=== PATIENT | female | born 1945 | race Caucasian/White ===

== ENCOUNTER 2016-12-28 10:58 | Inpatient (IN) ==
--- NOTE | 2016-12-28 11:53 | Emergency Department Note ---
Richard Lemons Brittany, am scribing for, and in the presence of, Messi Barahona MD 11:35. Jun Lemons Robert M, MD, personally performed the services described in this documentation, ascribed by Susanna Ramos in my presence, and it is both accurate and complete . Arrival - Arrival Chief Complaint: Weakness ED Nursing Triage Note: generalized weakness, pt has been sitting in a chair for 2 days unable to get up, pt denies pain or discomfort, just states she was unable to get up,. accu check per ems 170mg/dl Mode of Arrival: Stretcher Limitations: No Limitations Source: Patient, RN Notes Reviewed - History of Present Illness HPI Narrative: Patient is a 71 y/o disheveled, obese white female presenting to the ED by EMS from home for further evaluation of generalized weakness x1 week, worsening in the last two days. Patient reports that she had been seated in a chair x2 days due to inability to get herself up from the chair. Patient denies any associated N/V, pain or discomforts. She reports that while in the chair she did urinate and have a bowel movement due to inability to get up, stating "I had no choice." Patient appears to have urine and fecal matter on her clothing. Patient reports a history of Diabetes Mellitus. She does note having chronically swollen lower extremities and states that she has not been able to get her diuretic. She has no other complaint/pain in the ED at this time. Onset (ago): week(s) (1) Consistency: constant Allergies/Adverse Reactions: Allergies Allergy/AdvReac Type Severity Reaction Status Date / Time No Known Allergies Allergy Verified 12/28/16 11:20 Home Medications: Home Medications Medication Instructions Recorded Confirmed Type Aspirin EC Tab 325 mg PO DAILY 12/28/16 12/28/16 History Atorvastatin [Lipitor] 40 mg PO BEDTIME 12/28/16 12/28/16 History Carvedilol [Carvedilol] 6.25 mg PO BID W/MEALS 12/28/16 12/28/16 History Cyanocobalamin (Vitamin B-12) 1,000 mcg PO DAILY 12/28/16 12/28/16 History [Vitamin B-12] Dabigatran [Pradaxa] 150 mg PO DAILY 12/28/16 12/28/16 History Ferrous Sulfate 325 mg PO DAILY 12/28/16 12/28/16 History Furosemide Tab [Lasix Tab] 80 mg PO BID DIURETIC 12/28/16 12/28/16 History Glimepiride [Glimepiride] 4 mg PO BID 12/28/16 12/28/16 History Magnesium Oxide 400 mg PO DAILY 12/28/16 12/28/16 History Meclizine [Antivert] 25 mg PO TID PRN 12/28/16 12/28/16 History Meloxicam 7.5 mg PO DAILY 12/28/16 12/28/16 History Phenytoin ER Cap [Dilantin Cap] 400 mg PO BEDTIME 12/28/16 12/28/16 History Potassium Chloride [Klor-Con 10] 10 meq PO DAILY 12/28/16 12/28/16 History dilTIAZem HCl [Diltiazem ER] 360 mg PO DAILY 12/28/16 12/28/16 History metFORMIN [Glucophage] 1,000 mg PO BID W/MEALS 12/28/16 12/28/16 History Review of System - Review of System 12 point system: reviewed and no additional remarkable complaints except as stated - Review of System Constitutional: Present: weakness (generalized). Absent: chills, diaphoresis, fever Eyes: Absent: vision change Head/Ears/Nose/Throat: Absent: nasal drainage, sore throat Respiratory: Absent: respiratory distress Cardiovascular: Absent: chest pain Gastrointestinal: Absent: abdominal pain, nausea, vomiting, diarrhea Genitourinary female: Absent: dysuria, frequency, urgency Musculoskeletal: Present: other (lower extremity swelling). Absent: arm pain, back pain, leg pain, neck pain Skin: Absent: rash Neurological: Absent: headache Psychiatric: Absent: anxiety, depression Medical,Surgical,& Family Hx - Medical History Cardio: History of: Cardiac Dysrhythmia (AFIB), CHF, CAD, Hypertension, [place] Neurology: History of: Cerebrovascular Accident, Seizures Endocrine: History of: Diabetes Mellitus (NIDDM) Respiratory: No history of: COPD Renal: History of: Renal Problems (ARF) - Surgical History Cardiac Surgeries: Sugical HX of: Femoral-Popliteal Bypass Graft, Cardiac Catheterization (2002 here at [facility] by Dr. Jiang), Cardiac Surgery (CABG) - Family History Family History: Reports;: Family Hypertension (Mother) - Social History Smoking Status: Never smoker Exam Vital Signs: Vital Signs Temperature 99.3 F 12/28/16 10:58 Pulse Rate 122 H 12/28/16 10:58 Respiratory Rate 20 12/28/16 10:58 O2 Sat by Pulse Oximetry 94 L 12/28/16 10:58 - General General appearance: alert, in no apparent distress, obese, other (disheveled appearing white female, clothing covered in urine and fecal matter) - Head Head exam: Present: atraumatic, normocephalic, normal inspection - Eye Eye exam: Present: normal appearance, PERRL, EOMI - ENT ENT exam: Present: normal exam, normal oropharynx - Neck Neck exam: Present: normal inspection, full ROM, trachea midline - Chest Chest inspection: Present: normal inspection, symmetric chest wall rise - Respiratory Respiratory exam: Present: normal lung sounds bilaterally - Cardiovascular Cardiovascular exam: Present: regular rate, normal rhythm, normal heart sounds - Abdominal Exam Abdominal exam: Present: soft, normal bowel sounds. Absent: tenderness - Extremities Exam Extremities exam: Absent: normal inspection (evidence of chronic venous disease , swollen bilateral lower extremities with thickened skin and there is a bulla noted to the anterior left ankle) - Back Exam Back exam: Present: normal inspection - Neurological Exam Neurological exam: Present: alert, oriented X3, CN II-XII intact. Absent: motor sensory deficit - Psychiatric Psychiatric exam: Present: normal affect, normal mood - Skin Skin exam: Present: warm, dry, other (bulla noted to the anterior left ankle) Course - Consultations Consultation #1: We will admit to the hospitalist service. Time: 14:01 Results - Labs CBC & BMP: 12/28/16 12:57 12/28/16 12:57 Lab Results: I have reviewed the patients labs Labs: Lab Results WBC 9.8 T/CUMM (4-12) 12/28/16 12:57 RBC 5.77 MC/CUMM (3.8-5.5) H 12/28/16 12:57 Hgb 16.6 GM/DL (12.0-16.0) H 12/28/16 12:57 Hct 52.2 VOL% (35.7-47.0) H 12/28/16 12:57 MCV 90.5 FL (87-102) 12/28/16 12:57 MCH 29 PG (27-34) 12/28/16 12:57 MCHC 31.8 GM/DL (32-36) L 12/28/16 12:57 RDW 18.4 % (9.3-17.3) H 12/28/16 12:57 Plt Count 194 T/CUMM (130-400) 12/28/16 12:57 MPV 10.2 FL (9.6-12.0) 12/28/16 12:57 Neut % (Auto) 81.7 % (38.7-73.9) H 12/28/16 12:57 Lymph % (Auto) 8.2 % (21.3-54.2) L 12/28/16 12:57 [place] % (Auto) 8.7 % (1.7-12.7) 12/28/16 12:57 Eos % (Auto) 0.2 % (0.00-10.9) 12/28/16 12:57 Baso % (Auto) 0.7 % (0.0-0.8) 12/28/16 12:57 Neut # (Auto) 8.0 10*3/uL (1.4-7.4) H 12/28/16 12:57 Lymph # (Auto) 0.8 10*3/uL (1.4-4.0) L 12/28/16 12:57 [place] # (Auto) 0.9 10*3/uL (0.11-0.8) H 12/28/16 12:57 Eos # (Auto) 0.0 10*3/uL (0.0-0.87) 12/28/16 12:57 Baso # (Auto) 0.1 10*3/uL (0.0-0.2) 12/28/16 12:57 Immature Gran % 0.5 % 12/28/16 12:57 Nucleated RBC % 0.0 /100WBC 12/28/16 12:57 Immature Gran # 0.05 # 12/28/16 12:57 Nucleated RBCs # 0.00 10*3/uL 12/28/16 12:57 Sodium 140 MMOL/L (136-145) 12/28/16 12:57 Potassium 4.0 MMOL/L (3.5-5.1) 12/28/16 12:57 Chloride 106 MMOL/L (98-107) 12/28/16 12:57 Carbon Dioxide 26 MMOL/L (21-32) 12/28/16 12:57 Anion Gap 12.0 MMOL/L (5.0-15.0) 12/28/16 12:57 BUN 30 MG/DL (7-18) H 12/28/16 12:57 Creatinine 1.30 MG/DL (0.55-1.02) H 12/28/16 12:57 GFR Calculation 48 ML/MIN 12/28/16 12:57 BUN/Creatinine Ratio 23.00 RATIO (6.00-20.00) H 12/28/16 12:57 Glucose 174 MG/DL (74-106) H 12/28/16 12:57 Calculated Osmolality 288.4 MOS/KG (273-304) 12/28/16 12:57 Lactic Acid 2.0 MMOL/L (0.4-2.0) 12/28/16 12:57 Calcium 9.1 MG/DL (8.5-10.1) 12/28/16 12:57 Magnesium 1.8 MG/DL (1.8-2.4) 12/28/16 12:57 Total Creatine Kinase 166 U/L (26-192) 12/28/16 12:57 CK-MB (CK-2) 2.3 NG/ML (0.5-3.6) 12/28/16 12:57 Troponin I 0.059 NG/ML (0.00-0.045) H 12/28/16 12:57 B-Natriuretic Peptide 2595 PG/ML (2-100) H 12/28/16 12:57 Amylase 26 U/L (25-115) 12/28/16 12:57 Lipase 72.0 U/L (73-393) L 12/28/16 12:57 Urine Color Josselyn (Yellow) 12/28/16 11:45 Urine Appearance Cloudy (Clear) 12/28/16 11:45 Urine pH 5.0 (4.5-8.0) 12/28/16 11:45 Ur Specific [place] 1.017 (1.001-1.035) 12/28/16 11:45 Urine Protein >=500 MG/DL 12/28/16 11:45 Urine Glucose (UA) Negative mg/dL (Negative) 12/28/16 11:45 Urine Ketones Negative mg/dL (Negative) 12/28/16 11:45 Urine Blood Small mg/dL (Negative) 12/28/16 11:45 Urine Nitrate Negative (Negative) 12/28/16 11:45 Urine Bilirubin Negative mg/dL (Negative) 12/28/16 11:45 Urine Urobilinogen 2.0 EU/DL (0.2-1.0) H 12/28/16 11:45 Urine Leukocytes Moderate [place]/ul (Negative) H 12/28/16 11:45 Urine RBC 4 /HPF (0-4) 12/28/16 11:45 Urine WBC 50 /HPF (0-6) 12/28/16 11:45 Urine WBC Clumps Many /HPF (<1) 12/28/16 11:45 Ur Squamous Epith Cells Occasional /HPF (0-10) 12/28/16 11:45 Urine Bacteria Many /HPF (Few) 12/28/16 11:45 Urine Mucus Occasional /LPF (Occasional) 12/28/16 11:45 Ur Culture Indicated? Results to follow 12/28/16 11:45 Urine Myoglobin Negative (Negative) 12/28/16 11:45 Lab Results WBC 9.8 T/CUMM (4-12) 12/28/16 12:57 RBC 5.77 MC/CUMM (3.8-5.5) H 12/28/16 12:57 Hgb 16.6 GM/DL (12.0-16.0) H 12/28/16 12:57 Hct 52.2 VOL% (35.7-47.0) H 12/28/16 12:57 MCV 90.5 FL (87-102) 12/28/16 12:57 MCH 29 PG (27-34) 12/28/16 12:57 MCHC 31.8 GM/DL (32-36) L 12/28/16 12:57 RDW 18.4 % (9.3-17.3) H 12/28/16 12:57 Plt Count 194 T/CUMM (130-400) 12/28/16 12:57 MPV 10.2 FL (9.6-12.0) 12/28/16 12:57 Neut % (Auto) 81.7 % (38.7-73.9) H 12/28/16 12:57 Lymph % (Auto) 8.2 % (21.3-54.2) L 12/28/16 12:57 [place] % (Auto) 8.7 % (1.7-12.7) 12/28/16 12:57 Eos % (Auto) 0.2 % (0.00-10.9) 12/28/16 12:57 Baso % (Auto) 0.7 % (0.0-0.8) 12/28/16 12:57 Neut # (Auto) 8.0 10*3/uL (1.4-7.4) H 12/28/16 12:57 Lymph # (Auto) 0.8 10*3/uL (1.4-4.0) L 12/28/16 12:57 [place] # (Auto) 0.9 10*3/uL (0.11-0.8) H 12/28/16 12:57 Eos # (Auto) 0.0 10*3/uL (0.0-0.87) 12/28/16 12:57 Baso # (Auto) 0.1 10*3/uL (0.0-0.2) 12/28/16 12:57 Immature Gran % 0.5 % 12/28/16 12:57 Nucleated RBC % 0.0 /100WBC 12/28/16 12:57 Immature Gran # 0.05 # 12/28/16 12:57 Nucleated RBCs # 0.00 10*3/uL 12/28/16 12:57 Sodium 140 MMOL/L (136-145) 12/28/16 12:57 Potassium 4.4 MMOL/L (3.5-5.1) 12/28/16 12:57 Chloride 105 MMOL/L (98-107) 12/28/16 12:57 Carbon Dioxide 25 MMOL/L (21-32) 12/28/16 12:57 Anion Gap 14.4 MMOL/L (5.0-15.0) 12/28/16 12:57 BUN 31 MG/DL (7-18) H 12/28/16 12:57 Creatinine 1.20 MG/DL (0.55-1.02) H 12/28/16 12:57 GFR Calculation 53 ML/MIN 12/28/16 12:57 BUN/Creatinine Ratio 25.00 RATIO (6.00-20.00) H 12/28/16 12:57 Glucose 173 MG/DL (74-106) H 12/28/16 12:57 Calculated Osmolality 289.4 MOS/KG (273-304) 12/28/16 12:57 Lactic Acid 2.0 MMOL/L (0.4-2.0) 12/28/16 12:57 Calcium 9.1 MG/DL (8.5-10.1) 12/28/16 12:57 Magnesium 1.8 MG/DL (1.8-2.4) 12/28/16 12:57 Total Bilirubin 1.90 MG/DL (0.2-1.0) H 12/28/16 12:57 AST 23 U/L (0-37) 12/28/16 12:57 ALT 22 U/L (13-56) 12/28/16 12:57 Alkaline Phosphatase 98 U/L (45-117) 12/28/16 12:57 Total Creatine Kinase 166 U/L (26-192) 12/28/16 12:57 CK-MB (CK-2) 2.3 NG/ML (0.5-3.6) 12/28/16 12:57 Troponin I 0.059 NG/ML (0.00-0.045) H 12/28/16 12:57 B-Natriuretic Peptide 2595 PG/ML (2-100) H 12/28/16 12:57 Total Protein 7.1 G/DL (6.4-8.3) 12/28/16 12:57 Albumin 3.2 G/DL (3.4-5.0) L 12/28/16 12:57 Globulin 3.9 G/DL (2.3-3.5) H 12/28/16 12:57 Albumin/Globulin Ratio 0.8 RATIO (1.1-2.2) L 12/28/16 12:57 Amylase 26 U/L (25-115) 12/28/16 12:57 Lipase 72.0 U/L (73-393) L 12/28/16 12:57 Urine Color Josselyn (Yellow) 12/28/16 11:45 Urine Appearance Cloudy (Clear) 12/28/16 11:45 Urine pH 5.0 (4.5-8.0) 12/28/16 11:45 Ur Specific [place] 1.017 (1.001-1.035) 12/28/16 11:45 Urine Protein >=500 MG/DL 12/28/16 11:45 Urine Glucose (UA) Negative mg/dL (Negative) 12/28/16 11:45 Urine Ketones Negative mg/dL (Negative) 12/28/16 11:45 Urine Blood Small mg/dL (Negative) 12/28/16 11:45 Urine Nitrate Negative (Negative) 12/28/16 11:45 Urine Bilirubin Negative mg/dL (Negative) 12/28/16 11:45 Urine Urobilinogen 2.0 EU/DL (0.2-1.0) H 12/28/16 11:45 Urine Leukocytes Moderate [place]/ul (Negative) H 12/28/16 11:45 Urine RBC 4 /HPF (0-4) 12/28/16 11:45 Urine WBC 50 /HPF (0-6) 12/28/16 11:45 Urine WBC Clumps Many /HPF (<1) 12/28/16 11:45 Ur Squamous Epith Cells Occasional /HPF (0-10) 12/28/16 11:45 Urine Bacteria Many /HPF (Few) 12/28/16 11:45 Urine Mucus Occasional /LPF (Occasional) 12/28/16 11:45 Ur Culture Indicated? Results to follow 12/28/16 11:45 Urine Myoglobin Negative (Negative) 12/28/16 11:45 - Diagnostic Findings Procedure: Chest x-ray: report reviewed by me Disposition Clinical Impression: CHF (congestive heart failure), Generalized weakness, Anasarca, Bilateral lower leg cellulitis, Type 2 diabetes mellitus, Physical deconditioning, UTI ( urinary tract infection) Case discussed with: patient Disposition: Still a Patient Condition: Stable Time of Disposition: 14:01
[2016-12-28 12:04] LABS: Apearance,Urine CLOUDY (Clear); Bacteria,Urine Many /HPF (Few); Bilirubin,Urine Negative (Negative); Blood, Urine Small mg/dL (Negative); Glucose,Urine (UA) Negative (Negative); Ketones,Urine Negative (Negative); Mucus,Urine Occasional /LPF (Occasional); Nitrite,Urine Negative (Negative); Protein,Urine >=500 MG/DL; RBC,Urine 4 /HPF (0-4); Squamous Epithelial Cell,Urine Occasional /HPF (0-10); Urine Color Amber (Yellow); Urine Specific Gravity 1.017 (1.001-1.035); WBC,Urine 50 /HPF (0-6)
--- NOTE | 2016-12-28 12:27 | XRay Report ---
History: Weakness. History of CHF and hypertension Date: 12/28/2016 Study: Chest x-ray AP portable Comparison exam: July 12, 2015 chest x-ray There is cardiomegaly and pulmonary vascular engorgement. The mediastinal contours are similar to the previous study. There is some hazy bibasilar pulmonary edema and mild bilateral pleural effusion. Osseous structures are unchanged. Impression: Cardiomegaly and evidence of CHF with mild bibasilar pulmonary edema and pleural effusion PROCEDURE INTERPRETED AT [facility] DEPARTMENT OF RADIOLOGY Final Report Signed by: Dr. Edith Vásquez
[2016-12-28 13:12] LABS: Basophils # 0.1 10*3/uL (0.0-0.2); Basophils % 0.7 % (0.0-0.8); Eosinophils % 0.2 % (0.00-10.9); Hematocrit 52.2 VOL% (35.7-47.0); Hemoglobin 16.6 GM/DL (12.0-16.0); Immature Granulocytes % 0.5 %; Immature Granulocytes Absolute 0.05 #; Lymphocytes # 0.8 10*3/uL (1.4-4.0); Lymphocytes % 8.2 % (21.3-54.2); Mean Corpuscular HGB Conc 31.8 GM/DL (32-36); Mean Corpuscular Hemoglobin 29 PG (27-34); Mean Corpuscular Volume 90.5 FL (87-102); Mean Platelet Volume 10.2 FL (9.6-12.0); Monocytes # 0.9 10*3/uL (0.11-0.8); Monocytes % 8.7 % (1.7-12.7); Neutrophils % 81.7 % (38.7-73.9); Platelet Count 194 T/CUMM (130-400); Red Blood Count 5.77 MC/CUMM (3.8-5.5); Red Cell Distribution Width 18.4 % (9.3-17.3); White Blood Count 9.8 T/CUMM (4-12)
[2016-12-28 13:27] LABS: Calcium 9.1 MG/DL (8.5-10.1); Magnesium 1.8 MG/DL (1.8-2.4); Osmolality,Calculated 288.4 MOS/KG (273-304)
[2016-12-28 13:38] LABS: Troponin I Only 0.059 NG/ML (0.00-0.045)
--- NOTE | 2016-12-28 14:33 | Hospitalist History & Physical ---
History of Present Illness History of present illness: Ms. Dawson is a 71 year old female Home Medications Medication Instructions Recorded Confirmed Type Aspirin EC Tab 325 mg PO DAILY 12/28/16 12/28/16 History Atorvastatin [Lipitor] 40 mg PO BEDTIME 12/28/16 12/28/16 History Carvedilol [Carvedilol] 6.25 mg PO BID W/MEALS 12/28/16 12/28/16 History Cyanocobalamin (Vitamin B-12) 1,000 mcg PO DAILY 12/28/16 12/28/16 History [Vitamin B-12] Dabigatran [Pradaxa] 150 mg PO DAILY 12/28/16 12/28/16 History Ferrous Sulfate 325 mg PO DAILY 12/28/16 12/28/16 History Furosemide Tab [Lasix Tab] 80 mg PO BID DIURETIC 12/28/16 12/28/16 History Glimepiride [Glimepiride] 4 mg PO BID 12/28/16 12/28/16 History Magnesium Oxide 400 mg PO DAILY 12/28/16 12/28/16 History Meclizine [Antivert] 25 mg PO TID PRN 12/28/16 12/28/16 History Meloxicam 7.5 mg PO DAILY 12/28/16 12/28/16 History Phenytoin ER Cap [Dilantin Cap] 400 mg PO BEDTIME 12/28/16 12/28/16 History Potassium Chloride [Klor-Con 10] 10 meq PO DAILY 12/28/16 12/28/16 History dilTIAZem HCl [Diltiazem ER] 360 mg PO DAILY 12/28/16 12/28/16 History metFORMIN [Glucophage] 1,000 mg PO BID W/MEALS 12/28/16 12/28/16 History Allergies Allergy/AdvReac Type Severity Reaction Status Date / Time No Known Allergies Allergy Verified 12/28/16 11:20 Medical,Surgical,& Family Hx - Medical History Cardio: History of: Cardiac Dysrhythmia (AFIB), CHF, CAD, Hypertension, [place] Neurology: History of: Cerebrovascular Accident, Seizures Endocrine: History of: Diabetes Mellitus (NIDDM) Respiratory: No history of: COPD Renal: History of: Renal Problems (ARF) - Surgical History Cardiac Surgeries: Sugical HX of: Femoral-Popliteal Bypass Graft, Cardiac Catheterization (2002 here at [facility] by Dr. Jiang), Cardiac Surgery (CABG) - Family History Family History: Reports;: Family Hypertension (Mother) - Social History Smoking Status: Never smoker Exam - Constitutional Vitals: Period Temp Pulse Resp BP Sys/Funk Pulse Ox Last 24 Hr 99.3 F-99.3 F 122-122 18-20 94 Results - Labs CBC & BMP: 12/28/16 12:57 12/28/16 12:57
[2016-12-28] MEDS ORDERED: ACETAMINOPHEN 325 MG TABLET PO PRN (15:06)
[2016-12-28] MEDS ORDERED: ONDANSETRON 4 MG/2 ML VIAL IV PRN (15:06)
[2016-12-28] MEDS ORDERED: DEXTROSE 50% 25 GM/50 ML VIAL IV PRN (15:06)
[2016-12-28] MEDS ORDERED: GLUCAGON 1 MG VIAL IM PRN (15:06)
[2016-12-28] MEDS ORDERED: hydrALAZINE 20 MG/1 ML VIAL IV PRN (15:18)
[2016-12-28 15:25] LABS: Albumin 3.2 G/DL (3.4-5.0); Bilirubin,Total 1.9 MG/DL (0.2-1.0); Calcium 9.1 MG/DL (8.5-10.1); Osmolality,Calculated 289.4 MOS/KG (273-304); Potassium 4.4 MMOL/L (3.5-5.1); Total Protein 7.1 G/DL (6.4-8.3)
--- NOTE | 2016-12-28 15:52 | Hospitalist Progress Note ---
Assessment and Plan - Time spent with patient Time spent with patient: Greater than 30 minutes (1) Bilateral lower leg cellulitis Status: Acute Assessment and plan: Generalized weakness; CHF; Hypertension: Admit Re-check labs (A.M.) including BNP diuretics start on Antibiotics Check A1c Venous Doppler of legs CXR in a.m. Consult OT and PT. Consult Wound Care Consulted Cardiology: (Patient of Dr Ferrer.): Dr Lorenzo for CHF exacerbation. Start Nitro paste and hydralazine and continue home meds to control BP. Monitor BS; add sliding scale protocol. Current Visit: Yes (2) CHF (congestive heart failure) Status: Acute Current Visit: Yes (3) Generalized weakness Status: Acute Current Visit: Yes (4) Type 2 diabetes mellitus Status: Acute Current Visit: Yes (5) Atrial fibrillation Status: Acute Current Visit: No Hospitalist: Subjective Interval history: Ms Dawson is chronically ill 71 y/o white female that presented to [facility] ER this afternoon via EMS for evaluation generalized weakness x1 week, worsening in the last 2 days. Patient has a medical history significant for Afib, CHF, CAD, HTN, [place], CVA, Seizures, DM, ARF. Patient has a surgical history: CABG; Cardiac Catherization; Femoral-Popliteal Bypass graft. The patient reports she had been seated in a chair at home x2 days d/t the inability to get herself up from chair d/t "too weak". Patient denies any nausea, vomiting, or pain. She reports urinating and having a bowel movement on herself due to inability to get up "I could not get up so I just had to let it go". Presented to the ED via EMS(neighbor called) the patient was assessed. The patient had a low Temp 99.3; RR 20; 94% Sat on 2L NC. Labs were obtained: WBC 9.8; Hgb 16.6; Hct 52.2; Plt 194; Sodium 140; Potassoim 4.4; BUN 31; Creatinine 1.20; GFR 53; Lactic Acid 2.0; Total Bilirubin 1.90; AST 23; ALT 22; Troponin 0.059; BNP 2595; Albumin 3.2; Urine: [place], Cloudy; Moderate Leukocytes ; WBC 50; negative nitrate. Chest xray: Cardiomegaly and evidence of CHF with mild bibasilar pulmonary edema and pleural effusion. After brief discussion with Dr Barahona and Dr Gurrola, the patient will be admitted to the hospitalist services for further evaluation and care. Consulted Dr Lorenzo - content management specialist for cardiac services. Medications has been reviewed and reconciliation will follow. Code Status: Full Code. PCP MD: Dr Lew Military Communications Specialist : Dr Ferrer Exam - Constitutional Vitals: Period Temp Pulse Resp BP Sys/Funk Pulse Ox Last 24 Hr 99.3 F-99.3 F 122-122 18-20 94 General appearance: no acute distress - Head Head exam: Present: normal inspection - Eye Eye exam: Present: EOMI Pupils: Present: WILBERT - Neck Neck exam: Present: normal inspection - Respiratory Respiratory exam: Present: clear to auscultation bilaterally - Cardiovascular Cardiovascular exam: Present: irregular rhythm (Afib history) - GI/Abdominal GI/Abdominal exam: Present: normal bowel sounds, soft. Absent: guarding, tenderness, rebound - Expanded Left Lower Lower leg exam: Present: swelling (dry, without weeping noted; large anterior fluid filled Bulla), erythema Ankle exam: Present: swelling Foot/Toe exam: Present: swelling Right Lower Lower leg exam: Present: swelling (entire right and left lower leg red ( cellulitis) without weeping, dry), erythema - Neurological Exam Neurological exam: Present: alert, oriented X3 - Psychiatric Psychiatric exam: Present: normal mood - Skin Skin exam: Present: warm, dry, other (extensive redness and swelling to bilteral lower legs; left anterior ankle large fluid filled bulla) Results - Labs CBC & BMP: 12/28/16 12:57 12/28/16 12:57 Lab Results: I have reviewed the past 24 hour labs - Diagnostic Findings Procedure: X-ray: report reviewed by me (cardiomegaly and evidence of CHF with mild bibasilar pulmonary edema and pleural effusion) Quality Measures - VTE Contraindication to Mechanical VTE Prophylaxis: Local Inflammation
[2016-12-28] MEDS: INSULIN LISPRO 100 UNIT/ML SUBCUT SCH ×2 (16:52→22:13)
[2016-12-28 18:07] LABS: INR 1.3; PT Patient Result 14.4 SECS
[2016-12-28] MEDS: FUROSEMIDE 40 MG/4 ML VIAL IV SCH (18:40)
[2016-12-28] MEDS: CEFTAROLINE 600 MG in SODIUM CHLORIDE 0.9% 100 ML IV SCH (18:44)
[2016-12-28] MEDS: CARVEDILOL 6.25 MG TABLET PO SCH (18:47)
[2016-12-28] MEDS: hydrALAZINE 25 MG TABLET PO SCH ×2 (18:47→22:15)
[2016-12-28] MEDS: NITROGLYCERIN 2% OINT 1 INCH/GM PACK TOP SCH (18:47)
[2016-12-28] MEDS: PHENYTOIN ER 100 MG CAPSULE PO SCH (22:14)
[2016-12-28] MEDS: GLIMEPIRIDE 4 MG TABLET PO SCH (22:14)
[2016-12-28] MEDS: ATORVASTATIN 40 MG TABLET PO SCH (22:15)
[2016-12-29] MEDS: NITROGLYCERIN 2% OINT 1 INCH/GM PACK TOP SCH ×2 (00:21→05:50)
[2016-12-29 04:30] LABS: Basophils # 0.1 10*3/uL (0.0-0.2); Eosinophils # 0.2 10*3/uL (0.0-0.87); Eosinophils % 2.8 % (0.00-10.9); Hemoglobin 13.4 GM/DL (12.0-16.0); Immature Granulocytes % 0.4 %; Immature Granulocytes Absolute 0.03 #; Lymphocytes # 0.9 10*3/uL (1.4-4.0); Lymphocytes % 11.3 % (21.3-54.2); Mean Corpuscular HGB Conc 31.9 GM/DL (32-36); Mean Corpuscular Hemoglobin 29 PG (27-34); Mean Corpuscular Volume 89.2 FL (87-102); Mean Platelet Volume 10.6 FL (9.6-12.0); Monocytes # 0.7 10*3/uL (0.11-0.8); Monocytes % 8.2 % (1.7-12.7); Neutrophils # 6.2 10*3/uL (1.4-7.4); Neutrophils % 76.3 % (38.7-73.9); Platelet Count 154 T/CUMM (130-400); Red Blood Count 4.71 MC/CUMM (3.8-5.5); Red Cell Distribution Width 17.3 % (9.3-17.3); White Blood Count 8.2 T/CUMM (4-12)
[2016-12-29 05:07] LABS: Albumin 2.3 G/DL (3.4-5.0); Bilirubin,Total 2.1 MG/DL (0.2-1.0); Calcium 8.5 MG/DL (8.5-10.1); Magnesium 1.5 MG/DL (1.8-2.4); Osmolality,Calculated 295.6 MOS/KG (273-304); Potassium 3.8 MMOL/L (3.5-5.1)
[2016-12-29] MEDS: FUROSEMIDE 40 MG/4 ML VIAL IV SCH ×2 (05:44→15:47)
[2016-12-29] MEDS: CEFTAROLINE 600 MG in SODIUM CHLORIDE 0.9% 100 ML IV SCH ×2 (05:48→17:47)
[2016-12-29] MEDS: INSULIN LISPRO 100 UNIT/ML SUBCUT SCH ×4 (07:55→22:25)
[2016-12-29] MEDS: CARVEDILOL 6.25 MG TABLET PO SCH ×2 (08:54→16:09)
[2016-12-29] MEDS ORDERED: DILTIAZEM CD 180 MG CAPSULE PO SCH (09:00)
--- NOTE | 2016-12-29 09:08 | Hospitalist Progress Note ---
Assessment and Plan (1) Systolic CHF, acute on chronic Status: Acute Assessment and plan: Impression: 1. Acute on chronic systolic congestive heart failure 2. Probable cellulitis bilateral lower extremities 3. Atrial fibrillation 4. Venous stasis disease 5. Possible urinary tract infection (positive urine culture) Plan: Diuresis for the heart failure. Continue home medications. Antibiotics and elevation for the venous stasis disease and secondary cellulitis. Physical therapy evaluation. This note was completed using [employer] voice recognition software. There may be rn plastics errors as a result. Current Visit: Yes Hospitalist: Subjective Interval history: Follow-up acute on chronic systolic congestive heart failure, atrial fibrillation, and cellulitis. The patient says that she was too weak to get to her medications, and had to spend a couple of days in her chair. She lives alone. She is usually mobile at home with a walker or cane. She was hospitalized here last year in atrial fibrillation. At that time, she had an echocardiogram that showed an ejection fraction of 30%. She ended up going to the rehab unit and to the LTAC, and then eventually made at home. She says that she is not interested in repeating that sequence of events. She had bypass grafting in this facility in 2002. She reports that she takes all of her medications, except for the 2 day episode mentioned above when she was too weak to get to her pills. Exam - Constitutional Vitals: Period Temp Pulse Resp BP Sys/Funk Pulse Ox Last 24 Hr 97.2 F-99.3 F 83-122 18-20 124-147/75-90 94-97 Vital signs are noted above. Heart is irregular with a 2/6 systolic ejection murmur. She has a few rhonchi in the chest. Abdomen is soft with no mass. She has chronic venous stasis changes with generalized edema and erythema of both lower extremities. She is awake and alert Results - Labs CBC & BMP: 12/29/16 04:21 12/29/16 04:20 Lab Results: I have reviewed the past 24 hour labs - Diagnostic Findings Procedure: Chest x-ray: image reviewed by me (She has pulmonary vascular congestion) Quality Measures - VTE Contraindication to Mechanical VTE Prophylaxis: Local Inflammation
--- NOTE | 2016-12-29 09:25 | EKG Report ---
Stationary ECG Study [facility] Test Date: 12/29/2016 8:12:53 AM Pat Name: RD BLANCHARD Department: Room: 222 Gender: F Spectrograph Operator: : [id number] Requested by: Stormy Gurrola Order Number: [id number] Reading MD: NALDO ELLIS Intervals [place] Rate: 91 P: 999 MA: 0 QRS: 126 QRSD: 105 T: 263 QT: 405 QTc: 454 Interpretive Statements ATRIAL FIBRILLATION MARKED RIGHT AXIS DEVIATION Electronically Signed On 12-29-16 13:06:34 CDT by NALDO ELLIS [email or web address]
[2016-12-29] MEDS: CYANOCOBALAMIN 500 MCG TABLET PO SCH (09:47)
[2016-12-29] MEDS: FERROUS SULFATE 325 MG TABLET PO SCH (09:48)
[2016-12-29] MEDS: GLIMEPIRIDE 4 MG TABLET PO SCH ×2 (09:48→22:27)
[2016-12-29] MEDS: MECLIZINE 25 MG TABLET PO PRN (09:48)
[2016-12-29] MEDS: ASPIRIN EC 325 MG TABLET PO SCH (09:48)
[2016-12-29] MEDS: DABIGATRAN 150 MG CAPSULE PO SCH (09:48)
[2016-12-29] MEDS: hydrALAZINE 25 MG TABLET PO SCH (09:49)
[2016-12-29] MEDS: MAGNESIUM OXIDE 400 MG TABLET PO SCH (09:49)
[2016-12-29] MEDS: PANTOPRAZOLE 40 MG TABLET PO SCH (09:51)
--- NOTE | 2016-12-29 11:03 | Cardiology Consult Note ---
Assessment and Plan (1) CHF (congestive heart failure) Status: Acute Current Visit: Yes (2) Generalized weakness Status: Acute Current Visit: Yes (3) Bilateral lower leg cellulitis Status: Acute Current Visit: Yes (4) Coronary artery disease Status: Chronic Current Visit: Yes (5) Hypertension Status: Chronic Current Visit: Yes (6) Hyperlipidemia Status: Chronic Current Visit: Yes (7) Diabetes mellitus Status: Chronic Current Visit: Yes (8) Atrial fibrillation Status: Chronic Current Visit: No Qualifiers: Atrial fibrillation type: chronic Qualified Code(s): I48.2 - Chronic atrial fibrillation (9) Physical deconditioning Status: Acute Current Visit: Yes (10) UTI (urinary tract infection) Status: Acute Current Visit: Yes History of Present Illness - Data of Consult Patient: known to practice within the last 3 years Consult date: 12/29/16 Requesting Physician: Riccardo Nicholas Primary care physician: Wing Lew - Consult Narrative Reason for consult: CHF History of present illness: Wrecking Supervisor: Dr. Ferrer Ms. Dawson is a 71 year old female with a history of coronary artery disease, Ischemic cardiomyopathy with congestive heart failure, chronic persistent atrial fibrillation, hypertension, hyperlipidemia, diabetes mellitus, and CVA 2. Status post CABG February 2003 with CERRATO to LAD, vein graft to intermediate ramus branch, vein graft to RCA. She is admitted to the hospital with generalized weakness, congestive heart failure. It is difficult to get a clear-cut history from her. She tells me she came to the hospital because her blood pressure had been low for 3 days, with a systolic pressure in the 50s. She denies any recent medication changes. She has extreme bilateral lower extremity edema, she tells me this is worse than usual for her. Chronic edema is documented in her last note from Dr. Ferrer. She has painful whelps on these legs. She has had some orthopnea and worsening dyspnea on exertion over the last few days as well. She denies any chest pain or pressure. She has not had any tachypalpitations, fevers, chills. It is difficult to really ascertain her medication compliance, I suspect she is not routinely medically compliant. The last note I see from Dr. Ferrer was 2014. She tells me that when she was prescribed her Lasix, it was "too much" and that she urinated "too much". However when I point out that she has not seen Dr. Ferrer in 2 years and ask about this most recent prescription, she tells me that it is from him. So it seems that she is probably only taking this sporadically and has not discussed any difficulties with Dr. Ferrer. When asked about the Pradaxa, she ultimately acknowledges that she had stopped taking this because "she learned it could cause had bleeding, and she had already had 2 strokes). She tells me that she has not changed any doctors. When I asked her who has been prescribing her medications, she tells me her last visit with Dr. Lew was last year some time, I do not know the date. I am concerned that she may not be taking her medications routinely or as prescribed and that this could be contributing to her symptoms. She denies any melena, bright red blood per rectum, hematuria. She occasionally has some arthralgias. She reports generalized weakness. She has not had any new neurologic deficits. She reports taking her aspirin routinely. Impression and plan: 1. Congestive heart failure-she appears to be [place] Heart Association class III to IV. This is acute on chronic secondary to systolic dysfunction and possibly medication noncompliance. We will reintroduce her afterload reduction and diuretic therapy, observe her progress. Underlying arrhythmia of atrial fibrillation is also contributing to her symptoms. We will order repeat echocardiogram. 2. Chronic atrial fibrillation-this appears to be rate controlled. She has not been taking anticoagulation routinely. I recommend reinitiating therapy if she is agreeable to this. I did discuss that given the fact that she has had 2 strokes and has underlying atrial fibrillation, and does not appear to have a contraindication to anticoagulation, she should consider resuming her therapy. 3. Bilateral lower extremity cellulitis-the hospitalist service will manage this. 4. Bilateral lower extremity edema-multifactorial. We will treat with diuresis. 5. Coronary artery disease-clinically this appears to be stable. 6. Hypertension-chronic, stable. 7. Diabetes mellitus-chronic, stable. 8. Hyperlipidemia-chronic, stable. 9. Urinary tract infection-treated by hospitalist service. CC: Riccardo Nicholas MD - Home Medications and Allergies Home Medications: Home Medications Medication Instructions Recorded Confirmed Type Aspirin EC Tab 325 mg PO DAILY 12/28/16 12/28/16 History Atorvastatin [Lipitor] 40 mg PO BEDTIME 12/28/16 12/28/16 History Carvedilol [Carvedilol] 6.25 mg PO BID W/MEALS 12/28/16 12/28/16 History Cyanocobalamin (Vitamin B-12) 1,000 mcg PO DAILY 12/28/16 12/28/16 History [Vitamin B-12] Dabigatran [Pradaxa] 150 mg PO DAILY 12/28/16 12/28/16 History Ferrous Sulfate 325 mg PO DAILY 12/28/16 12/28/16 History Furosemide Tab [Lasix Tab] 80 mg PO BID DIURETIC 12/28/16 12/28/16 History Glimepiride [Glimepiride] 4 mg PO BID 12/28/16 12/28/16 History Magnesium Oxide 400 mg PO DAILY 12/28/16 12/28/16 History Meclizine [Antivert] 25 mg PO TID PRN 12/28/16 12/28/16 History Meloxicam 7.5 mg PO DAILY 12/28/16 12/28/16 History Phenytoin ER Cap [Dilantin Cap] 400 mg PO BEDTIME 12/28/16 12/28/16 History Potassium Chloride [Klor-Con 10] 10 meq PO DAILY 12/28/16 12/28/16 History dilTIAZem HCl [Diltiazem ER] 360 mg PO DAILY 12/28/16 12/28/16 History metFORMIN [Glucophage] 1,000 mg PO BID W/MEALS 12/28/16 12/28/16 History Allergies/Adverse Reactions: Allergies Allergy/AdvReac Type Severity Reaction Status Date / Time No Known Allergies Allergy Verified 12/28/16 11:20 12 point system: reviewed and no additional remarkable complaints except as stated Medical,Surgical,& Family Hx - Medical History Cardio: History of: Cardiac Dysrhythmia (AFIB), CHF, CAD, Hypertension, [facility] Neurology: History of: Cerebrovascular Accident, Seizures Endocrine: History of: Diabetes Mellitus (NIDDM) Respiratory: No history of: COPD Renal: History of: Renal Problems (ARF) Hematology: History of: Anemia - Surgical History Cardiac Surgeries: Sugical HX of: Femoral-Popliteal Bypass Graft, Cardiac Catheterization (2002 here at [facility] by Dr. Jiang), Cardiac Surgery (CABG) - Family History Family History: Reports;: Family Hypertension (Mother) - Social History Smoking Status: Never smoker Frequency of Alcohol Use: None Type of Drug Use: None Physical Examination Vital Signs Temp Pulse Resp Pulse Ox 99.3 F 122 H 18 94 L 12/28/16 10:58 12/28/16 10:58 12/28/16 10:58 12/28/16 10:58 Exam: General appearance: Obese, no acute distress - Head Head exam: Present: Hirsutism, normocephalic, atraumatic. Absent: hematoma, laceration - Eye Eye exam: Present: EOMI. Absent: conjunctival injection, nystagmus, periorbital swelling, scleral icterus, laceration to eyelids Pupils: Absent: constricted, dilated, fixed, irregular, unequal - ENT ENT exam: Present: normal exam, normal external ear exam - Neck Neck exam: Present: Exam limited by habitus, overall normal inspection. Absent : lymphadenopathy, meningismus, tenderness, thyromegaly - Respiratory Respiratory exam: Present: Exam limited by habitus, overall clear to auscultation bilaterally. Absent: accessory muscle use, chest wall tenderness - Cardiovascular Cardiovascular exam: Present: Exam limited by habitus, tones in general distant but overall irregularly irregular rate and rhythm. Absent: carotid bruit, gallop, JVD, rubs - GI/Abdominal GI/Abdominal exam: Present: Exam limited by habitus, overall normal bowel sounds. Absent: distended, firm, guarding, hernia, mass, tenderness, rebound, soft - Extremities Exam Extremities exam: Present: There is 3+ bilateral lower extremity edema with prominent skin folds consistent with decreasing edema, thickened and tense skin consistent with chronic edema, bilateral erythema and some bullae - Back Exam Back exam: Present: normal inspection. Absent: muscle spasm, vertebral tenderness - Neurological Exam Neurological exam: Present: alert, oriented X3, grossly intact without resting or intention tremor - Psychiatric Psychiatric exam: Present: normal affect, normal mood - Skin Skin exam: Present: Erythema and bulla on the bilateral lower extremities, warm , dry, intact. Absent: cyanosis, diaphoretic, urticaria Result/EKG - Labs CBC & BMP: 12/29/16 04:21 12/29/16 04:20 Lab Results: I have reviewed the past 24 hour labs Labs: Laboratory Results - last 24 hr 12/28/16 12/28/16 12/28/16 11:45 11:45 12:57 WBC 9.8 RBC 5.77 H Hgb 16.6 H Hct 52.2 H MCV 90.5 MCH 29 MCHC 31.8 L RDW 18.4 H Plt Count 194 MPV 10.2 Neut % (Auto) 81.7 H Lymph % (Auto) 8.2 L [place] % (Auto) 8.7 Eos % (Auto) 0.2 Baso % (Auto) 0.7 Neut # (Auto) 8.0 H Lymph # (Auto) 0.8 L [place] # (Auto) 0.9 H Eos # (Auto) 0.0 Baso # (Auto) 0.1 Immature Gran % 0.5 Nucleated RBC % 0.0 Immature Gran # 0.05 Nucleated RBCs # 0.00 INR PT Patient/Control Mix Sodium Potassium Chloride Carbon Dioxide Anion Gap BUN Creatinine GFR Calculation BUN/Creatinine Ratio Glucose POC Glucose Hemoglobin A1c Calculated Osmolality Lactic Acid Calcium Magnesium Total Bilirubin AST ALT Alkaline Phosphatase Total Creatine Kinase CK-MB (CK-2) Troponin I B-Natriuretic Peptide Total Protein Albumin Globulin Albumin/Globulin Ratio Amylase Lipase Urine Color [place] Urine Appearance Cloudy Urine pH 5.0 Ur Specific [place] 1.017 Urine Protein >=500 Urine Glucose (UA) Negative Urine Ketones Negative Urine Blood Small Urine Nitrate Negative Urine Bilirubin Negative Urine Urobilinogen 2.0 H Urine Leukocytes Moderate H Urine RBC 4 Urine WBC 50 Urine WBC Clumps Many Ur Squamous Epith Cells Occasional Urine Bacteria Many Urine Mucus Occasional Ur Culture Indicated? Results to follow Urine Myoglobin Negative 12/28/16 12/28/16 12/28/16 12:57 12:57 12:57 WBC RBC Hgb Hct MCV MCH MCHC RDW Plt Count MPV Neut % (Auto) Lymph % (Auto) [place] % (Auto) Eos % (Auto) Baso % (Auto) Neut # (Auto) Lymph # (Auto) [place] # (Auto) Eos # (Auto) Baso # (Auto) Immature Gran % Nucleated RBC % Immature Gran # Nucleated RBCs # INR PT Patient/Control Mix Sodium 140 Potassium 4.0 Chloride 106 Carbon Dioxide 26 Anion Gap 12.0 BUN 30 H Creatinine 1.30 H GFR Calculation 48 BUN/Creatinine Ratio 23.00 H Glucose 174 H POC Glucose Hemoglobin A1c Calculated Osmolality 288.4 Lactic Acid Calcium 9.1 Magnesium 1.8 Total Bilirubin AST ALT Alkaline Phosphatase Total Creatine Kinase 166 CK-MB (CK-2) 2.3 Troponin I 0.059 H B-Natriuretic Peptide 2595 H Total Protein Albumin Globulin Albumin/Globulin Ratio Amylase 26 Lipase 72.0 L Urine Color Urine Appearance Urine pH Ur Specific [place] Urine Protein Urine Glucose (UA) Urine Ketones Urine Blood Urine Nitrate Urine Bilirubin Urine Urobilinogen Urine Leukocytes Urine RBC Urine WBC Urine WBC Clumps Ur Squamous Epith Cells Urine Bacteria Urine Mucus Ur Culture Indicated? Urine Myoglobin 12/28/16 12/28/16 12/28/16 12:57 12:57 12:57 WBC RBC Hgb Hct MCV MCH MCHC RDW Plt Count MPV Neut % (Auto) Lymph % (Auto) [place] % (Auto) Eos % (Auto) Baso % (Auto) Neut # (Auto) Lymph # (Auto) [place] # (Auto) Eos # (Auto) Baso # (Auto) Immature Gran % Nucleated RBC % Immature Gran # Nucleated RBCs # INR PT Patient/Control Mix Sodium 140 Potassium 4.4 Chloride 105 Carbon Dioxide 25 Anion Gap 14.4 BUN 31 H Creatinine 1.20 H GFR Calculation 53 BUN/Creatinine Ratio 25.00 H Glucose 173 H POC Glucose Hemoglobin A1c 6.5 H Calculated Osmolality 289.4 Lactic Acid 2.0 Calcium 9.1 Magnesium Total Bilirubin 1.90 H AST 23 ALT 22 Alkaline Phosphatase 98 Total Creatine Kinase CK-MB (CK-2) Troponin I B-Natriuretic Peptide Total Protein 7.1 Albumin 3.2 L Globulin 3.9 H Albumin/Globulin Ratio 0.8 L Amylase Lipase Urine Color Urine Appearance Urine pH Ur Specific [place] Urine Protein Urine Glucose (UA) Urine Ketones Urine Blood Urine Nitrate Urine Bilirubin Urine Urobilinogen Urine Leukocytes Urine RBC Urine WBC Urine WBC Clumps Ur Squamous Epith Cells Urine Bacteria Urine Mucus Ur Culture Indicated? Urine Myoglobin 12/28/16 12/28/16 12/28/16 15:31 16:52 17:33 WBC RBC Hgb Hct MCV MCH MCHC RDW Plt Count MPV Neut % (Auto) Lymph % (Auto) [place] % (Auto) Eos % (Auto) Baso % (Auto) Neut # (Auto) Lymph # (Auto) [place] # (Auto) Eos # (Auto) Baso # (Auto) Immature Gran % Nucleated RBC % Immature Gran # Nucleated RBCs # INR PT Patient/Control Mix Sodium Potassium Chloride Carbon Dioxide Anion Gap BUN Creatinine GFR Calculation BUN/Creatinine Ratio Glucose POC Glucose 139 H 137 H Hemoglobin A1c Calculated Osmolality Lactic Acid Calcium Magnesium Total Bilirubin AST ALT Alkaline Phosphatase Total Creatine Kinase CK-MB (CK-2) Troponin I 0.063 H B-Natriuretic Peptide Total Protein Albumin Globulin Albumin/Globulin Ratio Amylase Lipase Urine Color Urine Appearance Urine pH Ur Specific [place] Urine Protein Urine Glucose (UA) Urine Ketones Urine Blood Urine Nitrate Urine Bilirubin Urine Urobilinogen Urine Leukocytes Urine RBC Urine WBC Urine WBC Clumps Ur Squamous Epith Cells Urine Bacteria Urine Mucus Ur Culture Indicated? Urine Myoglobin 12/28/16 12/28/16 12/28/16 17:40 22:04 23:23 WBC RBC Hgb Hct MCV MCH MCHC RDW Plt Count MPV Neut % (Auto) Lymph % (Auto) [place] % (Auto) Eos % (Auto) Baso % (Auto) Neut # (Auto) Lymph # (Auto) [place] # (Auto) Eos # (Auto) Baso # (Auto) Immature Gran % Nucleated RBC % Immature Gran # Nucleated RBCs # INR 1.3 PT Patient/Control Mix 14.4 Sodium Potassium Chloride Carbon Dioxide Anion Gap BUN Creatinine GFR Calculation BUN/Creatinine Ratio Glucose POC Glucose 179 H Hemoglobin A1c Calculated Osmolality Lactic Acid Calcium Magnesium Total Bilirubin AST ALT Alkaline Phosphatase Total Creatine Kinase CK-MB (CK-2) Troponin I 0.062 H B-Natriuretic Peptide Total Protein Albumin Globulin Albumin/Globulin Ratio Amylase Lipase Urine Color Urine Appearance Urine pH Ur Specific [place] Urine Protein Urine Glucose (UA) Urine Ketones Urine Blood Urine Nitrate Urine Bilirubin Urine Urobilinogen Urine Leukocytes Urine RBC Urine WBC Urine WBC Clumps Ur Squamous Epith Cells Urine Bacteria Urine Mucus Ur Culture Indicated? Urine Myoglobin 12/29/16 12/29/16 12/29/16 04:20 04:20 04:21 WBC 8.2 RBC 4.71 Hgb 13.4 D Hct 42.0 MCV 89.2 MCH 29 MCHC 31.9 L RDW 17.3 Plt Count 154 D MPV 10.6 Neut % (Auto) 76.3 H Lymph % (Auto) 11.3 L [place] % (Auto) 8.2 Eos % (Auto) 2.8 Baso % (Auto) 1.0 H Neut # (Auto) 6.2 Lymph # (Auto) 0.9 L [place] # (Auto) 0.7 Eos # (Auto) 0.2 Baso # (Auto) 0.1 Immature Gran % 0.4 Nucleated RBC % 0.0 Immature Gran # 0.03 Nucleated RBCs # 0.00 INR PT Patient/Control Mix Sodium 146 H Potassium 3.8 Chloride 111 H Carbon Dioxide 26 Anion Gap 12.8 BUN 29 H Creatinine 0.90 GFR Calculation 75 BUN/Creatinine Ratio 32.00 H Glucose 104 POC Glucose Hemoglobin A1c Calculated Osmolality 295.6 Lactic Acid Calcium 8.5 Magnesium 1.5 L Total Bilirubin 2.10 H AST 14 ALT 11 L Alkaline Phosphatase 69 Total Creatine Kinase CK-MB (CK-2) Troponin I 0.052 H B-Natriuretic Peptide Total Protein 5.0 L Albumin 2.3 L Globulin 2.7 Albumin/Globulin Ratio 0.8 L Amylase Lipase Urine Color Urine Appearance Urine pH Ur Specific [place] Urine Protein Urine Glucose (UA) Urine Ketones Urine Blood Urine Nitrate Urine Bilirubin Urine Urobilinogen Urine Leukocytes Urine RBC Urine WBC Urine WBC Clumps Ur Squamous Epith Cells Urine Bacteria Urine Mucus Ur Culture Indicated? Urine Myoglobin 12/29/16 12/29/16 04:21 07:39 WBC RBC Hgb Hct MCV MCH MCHC RDW Plt Count MPV Neut % (Auto) Lymph % (Auto) [place] % (Auto) Eos % (Auto) Baso % (Auto) Neut # (Auto) Lymph # (Auto) [place] # (Auto) Eos # (Auto) Baso # (Auto) Immature Gran % Nucleated RBC % Immature Gran # Nucleated RBCs # INR PT Patient/Control Mix Sodium Potassium Chloride Carbon Dioxide Anion Gap BUN Creatinine GFR Calculation BUN/Creatinine Ratio Glucose POC Glucose 97 Hemoglobin A1c Calculated Osmolality Lactic Acid Calcium Magnesium Total Bilirubin AST ALT Alkaline Phosphatase Total Creatine Kinase CK-MB (CK-2) Troponin I B-Natriuretic Peptide 2193 H Total Protein Albumin Globulin Albumin/Globulin Ratio Amylase Lipase Urine Color Urine Appearance Urine pH Ur Specific [place] Urine Protein Urine Glucose (UA) Urine Ketones Urine Blood Urine Nitrate Urine Bilirubin Urine Urobilinogen Urine Leukocytes Urine RBC Urine WBC Urine WBC Clumps Ur Squamous Epith Cells Urine Bacteria Urine Mucus Ur Culture Indicated? Urine Myoglobin - Diagnostic Findings Procedure: Chest x-ray: report reviewed by me - EKG EKG results: interpreted by me EKG shows: atrial fibrillation Quality Measures - VTE Contraindication to Mechanical VTE Prophylaxis: Local Inflammation
--- NOTE | 2016-12-29 11:56 | ECHO Report ---
Jodie Dawson Exam Date: 12/29/2016 09:56 Referring Physician: Technologist: Gaviota Keys RDCS Age: 71 Ht (in): 66 Wt (lb): 200 Gender: F Exam Location: [facility] Echo Indications: Heart failure, unspecified, Weakness, LE edema, Essential (primary) hypertension, NIDDM, Atrial fibrillation, Cellulitis, CAD with previous CABG BP: 124 / 84 HR: 88 Rhythm: Atrial fibrillation Technical Quality: Fair IMPRESSIONS Severely reduced LV systolic function with global hypokinesis and abnormal septal motion, ejection fraction estimated 20%. Diastolic parameters cannot be well assessed due to underlying arrhythmia. Mild concentric left ventricular hypertrophy. Mild right ventricular dilation. Biatrial enlargement. Mild to moderate mitral and pulmonic regurgitation. Moderate to severe tricuspid regurgitation. Pulmonary hypertension with pulmonary pressures estimated at 62 mmHg. MEASUREMENTS (Male / Female) Normal Values 2D ECHO LV Diastolic Diameter PLAX 5.4 cm 4.2 - 5.9 / 3.9 - 5.3 cm LV Systolic Diameter PLAX 4.4 cm LV Fractional Shortening PLAX 18.5 % IVS Diastolic Thickness 1.4 cm 0.6 - 1.0 / 0.6 - 0.9 cm LVPW Diastolic Thickness 1.4 cm 0.6 - 1.0 / 0.6 - 0.9 cm RV Internal Dim ED PLAX 4.1 cm Aortic Root Diameter 3.2 cm LA Systolic Diameter LX 6.2 cm 3.0 - 4.0 / 2.7 - 3.8 cm DOPPLER TR Peak Velocity 360.0 cm/s TR Peak Gradient 51.8 mmHg FINDINGS Left Ventricle Mildly increased left ventricular cavity size. Mild left ventricular hypertrophy. Left ventricular ejection fraction is estimated at 20 %. Right Ventricle The right ventricle is mildly dilated. Right Atrium Moderately increased right atrial size. Left Atrium Severely increased left atrial size. Mitral Valve Mildly thickened mitral valve. Mild mitral annular calcification. Mild- moderate mitral valve regurgitation. Aortic Valve Aortic valve sclerosis without stenosis or regurgitation. Tricuspid Valve Morphologically normal tricuspid valve. [id number] tricuspid valve regurgitation. Pulmonary artery pressures estimated at 62 mmHg. Pulmonic Valve Morphologically normal pulmonic valve. [id number] pulmonary valve regurgitation. Pericardium Normal pericardium without effusion. Aorta Normal ascending aorta dimension. Sari Lorenzo MD (Electronically Signed) Final Date: 29 December 2016 11:55
--- NOTE | 2016-12-29 13:31 | Ultrasound Report ---
History: Lower extremity edema Date: 12/29/2016 Study: Bilateral lower extremity color-flow venous Doppler study Comparison exam: July 09, 2015 study Color Doppler, wave form analysis, and compression analysis of the deep veins of both lower extremities from the common femoral vein level through the popliteal vein level shows that the veins are readily compressible. There is no abnormal intraluminal material to suggest thrombus. Waveform analysis is unremarkable. Ultrasound images were captured and archived Impression: No evidence of acute deep venous thrombosis Incidental note is made of a 41 x 12 x 32 mm Araiza's cyst on the left. There is nonspecific edema of the subcutaneous tissues of the lower extremities PROCEDURE INTERPRETED AT [facility] DEPARTMENT OF RADIOLOGY Final Report Signed by: Dr. Edith Vásquez
[2016-12-29] MEDS ORDERED: MAGNESIUM SULF RIDER 4 GM in PREMIX 1 EACH IV ONE (18:24)
[2016-12-29] MEDS: ATORVASTATIN 40 MG TABLET PO SCH (22:27)
[2016-12-29] MEDS: PHENYTOIN ER 100 MG CAPSULE PO SCH (22:27)
[2016-12-30] MEDS: FUROSEMIDE 40 MG/4 ML VIAL IV SCH ×2 (03:45→16:30)
[2016-12-30] MEDS: CEFTAROLINE 600 MG in SODIUM CHLORIDE 0.9% 100 ML IV SCH ×2 (06:02→20:41)
[2016-12-30 06:31] LABS: Calcium 7.9 MG/DL (8.5-10.1); Osmolality,Calculated 287.4 MOS/KG (273-304); Potassium 3.9 MMOL/L (3.5-5.1)
--- NOTE | 2016-12-30 07:54 | XRay Report ---
Exam: XR chest 1V portable Date: 12/30/2016 4:00 AM Indication: Pulmonary edema Comparison: 12/28/2016 Technical: AP portable Findings: Cardiomegaly is present with previous sternotomy. Low volume effusions and shunt vascularity with suggestion of some consolidation in the right midlung zone present. External cardiac leads are present. No pneumothorax. Bony structures reveal degenerative changes. ASVD is present. Impression: 1. Cardiomegaly with component of the CHF some underlying atelectatic change or infiltrate cannot be totally excluded in the right midlung zone. 2. Previous sternotomy PROCEDURE INTERPRETED AT [facility] DEPARTMENT OF RADIOLOGY Final Report Signed by: Dr. Shawn Cash
[2016-12-30] MEDS: INSULIN LISPRO 100 UNIT/ML SUBCUT SCH ×3 (10:33→20:42)
--- NOTE | 2016-12-30 10:35 | Case Mgmt Physician Query Form ---
TB Signs and Symptoms Screening ([place]) INSTRUCTIONS: To be completed annually on residents/staff with a significant Tuberculin Skin Test (TST) upon admission/hire or a prior significant TST. To be completed on all staff at hire. Please respond to each listed symptom with an (X) in either the "YES" or "NO" box. Do you currently have any of the following symptoms: YES NO ( ) (x ) A cough If yes, is it: ( ) Productive ( ) Non- productive ( ) (x ) Hemoptysis (spitting up blood) ( ) (x ) Chest pains ( ) (x ) Weight Loss ( ) ( x) Fever ( ) ( x) Night Sweats ( x) ( ) Weakness ( ) (x ) Loss of Appetite ( ) (x ) Difficulty Breathing If you answered YES" to any of the above questions, how long have symptoms been present? Patient is weak due to deconditioning for several week. Comments: YONAS
[2016-12-30] MEDS: ASPIRIN EC 325 MG TABLET PO SCH (10:37)
[2016-12-30] MEDS: LISINOPRIL 5 MG TABLET PO SCH (10:38)
[2016-12-30] MEDS: CYANOCOBALAMIN 500 MCG TABLET PO SCH (10:38)
[2016-12-30] MEDS: DABIGATRAN 150 MG CAPSULE PO SCH (10:38)
[2016-12-30] MEDS: MECLIZINE 25 MG TABLET PO PRN (10:38)
[2016-12-30] MEDS: FERROUS SULFATE 325 MG TABLET PO SCH (10:38)
[2016-12-30] MEDS: GLIMEPIRIDE 4 MG TABLET PO SCH ×2 (10:39→20:39)
[2016-12-30] MEDS: MAGNESIUM OXIDE 400 MG TABLET PO SCH (10:39)
[2016-12-30] MEDS: PANTOPRAZOLE 40 MG TABLET PO SCH (10:40)
--- NOTE | 2016-12-30 13:21 | Cardiology Progress Note ---
Dudley Lemons Vanessa RN, am scribing for, and in the presence of, Naseem Robert MD 13:19. Assessment and Plan - Time spent with patient Time spent with patient: Greater than 30 minutes (1) Systolic CHF, acute on chronic Status: Chronic Assessment and plan: 71 year old with PMHx of CAD, ischemic cardiomyopathy, congestive heart failure , persistent atrial fibrillation, hypertension, hyperlipidemia, and diabetes presents with generalized weakness and volume overload. Also being treated for cellulitis of bilateral lower extremities and has UTI. She has been followed by Dr. Ferrer in the past, but she has not seen him since 2015 per review of clinic records. BNP elevated at 2595 on admission, since decreased to 2193. 1. CONGESTIVE HEART FAILURE - This is acute on chronic, secondary to systolic dysfunction with severely reduced ejection fraction of 20%, NYHA class III to IV. Echocardiogram this admission with moderate to severe TR and PA pressure 62 mmHg, mild to moderate mitral and pulmonic regurgitation, she was severely reduced LV systolic function and global hypokinesis. Continue diuresis and afterload reduction. 2. PERSISTENT, CHRONIC ATRIAL FIBRILLATION -appears to have overall well controlled ventricular response. Transient bradycardia She was not anticoagulated for stroke prevention prior to admission, and as she does not have any contraindications, patient has been started on aspirin and Pradaxa. 3. BILATERAL LOWER EXTREMITY CELLULITIS AND EDEMA - bilateral lower extremity edema can be multifactorial, and we will continue diuresis. Treatment of cellulitis has been deferred to hospital medicine. 4. CAD -previous history of CABG. Patient has not had any anginal complaint. 5. HYPERTENSION - chronic, and pressures have been overall well controlled. Continue current regimen, and adjust as needed. 6. DIABETES - Overall stable. Defer plan of care to hospital medicine. 7. HYPERLIPIDEMIA - Statin has been continued. 8. UTI - Urine cultures positive for gram negative rods. Treatment for UTI is being managed by hospital medicine. 9. HYPOMAGNESEMIA - Mg+ level 1.5 yesterday. Agree with MagOx supplement. Recheck magnesium level this morning after repletion with MagSulfate 4 gm IV yesterday evening. 10: Bradycardia. Will decrease the Cardizem to 30 mg 4 times daily and also reduce the carvedilol to 3.125 mg p.o. twice daily. Will also have hold parameters for heart rate less than 75 and less than 60, respectively. 11: Hypoalbuminemia-probably is contributing to her edema and her heart failure 12: Suspected sleep apnea --will discussed with her tomorrow Current Visit: Yes (2) Bilateral lower leg cellulitis Status: Acute Assessment and plan: SEE PLAN OF CARE LISTED ABOVE. Current Visit: Yes (3) Generalized weakness Status: Acute Assessment and plan: SEE PLAN OF CARE LISTED ABOVE. Current Visit: Yes (4) Physical deconditioning Status: Chronic Assessment and plan: SEE PLAN OF CARE LISTED ABOVE. Current Visit: Yes (5) Type 2 diabetes mellitus Status: Chronic Assessment and plan: SEE PLAN OF CARE LISTED ABOVE. Current Visit: Yes (6) UTI (urinary tract infection) Status: Acute Assessment and plan: SEE PLAN OF CARE LISTED ABOVE. Current Visit: Yes (7) Coronary artery disease Status: Chronic Assessment and plan: SEE PLAN OF CARE LISTED ABOVE. Current Visit: Yes (8) Hyperlipidemia Status: Chronic Assessment and plan: SEE PLAN OF CARE LISTED ABOVE. Current Visit: Yes (9) Hypertension Status: Chronic Assessment and plan: SEE PLAN OF CARE LISTED ABOVE. Current Visit: Yes (10) Atrial fibrillation Status: Chronic Assessment and plan: SEE PLAN OF CARE LISTED ABOVE. Current Visit: No Qualifiers: Atrial fibrillation type: chronic Qualified Code(s): I48.2 - Chronic atrial fibrillation (11) Hx of CABG Status: Chronic Assessment and plan: SEE PLAN OF CARE LISTED ABOVE. Current Visit: Yes (12) Hypoalbuminemia Status: Acute Current Visit: Yes (13) Suspected sleep apnea Status: Acute Current Visit: Yes (14) Bradycardia Status: Acute Current Visit: Yes Cardiology - PN: Subj Interval history: PRIMARY STEWARD/STEWARDESS SECOND: DR. FERRER SUMMARY: Ms. Dawson is a 71 year old female with risk factors significant for: Hypertension, hyperlipidemia, diabetes, personal history of CAD past medical history includes chronic persistent atrial fib, CVA 2, ischemic cardiomyopathy with congestive heart failure. Patient has had previous coronary artery bypass grafting in February 2003 with CERRATO to LAD, SVG to ramus intermedius, and SVG to RCA. Patient was admitted to the hospital on December 28 with generalized weakness, bilateral lower extremity edema with cellulitis, and fluid volume overload. Echocardiogram obtained on December 28 with mild LVH, severely reduced systolic function with EF of 20%, moderate to severely increased atria size, mild to moderate MR, moderate to severe TR with a PA pressure of 62 mmHg. Cardiology was consulted by hospital medicine to see patient for further treatment of acute on chronic systolic congestive heart failure, NYHA class III to IV, secondary to severely reduced EF of 20%. December: Ms. Dawson is awake and alert this morning, and she is not in any acute distress. She is not having any chest pain shortness of breath. Reports improvement of bilateral lower extremity edema but continues to feel overall weak. Atrial fib with ventricular response overall well controlled, pulse rate 60s and 70s. Patient noted to have transient bradycardia with pulse rate 40 bpm earlier this morning while at rest, and she was asymptomatic. Also noted NSVT yesterday evening, and patient received mag sulfate 4 g IV for hypomagnesemia 1.5. PO Mag Ox continued. Systolic BP ranging 120-150 mmHg. Potassium 3.9 this morning. Creatinine with some increase, but overall stable at 1.2. Continues to diurese well with IV Lasix. Exam (Progress Note) - Constitutional Vitals: Period Temp Pulse Resp BP Sys/Funk Pulse Ox Last 24 Hr 97.0 F-98.5 F 56-79 18-20 109-151/58-89 92-98 Exam: General appearance: Obese, no acute distress - Head Head exam: Present: Hirsutism, normocephalic, atraumatic. Absent: hematoma, laceration - Eye Eye exam: Present: EOMI. Absent: conjunctival injection, nystagmus, periorbital swelling, scleral icterus, laceration to eyelids Pupils: Absent: constricted, dilated, fixed, irregular, unequal - ENT ENT exam: Present: normal exam, normal external ear exam - Neck Neck exam: Present: overall normal inspection. Absent: lymphadenopathy, meningismus, tenderness, thyromegaly - Respiratory Respiratory exam: Present: Exam limited by habitus, overall clear to auscultation bilaterally. Absent: accessory muscle use, chest wall tenderness - Cardiovascular Cardiovascular exam: Present: tones in general distant but overall irregularly irregular rate and rhythm, systolic murmur. Absent: carotid bruit, gallop, JVD , rubs - GI/Abdominal GI/Abdominal exam: Present: normal bowel sounds, soft, obese. Absent: distended , firm, guarding, hernia, mass, tenderness, rebound, - Extremities Exam Extremities exam: Present: There is 3+ pitting bilateral lower extremity edema with and skin wrinkles consistent with findings of decreasing edema. Skin is thickened and tense consistent with chronic edema. Bilateral erythema and some bullae. - Back Exam Back exam: Present: normal inspection. Absent: muscle spasm, vertebral tenderness - Neurological Exam Neurological exam: Present: alert, oriented X3, grossly intact without resting tremor. - Psychiatric Psychiatric exam: Present: normal affect, normal mood. Patient does not seem anxious or depressed. - Skin Skin exam: Present: Erythema and bulla on the bilateral lower extremities, warm , dry, intact. Absent: cyanosis, diaphoretic, urticaria - Cardiovascular Cardiovascular exam: Present: systolic murmur (2/6 systolic murmur along left lower sternal border.) Result/EKG - Labs CBC & BMP: 12/29/16 04:21 12/30/16 05:21 Lab Results: I have reviewed the past 24 hour labs Labs: Laboratory Results - last 24 hr 12/29/16 12/29/16 12/29/16 11:41 15:45 20:49 Sodium Potassium Chloride Carbon Dioxide Anion Gap BUN Creatinine GFR Calculation BUN/Creatinine Ratio Glucose POC Glucose 108 H 152 H 125 H Calculated Osmolality Calcium 12/30/16 12/30/16 05:21 07:24 Sodium 140 Potassium 3.9 Chloride 103 Carbon Dioxide 28 Anion Gap 12.9 BUN 30 H Creatinine 1.20 H GFR Calculation 53 BUN/Creatinine Ratio 25.00 H Glucose 159 H POC Glucose 166 H Calculated Osmolality 287.4 Calcium 7.9 L - Diagnostic Findings Procedure: Chest x-ray: image reviewed by me, report reviewed by me (12/30/16: Right midlung zone consolidation, cardiomegaly with mild CHF) - EKG EKG results: interpreted by me, no acute changes EKG shows: atrial fibrillation (ventricular response 60s-70s. transient bradycardia with pulse 40 bpm overnight. 22 beat run narrow complex NSVT yesterday evening per cardiac monitor technician strips.) Quality Measures - VTE Contraindication to Mechanical VTE Prophylaxis: Local Inflammation Yesica Lemons Dale, MD, personally performed the services described in this documentation, ascribed by Rama Buckner RN in my presence, and it is both accurate and complete 320 .
--- NOTE | 2016-12-30 15:56 | Hospitalist Progress Note ---
Assessment and Plan (1) Bilateral lower leg cellulitis Status: Acute Assessment and plan: - Continue IV Antibiotics - will monitor Current Visit: Yes (2) Bradycardia Status: Acute Assessment and plan: - on telemetry - Cardiology following - will monitor Current Visit: Yes (3) UTI (urinary tract infection) Status: Acute Assessment and plan: - Urine culture grew E. Coli - IV antibiotics - will monitor Current Visit: Yes (4) Systolic CHF, acute on chronic Status: Chronic Assessment and plan: - telemetry - IV Diuresis - Monitor I's and O's - will monitor Current Visit: Yes Hospitalist: Subjective Interval history: Ms. Dawson was admitted for acute on chronic systolic CHF, bilateral cellulitis, and UTI. Patient reports feeling better but still does not feel well. Exam - Constitutional Vitals: Period Temp Pulse Resp BP Sys/Funk Pulse Ox Last 24 Hr 97.9 F-98.5 F 47-79 18-20 118-151/58-72 92-97 General appearance: morbidly obese - Head Head exam: Present: normal inspection - Eye Eye exam: Present: EOMI - Respiratory Respiratory exam: Present: clear to auscultation bilaterally - Cardiovascular Cardiovascular exam: Present: bradycardia - GI/Abdominal GI/Abdominal exam: Present: normal bowel sounds, soft - Expanded Left Lower Lower leg exam: Present: swelling (pitting edema with blisters), erythema - Neurological Exam Neurological exam: Present: alert, oriented X3 - Psychiatric Psychiatric exam: Present: normal affect, normal mood Results - Labs CBC & BMP: 12/29/16 04:21 12/30/16 05:21 Quality Measures - VTE Contraindication to Mechanical VTE Prophylaxis: Local Inflammation
[2016-12-30] MEDS: COLLAGENASE OINT 30 GM TUBE TOP SCH (18:00)
[2016-12-30] MEDS: DESITIN 4OZ/NYSTATIN 15 GRAM MIXTURE PASTE TOP SCH ×2 (18:00→20:43)
[2016-12-30] MEDS: PHENYTOIN ER 100 MG CAPSULE PO SCH (20:40)
[2016-12-30] MEDS: ATORVASTATIN 40 MG TABLET PO SCH (20:40)
[2016-12-30] MEDS: DILTIAZEM 30 MG TABLET PO SCH ×2 (20:44→22:49)
[2016-12-31] MEDS: DILTIAZEM 30 MG TABLET PO SCH ×4 (03:39→21:32)
[2016-12-31] MEDS: INSULIN LISPRO 100 UNIT/ML SUBCUT SCH ×5 (05:13→21:35)
[2016-12-31] MEDS: CARVEDILOL 3.125 MG TABLET PO SCH ×3 (05:14→18:20)
[2016-12-31] MEDS: FUROSEMIDE 40 MG/4 ML VIAL IV SCH ×2 (05:20→15:07)
[2016-12-31 06:19] LABS: Basophils # 0.1 10*3/uL (0.0-0.2); Basophils % 0.8 % (0.0-0.8); Eosinophils # 0.2 10*3/uL (0.0-0.87); Eosinophils % 2.7 % (0.00-10.9); Immature Granulocytes % 0.5 %; Immature Granulocytes Absolute 0.04 #; Lymphocytes # 0.8 10*3/uL (1.4-4.0); Lymphocytes % 9.3 % (21.3-54.2); Mean Corpuscular HGB Conc 31.8 GM/DL (32-36); Mean Corpuscular Hemoglobin 29 PG (27-34); Mean Corpuscular Volume 91.1 FL (87-102); Monocytes # 0.7 10*3/uL (0.11-0.8); Monocytes % 8.8 % (1.7-12.7); Neutrophils # 6.6 10*3/uL (1.4-7.4); Neutrophils % 77.9 % (38.7-73.9); Platelet Count 157 T/CUMM (130-400); Red Blood Count 4.83 MC/CUMM (3.8-5.5); Red Cell Distribution Width 17.1 % (9.3-17.3); White Blood Count 8.4 T/CUMM (4-12)
[2016-12-31 06:48] LABS: Calcium 8.6 MG/DL (8.5-10.1); Magnesium 1.9 MG/DL (1.8-2.4); Osmolality,Calculated 292.8 MOS/KG (273-304); Potassium 4.3 MMOL/L (3.5-5.1)
--- NOTE | 2016-12-31 09:12 | Hospitalist Progress Note ---
Assessment and Plan (1) Bilateral lower leg cellulitis Status: Acute Assessment and plan: - Continue IV Abx (changed from Teflaro to Rocephin and Doxycycline because Rocephin can cover urine as well) - will monitor Current Visit: Yes (2) Bradycardia Status: Acute Assessment and plan: - on telemetry - Cardiology following - patient also has atrial fibrillation - medication adjustments per cards - patient placed on Aspirin and Pradaxa for atrial fibrillation - will monitor Current Visit: Yes (3) UTI (urinary tract infection) Status: Acute Assessment and plan: - Urine culture grew E. Coli - IV rocephin (changed from Teflaro) - will monitor Current Visit: Yes (4) Systolic CHF, acute on chronic Status: Chronic Assessment and plan: - telemetry - IV Diuresis - Monitor I's and O's - will monitor Current Visit: Yes (5) Generalized weakness Status: Acute Assessment and plan: - PT - Patient would like to go to [facility] Current Visit: Yes Hospitalist: Subjective Interval history: Ms. Dawson was admitted for acute on chronic systolic CHF, bilateral cellulitis, and UTI. Patient reports feeling better. Patient decided that she wanted to go to [facility] because she is very weak. Edema improved. Exam - Constitutional Vitals: Period Temp Pulse Resp BP Sys/Funk Pulse Ox Last 24 Hr 96.9 F-98.3 F 47-77 16-20 110-152/62-93 90-96 General appearance: no acute distress, morbidly obese - Head Head exam: Present: normal inspection - Eye Eye exam: Present: EOMI - Respiratory Respiratory exam: Present: clear to auscultation bilaterally - Cardiovascular Cardiovascular exam: Present: bradycardia - GI/Abdominal GI/Abdominal exam: Present: normal bowel sounds, soft. Absent: distended - Extremities Exam Extremities exam: Present: edema (legs are wrapped with a pressor dressing but some edema noted) - Neurological Exam Neurological exam: Present: alert, oriented X3 - Psychiatric Psychiatric exam: Present: normal affect, normal mood Results - Labs CBC & BMP: 12/31/16 05:03 12/31/16 05:03 Quality Measures - VTE Contraindication to Mechanical VTE Prophylaxis: Local Inflammation
[2016-12-31] MEDS: DABIGATRAN 150 MG CAPSULE PO SCH (10:08)
[2016-12-31] MEDS: cefTRIAXone 1,000 MG in SODIUM CHLORIDE 0.9% 100 ML IV SCH (10:08)
[2016-12-31] MEDS: LISINOPRIL 5 MG TABLET PO SCH (10:08)
[2016-12-31] MEDS: FERROUS SULFATE 325 MG TABLET PO SCH (10:08)
[2016-12-31] MEDS: PANTOPRAZOLE 40 MG TABLET PO SCH (10:08)
[2016-12-31] MEDS: CYANOCOBALAMIN 500 MCG TABLET PO SCH (10:08)
[2016-12-31] MEDS: DOXYCYCLINE HYCLATE 100 MG CAPSULE PO SCH ×2 (10:09→21:34)
[2016-12-31] MEDS: MAGNESIUM OXIDE 400 MG TABLET PO SCH (10:09)
[2016-12-31] MEDS: GLIMEPIRIDE 4 MG TABLET PO SCH ×2 (10:09→21:32)
[2016-12-31] MEDS: ASPIRIN EC 325 MG TABLET PO SCH (10:09)
[2016-12-31] MEDS: COLLAGENASE OINT 30 GM TUBE TOP SCH (10:16)
[2016-12-31] MEDS: DESITIN 4OZ/NYSTATIN 15 GRAM MIXTURE PASTE TOP SCH ×2 (10:16→21:35)
--- NOTE | 2016-12-31 11:04 | Cardiology Progress Note ---
Dudley Lemons Vanessa, RN, am scribing for, and in the presence of, Naseem Robert MD 11:01. Assessment and Plan - Time spent with patient Time spent with patient: Greater than 30 minutes (1) Systolic CHF, acute on chronic Status: Chronic Assessment and plan: 71 year old with PMHx of CAD, ischemic cardiomyopathy, congestive heart failure , persistent atrial fibrillation, hypertension, hyperlipidemia, and diabetes presents with generalized weakness and volume overload. Also being treated for cellulitis of bilateral lower extremities and has UTI. She has been followed by Dr. Ferrer in the past, but she has not seen him since 2015 per review of clinic records. BNP elevated at 2595 on admission, since decreased to 2193. 1. CONGESTIVE HEART FAILURE - This is acute on chronic, secondary to systolic dysfunction with severely reduced ejection fraction of 20%, NYHA class III to IV. Echocardiogram this admission with moderate to severe TR and PA pressure 62 mmHg, mild to moderate mitral and pulmonic regurgitation, she was severely reduced LV systolic function and global hypokinesis. Continue diuresis and afterload reduction. 2. PERSISTENT, CHRONIC ATRIAL FIBRILLATION -appears to have overall well controlled ventricular response. Has had some atrial flutter with slow ventricular response around 40. Patient not anticoagulated for stroke prevention prior to admission, and as she does not have any contraindications, patient has been started on aspirin and Pradaxa. 3. BILATERAL LOWER EXTREMITY CELLULITIS AND EDEMA - Some slight improvement today ofbilateral lower extremity edema which is multifactorial. Continue diuresis. Treatment of cellulitis has been deferred to hospital medicine. 4. CAD -previous history of CABG. Patient has not had any anginal complaint. 5. HYPERTENSION - chronic, and pressures have been overall well controlled. Continue current regimen, and adjust as needed. 6. DIABETES - Overall stable. Defer plan of care to hospital medicine. 7. HYPERLIPIDEMIA - Statin has been continued. 8. UTI - Urine cultures positive for gram negative rods. Treatment for UTI is being managed by hospital medicine. 9. HYPOMAGNESEMIA -resolved. Continue PO supplement. Monitor electrolytes daily and optimize. 10. BRADYCARDIA - Med dosages decreased yesterday to Cardizem 30 mg by mouth 4 times daily and carvedilol to 3.125 mg by mouth twice daily. Hold parameters set for pulse rate less than 75 and 60 respectively at time of dose. She has not received these due to bradycardia. 11. HYPOALBUMINEMIA - Most likely a contributing factor to her edema and heart failure also. 12. SUSPECTED SLEEP APNEA - Less edema, particularly with the wraps her legs Atrial fib ventricular response is controlled with adjustment of medications Continue to monitor heart rate Okay with me for her going to swing bed when the time for that comes about. Creatinine is increased slightly. An order was written to hold furosemide if creatinine is greater than 2.0. Will watch creatinine carefully. Current Visit: Yes (2) Bilateral lower leg cellulitis Status: Acute Assessment and plan: SEE PLAN OF CARE LISTED ABOVE. Current Visit: Yes (3) Generalized weakness Status: Acute Assessment and plan: SEE PLAN OF CARE LISTED ABOVE. Current Visit: Yes (4) Physical deconditioning Status: Chronic Assessment and plan: SEE PLAN OF CARE LISTED ABOVE. Current Visit: Yes (5) Type 2 diabetes mellitus Status: Chronic Assessment and plan: SEE PLAN OF CARE LISTED ABOVE. Current Visit: Yes (6) UTI (urinary tract infection) Status: Acute Assessment and plan: SEE PLAN OF CARE LISTED ABOVE. Current Visit: Yes (7) Coronary artery disease Status: Chronic Assessment and plan: SEE PLAN OF CARE LISTED ABOVE. Current Visit: Yes (8) Hyperlipidemia Status: Chronic Assessment and plan: SEE PLAN OF CARE LISTED ABOVE. Current Visit: Yes (9) Hypertension Status: Chronic Assessment and plan: SEE PLAN OF CARE LISTED ABOVE. Current Visit: Yes (10) Atrial fibrillation Status: Chronic Assessment and plan: SEE PLAN OF CARE LISTED ABOVE. Current Visit: No Qualifiers: Atrial fibrillation type: chronic Qualified Code(s): I48.2 - Chronic atrial fibrillation (11) Hx of CABG Status: Chronic Assessment and plan: SEE PLAN OF CARE LISTED ABOVE. Current Visit: Yes (12) Bradycardia Status: Acute Assessment and plan: SEE PLAN OF CARE LISTED ABOVE. Current Visit: Yes (13) Hypoalbuminemia Status: Acute Assessment and plan: SEE PLAN OF CARE LISTED ABOVE. Current Visit: Yes (14) Suspected sleep apnea Status: Acute Assessment and plan: SEE PLAN OF CARE LISTED ABOVE. Current Visit: Yes Cardiology - PN: Subj Interval history: PRIMARY PEDIATRIC INTENSIVE PHYSICIAN: DR. FERRER SUMMARY: Ms. Dawson is a 71 year old female with risk factors significant for: Hypertension, hyperlipidemia, diabetes, personal history of CAD past medical history includes chronic persistent atrial fib, CVA 2, ischemic cardiomyopathy with congestive heart failure. Patient has had previous coronary artery bypass grafting in February 2003 with CERRATO to LAD, SVG to ramus intermedius, and SVG to RCA. Patient was admitted to the hospital on December 28 with generalized weakness, bilateral lower extremity edema with cellulitis, and fluid volume overload. Echocardiogram obtained on December 28 with mild LVH, severely reduced systolic function with EF of 20%, moderate to severely increased atria size, mild to moderate MR, moderate to severe TR with a PA pressure of 62 mmHg. Cardiology was consulted by hospital medicine to see patient for further treatment of acute on chronic systolic congestive heart failure, NYHA class III to IV, secondary to severely reduced EF of 20%. December: Ms. Dawson is sleeping quietly this morning without acute respiratory distress or other needs noted. Rouses to verbal stimuli, and she is pleasant and appropriate. Denies chest pain, shortness of breath, or other complaint today saying, "No, I am feeling just fine today." Cardiac monitoring reveals atrial fibrillation with pulse rates 60s-70s, and some transient atrial flutter with slow ventricular response in the 40s. Labs reviewed. Potassium is 4.3, and hypomagnesemia resolved with Mg+ 1.9 this morning. Creatinine slightly bumped up today to 1.3 (1.2, 0.9 previously). Cell counts unremarkable. Systolic pressure ranging 115-130 mmHg. Bilateral lower extremities appear to be somewhat less edematous today. Exam (Progress Note) - Constitutional Vitals: Period Temp Pulse Resp BP Sys/Funk Pulse Ox Last 24 Hr 97.0 F-98.3 F 47-77 16-20 110-128/58-70 90-96 Exam: General appearance: Obese, no acute distress - Head Head exam: Present: Hirsutism, normocephalic, atraumatic. Absent: hematoma, laceration - Eye Eye exam: Present: EOMI. Absent: conjunctival injection, nystagmus, periorbital swelling, scleral icterus, laceration to eyelids Pupils: Absent: constricted, dilated, fixed, irregular, unequal - ENT ENT exam: Present: normal exam, normal external ear exam - Neck Neck exam: Present: overall normal inspection. Absent: lymphadenopathy, meningismus, tenderness, thyromegaly - Respiratory Respiratory exam: Present: Exam limited by habitus, overall clear to auscultation bilaterally. Absent: accessory muscle use, chest wall tenderness - Cardiovascular Cardiovascular exam: Present: tones in general distant but overall irregularly irregular rate and rhythm, systolic murmur. Absent: carotid bruit, gallop, JVD , rubs - GI/Abdominal GI/Abdominal exam: Present: normal bowel sounds, soft, obese. Absent: distended , firm, guarding, hernia, mass, tenderness, rebound, - Extremities Exam Extremities exam: Present: There is 3+ pitting bilateral lower extremity edema with and skin wrinkles consistent with findings of decreasing edema. Skin is thickened and tense consistent with chronic edema. Bilateral erythema and some bullae. Bilateral lower extremity with compression dressings intact. - Back Exam Back exam: Present: normal inspection. Absent: muscle spasm, vertebral tenderness - Neurological Exam Neurological exam: Present: alert, oriented X3, grossly intact without resting tremor. - Psychiatric Psychiatric exam: Present: normal affect, normal mood. Patient does not seem anxious or depressed. - Skin Skin exam: Present: Erythema and bulla on the bilateral lower extremities, warm , dry, intact. Absent: cyanosis, diaphoretic, urticaria Result/EKG - Labs CBC & BMP: 12/31/16 05:03 12/31/16 05:03 Lab Results: I have reviewed the past 24 hour labs Labs: Laboratory Results - last 24 hr 12/30/16 12/30/16 12/30/16 05:17 07:24 11:24 WBC RBC Hgb Hct MCV MCH MCHC RDW Plt Count MPV Neut % (Auto) Lymph % (Auto) Reagan % (Auto) Eos % (Auto) Baso % (Auto) Neut # (Auto) Lymph # (Auto) Reagan # (Auto) Eos # (Auto) Baso # (Auto) Immature Gran % Nucleated RBC % Immature Gran # Nucleated RBCs # Sodium Potassium Chloride Carbon Dioxide Anion Gap BUN Creatinine GFR Calculation BUN/Creatinine Ratio Glucose POC Glucose 166 H 194 H Calculated Osmolality Calcium Magnesium 1.9 12/30/16 12/30/16 12/31/16 15:50 20:42 05:03 WBC 8.4 RBC 4.83 Hgb 14.0 Hct 44.0 MCV 91.1 MCH 29 MCHC 31.8 L RDW 17.1 Plt Count 157 MPV 11.0 Neut % (Auto) 77.9 H Lymph % (Auto) 9.3 L Reagan % (Auto) 8.8 Eos % (Auto) 2.7 Baso % (Auto) 0.8 Neut # (Auto) 6.6 Lymph # (Auto) 0.8 L Reagan # (Auto) 0.7 Eos # (Auto) 0.2 Baso # (Auto) 0.1 Immature Gran % 0.5 Nucleated RBC % 0.0 Immature Gran # 0.04 Nucleated RBCs # 0.00 Sodium Potassium Chloride Carbon Dioxide Anion Gap BUN Creatinine GFR Calculation BUN/Creatinine Ratio Glucose POC Glucose 146 H 135 H Calculated Osmolality Calcium Magnesium 12/31/16 05:03 WBC RBC Hgb Hct MCV MCH MCHC RDW Plt Count MPV Neut % (Auto) Lymph % (Auto) Reagan % (Auto) Eos % (Auto) Baso % (Auto) Neut # (Auto) Lymph # (Auto) Reagan # (Auto) Eos # (Auto) Baso # (Auto) Immature Gran % Nucleated RBC % Immature Gran # Nucleated RBCs # Sodium 144 Potassium 4.3 Chloride 103 Carbon Dioxide 33 H Anion Gap 12.3 BUN 34 H Creatinine 1.30 H GFR Calculation 48 BUN/Creatinine Ratio 26.00 H Glucose 82 POC Glucose Calculated Osmolality 292.8 Calcium 8.6 Magnesium 1.9 - EKG EKG results: interpreted by me, no acute changes EKG shows: atrial fibrillation (Pulse rate 60s-70s; transient atrial flutter with pulse rate 40s and 50s) Quality Measures - VTE Contraindication to Mechanical VTE Prophylaxis: Local Inflammation Yesica Lemons Dale, MD, personally performed the services described in this documentation, ascribed by Rama Buckner RN in my presence, and it is both accurate and complete .
[2016-12-31] MEDS: CEFTAROLINE 600 MG in SODIUM CHLORIDE 0.9% 100 ML IV SCH (12:21)
[2016-12-31] MEDS: ATORVASTATIN 40 MG TABLET PO SCH (21:34)
[2016-12-31] MEDS: PHENYTOIN ER 100 MG CAPSULE PO SCH (21:34)
[2017-01-01] MEDS: FUROSEMIDE 40 MG/4 ML VIAL IV SCH ×2 (02:50→15:40)
[2017-01-01] MEDS: DILTIAZEM 30 MG TABLET PO SCH ×5 (02:51→23:30)
[2017-01-01 05:26] LABS: Basophils # 0.1 10*3/uL (0.0-0.2); Basophils % 0.8 % (0.0-0.8); Eosinophils # 0.3 10*3/uL (0.0-0.87); Eosinophils % 3.4 % (0.00-10.9); Hematocrit 41.1 VOL% (35.7-47.0); Hemoglobin 13.2 GM/DL (12.0-16.0); Immature Granulocytes % 0.5 %; Immature Granulocytes Absolute 0.04 #; Lymphocytes # 0.4 10*3/uL (1.4-4.0); Lymphocytes % 5.2 % (21.3-54.2); Mean Corpuscular HGB Conc 32.1 GM/DL (32-36); Mean Corpuscular Hemoglobin 28 PG (27-34); Mean Corpuscular Volume 88.6 FL (87-102); Mean Platelet Volume 10.8 FL (9.6-12.0); Monocytes # 0.6 10*3/uL (0.11-0.8); Monocytes % 8.2 % (1.7-12.7); Neutrophils # 6.3 10*3/uL (1.4-7.4); Neutrophils % 81.9 % (38.7-73.9); Platelet Count 160 T/CUMM (130-400); Red Blood Count 4.64 MC/CUMM (3.8-5.5); Red Cell Distribution Width 16.9 % (9.3-17.3); White Blood Count 7.7 T/CUMM (4-12)
[2017-01-01 05:58] LABS: Albumin 2.4 G/DL (3.4-5.0); Bilirubin,Total 0.6 MG/DL (0.2-1.0); Calcium 7.8 MG/DL (8.5-10.1); Magnesium 1.6 MG/DL (1.8-2.4); Osmolality,Calculated 292.1 MOS/KG (273-304); Potassium 3.4 MMOL/L (3.5-5.1); Total Protein 5.5 G/DL (6.4-8.3)
--- NOTE | 2017-01-01 07:28 | Hospitalist Progress Note ---
Assessment and Plan - Time spent with patient Time spent with patient: Less than 30 minutes (1) Bilateral lower leg cellulitis Status: Acute Assessment and plan: Continues to improve with IV antibiotics. Current Visit: Yes (2) Systolic CHF, acute on chronic Status: Chronic Assessment and plan: Patient has acute on chronic systolic congestive heart failure which is decompensated. EF previously estimated at 20%. She has responded to therapy. Continue with diuresis and afterload reduction. Cardiology is following as well. Current Visit: Yes (3) Atrial fibrillation Status: Chronic Assessment and plan: Patient has chronic atrial fibrillation and is being followed by cardiology. Continue current regimen. Current Visit: No Qualifiers: Atrial fibrillation type: chronic Qualified Code(s): I48.2 - Chronic atrial fibrillation (4) Type 2 diabetes mellitus Status: Chronic Assessment and plan: Blood sugars well controlled. Continue current regimen. Current Visit: Yes (5) Hypertension Status: Chronic Assessment and plan: Blood pressure well controlled. Continue current regimen. Current Visit: Yes Qualifiers: Hypertension type: essential hypertension Qualified Code(s): I10 - Essential (primary) hypertension (6) Bradycardia Status: Acute Current Visit: Yes (7) UTI (urinary tract infection) Status: Acute Assessment and plan: E. coli UTI with currently being treated with IV Rocephin. Current Visit: Yes (8) Hypokalemia Status: Acute Assessment and plan: Replacement therapy with follow-up in the a.m. Current Visit: Yes Hospitalist: Subjective Interval history: Ms. Dawson continues to improve. She denies any chest pain or shortness of breath. Appetite is good. Have discussed placement and she is agreeable to possible swing bed. Exam - Constitutional Vitals: Period Temp Pulse Resp BP Sys/Funk Pulse Ox Last 24 Hr 96.9 F-97.9 F 66-97 18-20 120-152/71-93 91-98 General appearance: no acute distress - Head Head exam: Present: normocephalic, atraumatic - Eye Eye exam: Present: EOMI Pupils: Present: WILBERT - ENT ENT exam: Present: normal exam - Neck Neck exam: Present: normal inspection - Respiratory Respiratory exam: Present: clear to auscultation bilaterally. Absent: rales, rhonchi, wheezes - Cardiovascular Cardiovascular exam: Present: irregular rhythm, systolic murmur - GI/Abdominal GI/Abdominal exam: Present: normal bowel sounds, soft. Absent: tenderness - Extremities Exam Extremities exam: Present: other (Bilateral lower extremities currently with dressings in place). Absent: calf tenderness - Back Exam Back exam: Present: normal inspection - Neurological Exam Neurological exam: Present: alert, oriented X3, CN II-XII intact. Absent: motor sensory deficit - Psychiatric Psychiatric exam: Present: normal affect, normal mood. Absent: agitated - Skin Skin exam: Present: warm, dry Results - Labs CBC & BMP: 01/01/17 04:59 01/01/17 04:59 Lab Results: I have reviewed the past 24 hour labs Quality Measures - VTE Contraindication to Mechanical VTE Prophylaxis: Local Inflammation
[2017-01-01] MEDS: INSULIN LISPRO 100 UNIT/ML SUBCUT SCH ×5 (08:05→23:31)
[2017-01-01] MEDS: DOXYCYCLINE HYCLATE 100 MG CAPSULE PO SCH ×2 (08:57→23:29)
[2017-01-01] MEDS: CYANOCOBALAMIN 500 MCG TABLET PO SCH (08:57)
[2017-01-01] MEDS: ASPIRIN EC 325 MG TABLET PO SCH (08:58)
[2017-01-01] MEDS: MAGNESIUM CHLORIDE 64 MG TABLET PO SCH ×2 (08:58→23:30)
[2017-01-01] MEDS: DABIGATRAN 150 MG CAPSULE PO SCH (08:58)
[2017-01-01] MEDS: FERROUS SULFATE 325 MG TABLET PO SCH (08:58)
[2017-01-01] MEDS: POTASSIUM CHLORIDE 20 MEQ TABLET PO SCH (08:59)
[2017-01-01] MEDS: CARVEDILOL 3.125 MG TABLET PO SCH ×2 (09:00→18:12)
[2017-01-01] MEDS: PANTOPRAZOLE 40 MG TABLET PO SCH (09:00)
[2017-01-01] MEDS: MAGNESIUM OXIDE 400 MG TABLET PO SCH (09:00)
[2017-01-01] MEDS: LISINOPRIL 5 MG TABLET PO SCH (09:01)
[2017-01-01] MEDS: GLIMEPIRIDE 4 MG TABLET PO SCH ×2 (09:01→23:29)
[2017-01-01] MEDS: cefTRIAXone 1,000 MG in SODIUM CHLORIDE 0.9% 100 ML IV SCH (09:02)
[2017-01-01] MEDS: DESITIN 4OZ/NYSTATIN 15 GRAM MIXTURE PASTE TOP SCH ×2 (09:07→23:32)
[2017-01-01] MEDS: COLLAGENASE OINT 30 GM TUBE TOP SCH (09:07)
[2017-01-01] MEDS: LACTULOSE 20 GM/30 ML UDCUP PO PRN (13:04)
[2017-01-01] MEDS ORDERED: MAGNESIUM SULF RIDER 2 GM in PREMIX 1 EACH IV ONE (19:39)
--- NOTE | 2017-01-01 19:42 | Cardiology Progress Note ---
Dudley Lemons Vanessa, RN, am scribing for, and in the presence of, Naseem Robert MD 19:42. Assessment and Plan - Time spent with patient Time spent with patient: Greater than 30 minutes (1) Systolic CHF, acute on chronic Status: Chronic Assessment and plan: 71 year old with PMHx of CAD, ischemic cardiomyopathy, congestive heart failure , persistent atrial fibrillation, hypertension, hyperlipidemia, and diabetes presents with generalized weakness and volume overload. Also being treated for cellulitis of bilateral lower extremities and has UTI. She has been followed by Dr. Ferrer in the past, but she has not seen him since 2014 per review of clinic records. BNP elevated at 2595 on admission, since decreased to 2193. 1. CONGESTIVE HEART FAILURE - This is acute on chronic, secondary to systolic dysfunction with severely reduced ejection fraction of 20%, NYHA class III to IV. Echocardiogram this admission with moderate to severe TR and PA pressure 62 mmHg, mild to moderate mitral and pulmonic regurgitation, she was severely reduced LV systolic function and global hypokinesis. Continue diuresis and afterload reduction. Appears to be improving. Hold parameters set for Lasix administration if creatinine greater than 2.0. Continue to monitor renal function closely. 2. PERSISTENT, CHRONIC ATRIAL FIBRILLATION -ventricular response overall well controlled. Patient not anticoagulated for stroke prevention prior to admission , and as she does not have any contraindications, patient has been started on aspirin and Pradaxa. 3. BILATERAL LOWER EXTREMITY CELLULITIS AND EDEMA - continues to show improvement today. Bilateral lower extremity edema is multifactorial. Continue diuresis. 4. CAD -previous history of CABG. Patient has not had any anginal complaint. 5. HYPERTENSION - chronic, and pressures have been overall well controlled. Continue current regimen, and adjust as needed. 6. DIABETES - Overall stable. Defer plan of care to hospital medicine. 7. HYPERLIPIDEMIA - Statin has been continued. 8. UTI - Urine cultures positive for gram negative rods. Treatment for UTI is being managed by hospital medicine. 9. HYPOMAGNESEMIA -Mg 1.6. Being repleted with IV supplement this morning and PO supplement increased per internal medicine service. Follow electrolytes daily and continue to optimize. Will also and mag sulfate 2 g IV now. Since she has arrhythmias, we would like her magnesium normalized. 10. BRADYCARDIA - Continue Cardizem 30 mg by mouth 4 times daily and carvedilol to 3.125 mg by mouth twice daily. Hold parameters set for pulse rate less than 75 and 60 respectively at time of dose. Bradycardia better today. 11. HYPOALBUMINEMIA - Albumin 2.4 today. Most likely a contributing factor to her edema and heart failure also. 12. SUSPECTED SLEEP APNEA - 13. HYPOKALEMIA - K+ 3.4. Agree with adding PO K-Dur supplement. Current Visit: Yes (2) Bilateral lower leg cellulitis Status: Acute Assessment and plan: SEE PLAN OF CARE LISTED ABOVE. Current Visit: Yes (3) Generalized weakness Status: Acute Assessment and plan: SEE PLAN OF CARE LISTED ABOVE. Current Visit: Yes (4) Physical deconditioning Status: Chronic Assessment and plan: SEE PLAN OF CARE LISTED ABOVE. Current Visit: Yes (5) Type 2 diabetes mellitus Status: Chronic Assessment and plan: SEE PLAN OF CARE LISTED ABOVE. Current Visit: Yes (6) UTI (urinary tract infection) Status: Acute Assessment and plan: SEE PLAN OF CARE LISTED ABOVE. Current Visit: Yes (7) Coronary artery disease Status: Chronic Assessment and plan: SEE PLAN OF CARE LISTED ABOVE. Current Visit: Yes (8) Hyperlipidemia Status: Chronic Assessment and plan: SEE PLAN OF CARE LISTED ABOVE. Current Visit: Yes (9) Hypertension Status: Chronic Assessment and plan: SEE PLAN OF CARE LISTED ABOVE. Current Visit: Yes Qualifiers: Hypertension type: essential hypertension Qualified Code(s): I10 - Essential (primary) hypertension (10) Atrial fibrillation Status: Chronic Assessment and plan: SEE PLAN OF CARE LISTED ABOVE. Current Visit: No Qualifiers: Atrial fibrillation type: chronic Qualified Code(s): I48.2 - Chronic atrial fibrillation (11) Hx of CABG Status: Chronic Assessment and plan: SEE PLAN OF CARE LISTED ABOVE. Current Visit: Yes (12) Bradycardia Status: Acute Assessment and plan: SEE PLAN OF CARE LISTED ABOVE. Current Visit: Yes (13) Hypoalbuminemia Status: Acute Assessment and plan: SEE PLAN OF CARE LISTED ABOVE. Current Visit: Yes (14) Suspected sleep apnea Status: Acute Assessment and plan: SEE PLAN OF CARE LISTED ABOVE. Current Visit: Yes (15) Hypokalemia Status: Acute Assessment and plan: SEE PLAN OF CARE LISTED ABOVE. Current Visit: Yes Cardiology - PN: Subj Interval history: [employer] DIRECTOR: DR. FERRER SUMMARY: Ms. Dawson is a 71 year old female with risk factors significant for: Hypertension, hyperlipidemia, diabetes, personal history of CAD past medical history includes chronic persistent atrial fib, CVA 2, ischemic cardiomyopathy with congestive heart failure. Patient has had previous coronary artery bypass grafting in February 2003 with CERRATO to LAD, SVG to ramus intermedius, and SVG to RCA. Patient was admitted to the hospital on December 28 with generalized weakness, bilateral lower extremity edema with cellulitis, and fluid volume overload. Echocardiogram obtained on December 28 with mild LVH, severely reduced systolic function with EF of 20%, moderate to severely increased atria size, mild to moderate MR, moderate to severe TR with a PA pressure of 62 mmHg. Cardiology was consulted by hospital medicine to see patient for further treatment of acute on chronic systolic congestive heart failure, NYHA class III to IV, secondary to severely reduced EF of 20%. December: Ms. Dawson is awake and alert this morning, and she is eating breakfast. No acute distress or needs noted. Denies discomfort, dyspnea, or other complaint today. No acute changes or findings in hemodynamic status overnight. Atrial fibrillation per cardiac monitoring, ventricular response controlled. No overt ectopy seen overnight. Less atrial flutter. Labs reviewed. Cell counts unremarkable. Hypokalemic with K+ 3.4. Hypomagnesemic with Mg+ 1.6. Magnesium being repleted with IV supplement this morning. Systolic BP 120-135 mmHg. Exam (Progress Note) - Constitutional Vitals: Period Temp Pulse Resp BP Sys/Funk Pulse Ox Last 24 Hr 96.9 F-97.9 F 66-97 18-20 120-152/71-93 91-98 Exam: General appearance: Obese, no acute distress - Head Head exam: Present: Hirsutism, normocephalic, atraumatic. Absent: hematoma, laceration - Eye Eye exam: Present: EOMI. Absent: conjunctival injection, nystagmus, periorbital swelling, scleral icterus, laceration to eyelids Pupils: Absent: constricted, dilated, fixed, irregular, unequal - ENT ENT exam: Present: normal exam, normal external ear exam - Neck Neck exam: Present: overall normal inspection. Absent: lymphadenopathy, meningismus, tenderness, thyromegaly - Respiratory Respiratory exam: Present: overall clear to auscultation bilaterally. Absent: accessory muscle use, chest wall tenderness, wheeze, rhonchi. - Cardiovascular Cardiovascular exam: Present: tones in general distant but overall irregularly irregular rate and rhythm, systolic murmur. Absent: carotid bruit, gallop, JVD , rubs - GI/Abdominal GI/Abdominal exam: Present: normal bowel sounds, soft, obese. Absent: distended , firm, guarding, hernia, mass, tenderness, rebound, - Extremities Exam Extremities exam: Present: There is 2 + pitting bilateral lower extremity edema and continues to improve. Skin is thickened and tense consistent with chronic edema. Bilateral erythema and some bullae. Bilateral lower extremity with compression dressings intact. - Back Exam Back exam: Present: normal inspection. Absent: muscle spasm, vertebral tenderness - Neurological Exam Neurological exam: Present: alert, oriented X3, grossly intact without resting tremor. - Psychiatric Psychiatric exam: Present: normal affect, normal mood. Patient does not seem anxious or depressed. - Skin Skin exam: Present: Erythema and bulla on the bilateral lower extremities, warm , dry, intact. Absent: cyanosis, diaphoretic, urticaria Result/EKG - Labs CBC & BMP: 01/01/17 04:59 01/01/17 04:59 Lab Results: I have reviewed the past 24 hour labs Labs: Laboratory Results - last 24 hr 12/31/16 12/31/16 12/31/16 07:40 11:51 16:31 WBC RBC Hgb Hct MCV MCH MCHC RDW Plt Count MPV Neut % (Auto) Lymph % (Auto) Archer % (Auto) Eos % (Auto) Baso % (Auto) Neut # (Auto) Lymph # (Auto) Archer # (Auto) Eos # (Auto) Baso # (Auto) Immature Gran % Nucleated RBC % Immature Gran # Nucleated RBCs # Sodium Potassium Chloride Carbon Dioxide Anion Gap BUN Creatinine GFR Calculation BUN/Creatinine Ratio Glucose POC Glucose 84 136 H 145 H Calculated Osmolality Calcium Magnesium Total Bilirubin AST ALT Alkaline Phosphatase Total Protein Albumin Globulin Albumin/Globulin Ratio 12/31/16 01/01/17 01/01/17 19:58 04:59 04:59 WBC 7.7 RBC 4.64 Hgb 13.2 Hct 41.1 MCV 88.6 MCH 28 MCHC 32.1 RDW 16.9 Plt Count 160 MPV 10.8 Neut % (Auto) 81.9 H Lymph % (Auto) 5.2 L Archer % (Auto) 8.2 Eos % (Auto) 3.4 Baso % (Auto) 0.8 Neut # (Auto) 6.3 Lymph # (Auto) 0.4 L Archer # (Auto) 0.6 Eos # (Auto) 0.3 Baso # (Auto) 0.1 Immature Gran % 0.5 Nucleated RBC % 0.0 Immature Gran # 0.04 Nucleated RBCs # 0.00 Sodium 142 Potassium 3.4 L Chloride 103 Carbon Dioxide 29 Anion Gap 13.4 BUN 34 H Creatinine 1.20 H GFR Calculation 53 BUN/Creatinine Ratio 28.00 H Glucose 133 H POC Glucose 121 H Calculated Osmolality 292.1 Calcium 7.8 L Magnesium 1.6 L Total Bilirubin 0.60 AST 11 ALT 10 L Alkaline Phosphatase 81 Total Protein 5.5 L Albumin 2.4 L Globulin 3.1 Albumin/Globulin Ratio 0.7 L - EKG EKG results: interpreted by me, no acute changes EKG shows: atrial fibrillation Quality Measures - VTE Contraindication to Mechanical VTE Prophylaxis: Local Inflammation IYesica Dale, MD, personally performed the services described in this documentation, ascribed by Rama Buckner RN in my presence, and it is both accurate and complete [id number] .
[2017-01-01] MEDS: PHENYTOIN ER 100 MG CAPSULE PO SCH (23:29)
[2017-01-01] MEDS: ATORVASTATIN 40 MG TABLET PO SCH (23:29)
[2017-01-02] MEDS: FUROSEMIDE 40 MG/4 ML VIAL IV SCH (03:36)
[2017-01-02] MEDS: DILTIAZEM 30 MG TABLET PO SCH ×2 (03:39→08:54)
[2017-01-02 06:01] LABS: Calcium 8.2 MG/DL (8.5-10.1); Osmolality,Calculated 288.3 MOS/KG (273-304); Potassium 3.5 MMOL/L (3.5-5.1)
[2017-01-02] MEDS: INSULIN LISPRO 100 UNIT/ML SUBCUT SCH ×2 (07:53→12:05)
[2017-01-02] MEDS: cefTRIAXone 1,000 MG in SODIUM CHLORIDE 0.9% 100 ML IV SCH (08:51)
[2017-01-02] MEDS: DOXYCYCLINE HYCLATE 100 MG CAPSULE PO SCH (08:53)
[2017-01-02] MEDS: CYANOCOBALAMIN 500 MCG TABLET PO SCH (08:53)
[2017-01-02] MEDS: FERROUS SULFATE 325 MG TABLET PO SCH (08:53)
[2017-01-02] MEDS: GLIMEPIRIDE 4 MG TABLET PO SCH (08:53)
[2017-01-02] MEDS: PANTOPRAZOLE 40 MG TABLET PO SCH (08:54)
[2017-01-02] MEDS: LISINOPRIL 5 MG TABLET PO SCH (08:54)
[2017-01-02] MEDS: DABIGATRAN 150 MG CAPSULE PO SCH (08:54)
[2017-01-02] MEDS: MAGNESIUM CHLORIDE 64 MG TABLET PO SCH (08:54)
[2017-01-02] MEDS: POTASSIUM CHLORIDE 20 MEQ TABLET PO SCH (08:54)
[2017-01-02] MEDS: COLLAGENASE OINT 30 GM TUBE TOP SCH (08:55)
[2017-01-02] MEDS: MAGNESIUM OXIDE 400 MG TABLET PO SCH (08:55)
[2017-01-02] MEDS: ASPIRIN EC 325 MG TABLET PO SCH (08:55)
[2017-01-02] MEDS: DESITIN 4OZ/NYSTATIN 15 GRAM MIXTURE PASTE TOP SCH (08:55)
[2017-01-02] MEDS: CARVEDILOL 3.125 MG TABLET PO SCH (08:55)
[2017-01-02] MEDS ORDERED: SODIUM PHOSPHATE ENEMA 133 ML BOTTLE RECTAL PRN (10:56)
[2017-01-02] MEDS: LACTULOSE 20 GM/30 ML UDCUP PO PRN (10:58)
--- NOTE | 2017-01-02 11:33 | Discharge Summary ---
<Oneida Ivory - Last Filed: 01/02/17 10:21> Hospital Course - Hospital Course Hospital Course: Ms. Dawson is a 71 yr old white female patient with a history of afib, chf, cad, htn, MA, CVA, seizures, dm, and arf that presented to the ED on 12/28 for evaluation of one week of generalized weakness. Pt. stated that she was so weak she was unable to move and that resulted in her urinating and having a bowel movement on herself. On examination in ED, CXR revealed cardiomegaly and evidence of CHF. Pt. was also noted to have lower extremity edema with probable cellulitis. Pt. was admitted for further eval and treatment for CHF exacerbation , cellutiis, and UTI. Pt. was started on diuretics, iv antibiotics, wound care was consulted as well as PT/OT, and venous dopplers of legs. Cardiology was consulted to evaluate. Echo revealed EF of 20%. Renal function was monitored and patient was continually diuresed. During stay, she had low potassium and magnesium which was treated. Pt's condition improved and she requested placement. She has now reached maximal benefit of inpatient stay. Today, patient is stable and can be discharged to the swingbed facility. Specialty Discharge - Follow Up or Referrals Follow up with: Donte Ferrer MD [Physician] - 02/11/17 12:40 pm Discharge Plan - Discharge Data Disposition: Swing Bed, [facility], [facility] - Discharge Medications New Carvedilol [Coreg] 3.125 mg PO BID W/MEALS tablet Diltiazem Tab [Cardizem Tab] 30 mg PO Q6H tablet Doxycycline Hyclate Cap [Vibramycin Cap] 100 mg PO BID #28 capsule Lisinopril [Prinivil] 5 mg PO DAILY tablet Continue Dabigatran [Pradaxa] 150 mg PO DAILY Cyanocobalamin (Vitamin B-12) [Vitamin B-12] 1,000 mcg PO DAILY metFORMIN [Glucophage] 1,000 mg PO BID W/MEALS Phenytoin ER Cap [Dilantin Cap] 400 mg PO BEDTIME Glimepiride 4 mg PO BID Furosemide Tab [Lasix Tab] 80 mg PO BID DIURETIC Potassium Chloride [Klor-Con 10] 10 meq PO DAILY Magnesium Oxide 400 mg PO DAILY Meloxicam 7.5 mg PO DAILY Meclizine [Antivert] 25 mg PO TID PRN PRN Reason: Dizziness Aspirin EC Tab 325 mg PO DAILY Atorvastatin [Lipitor] 40 mg PO BEDTIME Ferrous Sulfate 325 mg PO DAILY Discontinued Carvedilol [Carvedilol] 6.25 mg PO BID W/MEALS dilTIAZem HCl [Diltiazem ER] 360 mg PO DAILY - Follow Up or Referral Follow Up: Donte Ferrer MD [Physician] - 02/11/17 12:40 pm - Forms/Instructions Exam - Constitutional Vitals: Period Temp Pulse Resp BP Sys/Funk Pulse Ox Last 24 Hr 96.1 F-98.1 F 70-95 18-20 121-151/62-90 92-99 Discharge Results Procedures and tests throughout hospitalization: Pending Orders 12/28/16 13:33 Blood Culture Stat Labs on day of discharge: Labs from last 24 hours 01/02/17 01/02/17 01/02/17 11:03 07:10 05:12 Sodium Potassium Chloride Carbon Dioxide Anion Gap BUN Creatinine GFR Calculation BUN/Creatinine Ratio Glucose POC Glucose 164 H 108 H Calculated Osmolality Calcium Magnesium 1.8 01/02/17 01/01/17 01/01/17 05:12 19:05 15:26 Sodium 141 Potassium 3.5 Chloride 101 Carbon Dioxide 32 Anion Gap 11.5 BUN 30 H Creatinine 1.20 H GFR Calculation 53 BUN/Creatinine Ratio 25.00 H Glucose 136 H POC Glucose 143 H 156 H Calculated Osmolality 288.3 Calcium 8.2 L Magnesium 01/01/17 11:28 Sodium Potassium Chloride Carbon Dioxide Anion Gap BUN Creatinine GFR Calculation BUN/Creatinine Ratio Glucose POC Glucose 122 H Calculated Osmolality Calcium Magnesium Preliminary micro results at discharge 12/28/16 13:33 Blood Culture - Preliminary Blood No growth at 3 days 12/28/16 12:57 Blood Culture - Preliminary Blood No growth at 3 days DS: Provider Date of admission: 12/28/16 14:37 Primary care physician: . No PCP Attending physician on admission: Stormy Gurrola MD Consults: 12/28/16 15:06 Consult to Physician [CONS] Routine Comment: CHF exac, pt of Nabil Consulting Provider: Sari Lorenzo Consulting Provider Notified: Yes Person Notified: Kia Date Notified: 12/28/16 Time Notified: 18:08 12/28/16 15:09 Consult to Case Mgmt/Social Srvs [CONS] Routine Reason for Case Mgmt/Social Srvs: Discharge Planning Consult Comment: swing bed/NH/needs a place to go Consult to Occupational Therapy [CONS] Routine Reason for Occupational Therapy: Evaluate and Treat Consult to Physical Therapy [CONS] Routine Reason for Physical Therapy: Evaluate and Treat 12/28/16 15:10 Consult to Wound Care [facility] [CONS] Routine Reason for Wound Care: Wound Care Management Discharging clinician: Oneida Ivory NP <Coty Cooley - Last Filed: 01/02/17 11:45> Hospital Course - Time spent with patient Time with patient DS: Greater than 30 minutes (35) Diagnosis - Discharge Diagnosis (1) Bilateral lower leg cellulitis Status: Resolved (2) UTI (urinary tract infection) Status: Resolved (3) Diabetes mellitus Status: Chronic (4) Bradycardia Status: Resolved (5) Hypokalemia Status: Resolved (6) Hypomagnesemia Status: Resolved Discharge Plan - Discharge Data Condition at Discharge: Stable Discharge Diet: diabetic diet, heart healthy Activity: as per physical therapy Hygiene: no restrictions Weight Bearing at Discharge: weight bear as tolerated Contact your physician if you experience:: fever over 101, Shortness of breath Exam - Constitutional General appearance: normal weight - Head Head exam: Present: normocephalic, atraumatic - Eye Eye exam: Present: EOMI Pupils: Present: WILBERT - ENT ENT exam: Present: normal exam - Neck Neck exam: Present: normal inspection - Respiratory Respiratory exam: Present: clear to auscultation bilaterally. Absent: rhonchi, wheezes - Cardiovascular Cardiovascular exam: Present: regular rate and rhythm - GI/Abdominal GI/Abdominal exam: Present: normal bowel sounds, soft. Absent: tenderness, rebound - Extremities Exam Extremities exam: Present: edema - Back Exam Back exam: Present: normal inspection - Neurological Exam Neurological exam: Present: alert - Psychiatric Psychiatric exam: Present: normal affect, normal mood - Skin Skin exam: Present: warm, intact
[2017-01-02 11:36] VITALS: BP 136/85
--- NOTE | 2017-01-02 19:39 | Cardiology Progress Note ---
Dudley Lemons Vanessa RN, am scribing for, and in the presence of, Naesem Robert MD 19:39. Assessment and Plan - Time spent with patient Time spent with patient: Greater than 30 minutes (1) Systolic CHF, acute on chronic Status: Chronic Assessment and plan: 71 year old with PMHx of CAD, ischemic cardiomyopathy, congestive heart failure , persistent atrial fibrillation, hypertension, hyperlipidemia, and diabetes presents with generalized weakness and volume overload. Also being treated for cellulitis of bilateral lower extremities and has UTI. She has been followed by Dr. Ferrer in the past, but she has not seen him since 2015 per review of clinic records. BNP elevated at 2595 on admission, since decreased to 2193. 1. CONGESTIVE HEART FAILURE - This is acute on chronic, secondary to systolic dysfunction with severely reduced ejection fraction of 20%, NYHA class III to IV. Echocardiogram this admission with moderate to severe TR and PA pressure 62 mmHg, mild to moderate mitral and pulmonic regurgitation, she was severely reduced LV systolic function and global hypokinesis. Continue diuresis and afterload reduction. Appears to be improving. Hold parameters set for Lasix administration if creatinine greater than 2.0. Continue to monitor renal function closely. 2. PERSISTENT, CHRONIC ATRIAL FIBRILLATION -ventricular response overall well controlled. Patient not anticoagulated for stroke prevention prior to admission , and as she does not have any contraindications, patient has been started on aspirin and Pradaxa. No melena, overt s/s bleeding. 3. BILATERAL LOWER EXTREMITY CELLULITIS AND EDEMA - Steady improvement. Bilateral lower extremity edema is multifactorial. Continue diuresis. 4. CAD -previous history of CABG. Patient has not had any anginal complaint. 5. HYPERTENSION - chronic, and pressures have been overall well controlled. Continue current regimen, and adjust as needed. 6. DIABETES - Overall stable. Defer plan of care to hospital medicine. 7. HYPERLIPIDEMIA - Statin has been continued. 8. UTI - Urine cultures positive for gram negative rods. Treatment for UTI is being managed by hospital medicine. 9. HYPOMAGNESEMIA - Resolved today. Mg+ 1.8. Continue PO supplements and replete with IV MagSulfate as needed. Monitor BMP. 10. BRADYCARDIA - Continue Cardizem 30 mg by mouth 4 times daily and carvedilol to 3.125 mg by mouth twice daily. Hold parameters set for pulse rate less than 75 and 60 respectively at time of dose. Bradycardia appears to have now resolved. Ventricular response 70s-80s. 11. HYPOALBUMINEMIA - Albumin 2.4 today. Most likely a contributing factor to her edema and heart failure also. 12. SUSPECTED SLEEP APNEA - 13. HYPOKALEMIA - Resolved today. K+ 3.5. Continue PO K-Dur supplement. Monitor BMP. Ready for transfer to swing bed Leg edema is less Atrial fibrillation is controlled The patient will be for follow-up with Dr. Marco Antonio Ferrer in 4-6 weeks, after she gets out of rehab Thank you for allowing me to participate in this patient's care (2) Bilateral lower leg cellulitis Status: Resolved Assessment and plan: SEE PLAN OF CARE LISTED ABOVE. (3) Generalized weakness Status: Acute Assessment and plan: SEE PLAN OF CARE LISTED ABOVE. (4) Physical deconditioning Status: Chronic Assessment and plan: SEE PLAN OF CARE LISTED ABOVE. (5) Type 2 diabetes mellitus Status: Chronic Assessment and plan: SEE PLAN OF CARE LISTED ABOVE. (6) UTI (urinary tract infection) Status: Resolved Assessment and plan: SEE PLAN OF CARE LISTED ABOVE. (7) Coronary artery disease Status: Chronic Assessment and plan: SEE PLAN OF CARE LISTED ABOVE. (8) Hyperlipidemia Status: Chronic Assessment and plan: SEE PLAN OF CARE LISTED ABOVE. (9) Hypertension Status: Chronic Assessment and plan: SEE PLAN OF CARE LISTED ABOVE. Qualifiers: Hypertension type: essential hypertension Qualified Code(s): I10 - Essential (primary) hypertension (10) Atrial fibrillation Status: Chronic Assessment and plan: SEE PLAN OF CARE LISTED ABOVE. Qualifiers: Atrial fibrillation type: chronic Qualified Code(s): I48.2 - Chronic atrial fibrillation (11) Hx of CABG Status: Chronic Assessment and plan: SEE PLAN OF CARE LISTED ABOVE. (12) Bradycardia Status: Resolved Assessment and plan: SEE PLAN OF CARE LISTED ABOVE. (13) Hypoalbuminemia Status: Acute Assessment and plan: SEE PLAN OF CARE LISTED ABOVE. (14) Suspected sleep apnea Status: Acute Assessment and plan: SEE PLAN OF CARE LISTED ABOVE. (15) Hypokalemia Status: Resolved Assessment and plan: SEE PLAN OF CARE LISTED ABOVE. 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 FERRER SUMMARY: Ms. Dawson is a 71 year old female with risk factors significant for: Hypertension, hyperlipidemia, diabetes, personal history of CAD past medical history includes chronic persistent atrial fib, CVA 2, ischemic cardiomyopathy with congestive heart failure. Patient has had previous coronary artery bypass grafting in February 2003 with CERRATO to LAD, SVG to ramus intermedius, and SVG to RCA. Patient was admitted to the hospital on December 28 with generalized weakness, bilateral lower extremity edema with cellulitis, and fluid volume overload. Echocardiogram obtained on December 28 with mild LVH, severely reduced systolic function with EF of 20%, moderate to severely increased atria size, mild to moderate MR, moderate to severe TR with a PA pressure of 62 mmHg. Cardiology was consulted by hospital medicine to see patient for further treatment of acute on chronic systolic congestive heart failure, NYHA class III to IV, secondary to severely reduced EF of 20%. December: No acute changes or new findings in patient's hemodynamic status overnight. Patient is awake and alert this morning, and she is in good spirits. No chest discomfort or tightness, shortness of breath, orthopnea, PND, palpitation, presyncope, or other complaint. Afebrile, vitals stable. Hypomagnesemia and hypokalemia resolved this morning, 1.8 and 3.5 respectively. Renal function stable with creatinine remaining at 1.2. Atrial fib per cardiac monitoring with ventricular response 70s-80s. No bradycardia or other dysrhythmia appreciated. Tentatively planned for discharge to swing bed later today. From a cardiac standpoint, she is stable to do so. Exam (Progress Note) - Constitutional Vitals: Period Temp Pulse Resp BP Sys/Funk Pulse Ox Last 24 Hr 96.1 F-98.2 F 70-95 18-20 121-143/62-90 92-96 Exam: General appearance: Obese, no acute distress - Head Head exam: Present: Hirsutism, normocephalic, atraumatic. Absent: hematoma, laceration - Eye Eye exam: Present: EOMI. Absent: conjunctival injection, nystagmus, periorbital swelling, scleral icterus, laceration to eyelids Pupils: Absent: constricted, dilated, fixed, irregular, unequal - ENT ENT exam: Present: normal exam, normal external ear exam - Neck Neck exam: Present: overall normal inspection. Absent: lymphadenopathy, meningismus, tenderness, thyromegaly - Respiratory Respiratory exam: Present: overall clear to auscultation bilaterally. Absent: accessory muscle use, chest wall tenderness, wheeze, rhonchi, rales. - Cardiovascular Cardiovascular exam: Present: tones in general distant but overall irregularly irregular rate and rhythm, systolic murmur. Absent: carotid bruit, gallop, JVD , rubs - GI/Abdominal GI/Abdominal exam: Present: normal bowel sounds, soft, obese. Absent: distended , firm, guarding, hernia, mass, tenderness, rebound, - Extremities Exam Extremities exam: Present: There is 2 + pitting bilateral lower extremity edema and continues to improve. Skin is thickened and tense consistent with chronic edema. Bilateral erythema and some bullae. Bilateral lower extremity with compression dressings intact. - Back Exam Back exam: Present: normal inspection. Absent: muscle spasm, vertebral tenderness. - Neurological Exam Neurological exam: Present: alert, oriented X3, grossly intact without resting tremor. - Psychiatric Psychiatric exam: Present: normal affect, normal mood. Patient does not seem anxious or depressed. - Skin Skin exam: Present: Erythema and bulla on the bilateral lower extremities, warm , dry, intact. Absent: cyanosis, diaphoretic, urticaria Result/EKG - Labs CBC & BMP: 01/01/17 04:59 01/02/17 05:12 Lab Results: I have reviewed the past 24 hour labs Labs: Laboratory Results - last 24 hr 01/01/17 01/01/17 01/01/17 07:42 11:28 15:26 Sodium Potassium Chloride Carbon Dioxide Anion Gap BUN Creatinine GFR Calculation BUN/Creatinine Ratio Glucose POC Glucose 112 H 122 H 156 H Calculated Osmolality Calcium Magnesium 01/01/17 01/02/17 01/02/17 19:05 05:12 05:12 Sodium 141 Potassium 3.5 Chloride 101 Carbon Dioxide 32 Anion Gap 11.5 BUN 30 H Creatinine 1.20 H GFR Calculation 53 BUN/Creatinine Ratio 25.00 H Glucose 136 H POC Glucose 143 H Calculated Osmolality 288.3 Calcium 8.2 L Magnesium 1.8 - EKG EKG results: interpreted by me, no acute changes EKG shows: atrial fibrillation Quality Measures - VTE Contraindication to Mechanical VTE Prophylaxis: Local Inflammation Specialty Discharge - Follow Up or Referrals Follow up with: Donte Ferrer MD [Physician] - 02/11/17 12:40 pm IYesica Dale, MD, personally performed the services described in this documentation, ascribed by Rama Buckner RN in my presence, and it is both accurate and complete .
== END 2017-01-02 12:45 | disposition swing bed (61) | DRG 602 ==
LOC: N.ED 10:58 → SUATTDRO 14:37 → N.EDINP 14:37 → N.2E 16:32
PROVIDERS: ADMIT Internal Medicine; ATTEND Internal Medicine

== ENCOUNTER 2017-05-14 14:07 | Inpatient (IN) ==
[2017-05-14 14:50] LABS: Basophils # 0.1 10*3/uL (0.0-0.2); Basophils % 0.7 % (0.0-0.8); Eosinophils # 0.1 10*3/uL (0.0-0.87); Eosinophils % 0.6 % (0.00-10.9); Hematocrit 39.2 VOL% (35.7-47.0); Hemoglobin 12.6 GM/DL (12.0-16.0); Immature Granulocytes % 0.2 %; Immature Granulocytes Absolute 0.02 #; Lymphocytes # 0.6 10*3/uL (1.4-4.0); Lymphocytes % 7.2 % (21.3-54.2); Mean Corpuscular HGB Conc 32.1 GM/DL (32-36); Mean Corpuscular Hemoglobin 30 PG (27-34); Mean Corpuscular Volume 94.5 FL (87-102); Mean Platelet Volume 10.1 FL (9.6-12.0); Monocytes # 0.5 10*3/uL (0.11-0.8); Monocytes % 6.1 % (1.7-12.7); Neutrophils # 7.4 10*3/uL (1.4-7.4); Neutrophils % 85.2 % (38.7-73.9); Platelet Count 213 T/CUMM (130-400); Red Blood Count 4.15 MC/CUMM (3.8-5.5); Red Cell Distribution Width 14.6 % (9.3-17.3); White Blood Count 8.7 T/CUMM (4-12)
[2017-05-14 14:57] LABS: INR 1.3; PT Patient Result 13.7 SECS; Partial Thromboplastin Time 35.3 SECS (0-40)
[2017-05-14 15:11] LABS: Albumin 3.4 G/DL (3.4-5.0); Bilirubin,Total 1.2 MG/DL (0.2-1.0); Calcium 8.7 MG/DL (8.5-10.1); Osmolality,Calculated 291.4 MOS/KG (273-304); Potassium 4.4 MMOL/L (3.5-5.1); Total Protein 7.2 G/DL (6.4-8.3)
[2017-05-14 16:18] LABS: Apearance,Urine Slightly Hazy (Clear); Bacteria,Urine Many /HPF (Few); Bilirubin,Urine Negative (Negative); Blood, Urine Negative (Negative); Glucose,Urine (UA) Negative (Negative); Ketones,Urine Negative (Negative); Mucus,Urine Moderate /LPF (Occasional); Nitrite,Urine Negative (Negative); Protein,Urine 100 MG/DL; Squamous Epithelial Cell,Urine Occasional /HPF (0-10); Urine Color Yellow (Yellow); Urine Specific Gravity 1.014 (1.001-1.035); Urine Urobilinogen < 2.0 EU/DL (0.2-1.0); WBC,Urine 17 /HPF (0-6)
[2017-05-14] MEDS ORDERED: SODIUM CHLORIDE 0.45% 1,000 ML IV SCH (17:00)
[2017-05-14] MEDS ORDERED: DILTIAZEM INJ 100 MG in SODIUM CHLORIDE 0.9% 100 ML IV SCH (18:00)
[2017-05-14] MEDS ORDERED: DABIGATRAN 150 MG CAPSULE PO SCH (21:00)
[2017-05-14] MEDS: ATORVASTATIN 40 MG TABLET PO SCH (21:24)
[2017-05-14] MEDS: FERROUS SULFATE 325 MG TABLET PO SCH (21:24)
[2017-05-14] MEDS: CARVEDILOL 6.25 MG TABLET PO SCH (21:24)
[2017-05-14] MEDS: PHENYTOIN ER 100 MG CAPSULE PO SCH (21:25)
[2017-05-14] MEDS: CEFTAROLINE 600 MG in SODIUM CHLORIDE 0.9% 50 ML IV SCH (21:33)
[2017-05-15] MEDS ORDERED: ASPIRIN EC 325 MG TABLET PO SCH ×2 (09:00→17:15)
[2017-05-15] MEDS: metFORMIN 500 MG TABLET PO SCH ×2 (09:37→16:11)
[2017-05-15] MEDS: LOSARTAN 25 MG TABLET PO SCH (09:37)
[2017-05-15] MEDS: MELOXICAM 7.5 MG TABLET PO SCH (09:37)
[2017-05-15] MEDS: CYANOCOBALAMIN 500 MCG TABLET PO SCH (09:37)
[2017-05-15] MEDS: FERROUS SULFATE 325 MG TABLET PO SCH ×2 (09:37→22:12)
[2017-05-15] MEDS: POTASSIUM CHLORIDE 10 MEQ TABLET PO SCH (09:38)
[2017-05-15] MEDS: CARVEDILOL 6.25 MG TABLET PO SCH ×2 (09:38→22:15)
[2017-05-15] MEDS: FUROSEMIDE 80 MG TABLET PO SCH ×2 (09:39→16:11)
[2017-05-15] MEDS: MAGNESIUM OXIDE 400 MG TABLET PO SCH (09:39)
[2017-05-15] MEDS: CEFTAROLINE 600 MG in SODIUM CHLORIDE 0.9% 50 ML IV SCH ×2 (09:43→22:13)
[2017-05-15] MEDS: NYSTATIN POWDER 15 GM BOTTLE TOP SCH ×2 (14:02→22:13)
[2017-05-15] MEDS ORDERED: DIGOXIN 0.25 MG TABLET PO ONE (17:16)
[2017-05-15] MEDS: DABIGATRAN 150 MG CAPSULE PO SCH (22:12)
[2017-05-15] MEDS: PHENYTOIN ER 100 MG CAPSULE PO SCH (22:12)
[2017-05-15] MEDS: ATORVASTATIN 40 MG TABLET PO SCH (22:12)
[2017-05-15] MEDS ORDERED: DIGOXIN 0.125 MG TABLET PO ONE (23:55)
[2017-05-16 10:05] LABS: Basophils % 0.6 % (0.0-0.8); Eosinophils # 0.3 10*3/uL (0.0-0.87); Eosinophils % 4.7 % (0.00-10.9); Hematocrit 32.4 VOL% (35.7-47.0); Immature Granulocytes % 0.5 %; Immature Granulocytes Absolute 0.03 #; Lymphocytes # 0.6 10*3/uL (1.4-4.0); Lymphocytes % 9.6 % (21.3-54.2); Mean Corpuscular HGB Conc 32.1 GM/DL (32-36); Mean Corpuscular Hemoglobin 31 PG (27-34); Mean Platelet Volume 10.2 FL (9.6-12.0); Monocytes # 0.6 10*3/uL (0.11-0.8); Monocytes % 9.1 % (1.7-12.7); Neutrophils # 4.9 10*3/uL (1.4-7.4); Neutrophils % 75.5 % (38.7-73.9); Red Blood Count 3.41 MC/CUMM (3.8-5.5); Red Cell Distribution Width 14.7 % (9.3-17.3); White Blood Count 6.5 T/CUMM (4-12)
[2017-05-16 10:11] LABS: Hemoglobin 10.4 GM/DL (12.0-16.0); Platelet Count 167 T/CUMM (130-400)
[2017-05-16 10:42] LABS: Calcium 7.9 MG/DL (8.5-10.1); Osmolality,Calculated 291.3 MOS/KG (273-304)
[2017-05-16] MEDS: DABIGATRAN 150 MG CAPSULE PO SCH ×2 (10:59→21:11)
[2017-05-16] MEDS: metFORMIN 500 MG TABLET PO SCH ×2 (10:59→16:24)
[2017-05-16] MEDS: CARVEDILOL 6.25 MG TABLET PO SCH ×2 (11:01→21:11)
[2017-05-16] MEDS: MELOXICAM 7.5 MG TABLET PO SCH (11:01)
[2017-05-16] MEDS: MAGNESIUM OXIDE 400 MG TABLET PO SCH (11:01)
[2017-05-16] MEDS: CYANOCOBALAMIN 500 MCG TABLET PO SCH (11:02)
[2017-05-16] MEDS: DIGOXIN 0.125 MG TABLET PO SCH (11:02)
[2017-05-16] MEDS: POTASSIUM CHLORIDE 10 MEQ TABLET PO SCH (11:04)
[2017-05-16] MEDS: FERROUS SULFATE 325 MG TABLET PO SCH ×2 (11:04→21:11)
[2017-05-16] MEDS: ASPIRIN EC 81 MG TABLET PO SCH (11:04)
[2017-05-16] MEDS: FUROSEMIDE 80 MG TABLET PO SCH ×2 (11:04→16:24)
[2017-05-16] MEDS: LOSARTAN 25 MG TABLET PO SCH (11:05)
[2017-05-16] MEDS: CEFTAROLINE 600 MG in SODIUM CHLORIDE 0.9% 50 ML IV SCH (11:24)
[2017-05-16] MEDS ORDERED: SKIN HEALING OINT (AQUAPHOR) 50 GM TUBE TOP PRN (11:44)
[2017-05-16] MEDS: cefTRIAXone 1,000 MG in SYRINGE 1 EACH IV SCH (15:15)
[2017-05-16] MEDS: NYSTATIN POWDER 15 GM BOTTLE TOP SCH ×2 (15:16→21:11)
[2017-05-16] MEDS: PHENYTOIN ER 100 MG CAPSULE PO SCH (21:11)
[2017-05-16] MEDS: ATORVASTATIN 40 MG TABLET PO SCH (21:12)
[2017-05-17 06:01] LABS: Basophils # 0.1 10*3/uL (0.0-0.2); Basophils % 0.7 % (0.0-0.8); Eosinophils # 0.4 10*3/uL (0.0-0.87); Eosinophils % 4.3 % (0.00-10.9); Hematocrit 33.3 VOL% (35.7-47.0); Hemoglobin 10.7 GM/DL (12.0-16.0); Immature Granulocytes % 0.4 %; Immature Granulocytes Absolute 0.03 #; Lymphocytes # 0.6 10*3/uL (1.4-4.0); Lymphocytes % 6.8 % (21.3-54.2); Mean Corpuscular HGB Conc 32.1 GM/DL (32-36); Mean Corpuscular Hemoglobin 30 PG (27-34); Mean Corpuscular Volume 94.6 FL (87-102); Mean Platelet Volume 10.4 FL (9.6-12.0); Monocytes # 0.8 10*3/uL (0.11-0.8); Monocytes % 9.7 % (1.7-12.7); Neutrophils # 6.5 10*3/uL (1.4-7.4); Neutrophils % 78.1 % (38.7-73.9); Platelet Count 170 T/CUMM (130-400); Red Blood Count 3.52 MC/CUMM (3.8-5.5); Red Cell Distribution Width 14.6 % (9.3-17.3); White Blood Count 8.4 T/CUMM (4-12)
[2017-05-17] MEDS ORDERED: ONDANSETRON 4 MG/2 ML VIAL IV PRN (06:04)
[2017-05-17 06:29] LABS: Calcium 8.2 MG/DL (8.5-10.1); Magnesium 1.6 MG/DL (1.8-2.4); Osmolality,Calculated 289.3 MOS/KG (273-304); Potassium 4.3 MMOL/L (3.5-5.1)
[2017-05-17] MEDS: CYANOCOBALAMIN 500 MCG TABLET PO SCH (09:05)
[2017-05-17] MEDS: DABIGATRAN 150 MG CAPSULE PO SCH ×2 (09:05→21:19)
[2017-05-17] MEDS: metFORMIN 500 MG TABLET PO SCH ×2 (09:05→16:41)
[2017-05-17] MEDS: DIGOXIN 0.125 MG TABLET PO SCH (09:05)
[2017-05-17] MEDS: ASPIRIN EC 81 MG TABLET PO SCH (09:06)
[2017-05-17] MEDS: FERROUS SULFATE 325 MG TABLET PO SCH ×2 (09:06→21:19)
[2017-05-17] MEDS: FUROSEMIDE 80 MG TABLET PO SCH ×2 (09:06→16:41)
[2017-05-17] MEDS: MAGNESIUM OXIDE 400 MG TABLET PO SCH (09:06)
[2017-05-17] MEDS: POTASSIUM CHLORIDE 10 MEQ TABLET PO SCH (09:06)
[2017-05-17] MEDS: LOSARTAN 25 MG TABLET PO SCH (09:06)
[2017-05-17] MEDS: CARVEDILOL 6.25 MG TABLET PO SCH ×2 (09:06→21:20)
[2017-05-17] MEDS: MELOXICAM 7.5 MG TABLET PO SCH (09:06)
[2017-05-17] MEDS: NYSTATIN POWDER 15 GM BOTTLE TOP SCH ×2 (09:12→21:22)
[2017-05-17] MEDS: cefTRIAXone 1,000 MG in SYRINGE 1 EACH IV SCH (15:40)
[2017-05-17] MEDS: PHENYTOIN ER 100 MG CAPSULE PO SCH (21:19)
[2017-05-17] MEDS: ATORVASTATIN 40 MG TABLET PO SCH (21:19)
[2017-05-18 06:16] LABS: Basophils # 0.1 10*3/uL (0.0-0.2); Basophils % 0.7 % (0.0-0.8); Eosinophils # 0.4 10*3/uL (0.0-0.87); Eosinophils % 5.2 % (0.00-10.9); Hematocrit 34.9 VOL% (35.7-47.0); Hemoglobin 11.2 GM/DL (12.0-16.0); Immature Granulocytes % 0.3 %; Immature Granulocytes Absolute 0.02 #; Lymphocytes # 0.7 10*3/uL (1.4-4.0); Lymphocytes % 10.5 % (21.3-54.2); Mean Corpuscular HGB Conc 32.1 GM/DL (32-36); Mean Corpuscular Hemoglobin 31 PG (27-34); Mean Corpuscular Volume 95.4 FL (87-102); Mean Platelet Volume 10.4 FL (9.6-12.0); Monocytes # 0.6 10*3/uL (0.11-0.8); Monocytes % 9.1 % (1.7-12.7); Neutrophils # 5.1 10*3/uL (1.4-7.4); Neutrophils % 74.2 % (38.7-73.9); Platelet Count 188 T/CUMM (130-400); Red Blood Count 3.66 MC/CUMM (3.8-5.5); Red Cell Distribution Width 14.8 % (9.3-17.3); White Blood Count 6.9 T/CUMM (4-12)
[2017-05-18 07:23] LABS: Calcium 8.1 MG/DL (8.5-10.1); Magnesium 1.6 MG/DL (1.8-2.4); Osmolality,Calculated 290.3 MOS/KG (273-304); Potassium 4.5 MMOL/L (3.5-5.1)
[2017-05-18] MEDS ORDERED: MAGNESIUM SULF RIDER 4 GM in PREMIX 1 EACH IV ONE (10:06)
[2017-05-18] MEDS: ASPIRIN EC 81 MG TABLET PO SCH (11:05)
[2017-05-18] MEDS: CARVEDILOL 6.25 MG TABLET PO SCH ×2 (11:05→20:37)
[2017-05-18] MEDS: metFORMIN 500 MG TABLET PO SCH ×2 (11:05→16:38)
[2017-05-18] MEDS: POTASSIUM CHLORIDE 10 MEQ TABLET PO SCH (11:06)
[2017-05-18] MEDS: DIGOXIN 0.125 MG TABLET PO SCH (11:06)
[2017-05-18] MEDS: LOSARTAN 25 MG TABLET PO SCH (11:06)
[2017-05-18] MEDS: FERROUS SULFATE 325 MG TABLET PO SCH ×2 (11:06→20:35)
[2017-05-18] MEDS: MAGNESIUM OXIDE 400 MG TABLET PO SCH (11:06)
[2017-05-18] MEDS: CYANOCOBALAMIN 500 MCG TABLET PO SCH (11:07)
[2017-05-18] MEDS: MELOXICAM 7.5 MG TABLET PO SCH (11:07)
[2017-05-18] MEDS: DABIGATRAN 150 MG CAPSULE PO SCH ×2 (11:07→20:35)
[2017-05-18] MEDS: NYSTATIN POWDER 15 GM BOTTLE TOP SCH ×2 (11:17→20:38)
[2017-05-18] MEDS: FUROSEMIDE 80 MG TABLET PO SCH (11:19)
[2017-05-18] MEDS: cefTRIAXone 1,000 MG in SYRINGE 1 EACH IV SCH (14:46)
[2017-05-18] MEDS: PHENYTOIN ER 100 MG CAPSULE PO SCH (20:36)
[2017-05-18] MEDS: ATORVASTATIN 40 MG TABLET PO SCH (20:36)
[2017-05-19] MEDS ORDERED: MAGNESIUM SULF RIDER 2 GM in PREMIX 1 EACH IV ONE (00:13)
[2017-05-19 05:18] LABS: Basophils # 0.1 10*3/uL (0.0-0.2); Basophils % 0.8 % (0.0-0.8); Eosinophils # 0.4 10*3/uL (0.0-0.87); Eosinophils % 6.4 % (0.00-10.9); Hemoglobin 10.7 GM/DL (12.0-16.0); Immature Granulocytes % 0.5 %; Immature Granulocytes Absolute 0.03 #; Lymphocytes # 0.8 10*3/uL (1.4-4.0); Lymphocytes % 12.1 % (21.3-54.2); Mean Corpuscular HGB Conc 31.5 GM/DL (32-36); Mean Corpuscular Hemoglobin 30 PG (27-34); Mean Platelet Volume 9.9 FL (9.6-12.0); Monocytes # 0.5 10*3/uL (0.11-0.8); Monocytes % 8.4 % (1.7-12.7); Neutrophils # 4.6 10*3/uL (1.4-7.4); Neutrophils % 71.8 % (38.7-73.9); Platelet Count 176 T/CUMM (130-400); Red Blood Count 3.54 MC/CUMM (3.8-5.5); Red Cell Distribution Width 14.6 % (9.3-17.3); White Blood Count 6.5 T/CUMM (4-12)
[2017-05-19 06:07] LABS: Calcium 8.2 MG/DL (8.5-10.1); Magnesium 2.4 MG/DL (1.8-2.4); Osmolality,Calculated 288.4 MOS/KG (273-304); Potassium 4.5 MMOL/L (3.5-5.1)
[2017-05-19] MEDS: LOSARTAN 25 MG TABLET PO SCH (09:23)
[2017-05-19] MEDS: CYANOCOBALAMIN 500 MCG TABLET PO SCH (09:23)
[2017-05-19] MEDS: MAGNESIUM OXIDE 400 MG TABLET PO SCH (09:23)
[2017-05-19] MEDS: DIGOXIN 0.125 MG TABLET PO SCH (09:23)
[2017-05-19] MEDS: DABIGATRAN 150 MG CAPSULE PO SCH (09:23)
[2017-05-19] MEDS: MELOXICAM 7.5 MG TABLET PO SCH (09:23)
[2017-05-19] MEDS: CARVEDILOL 6.25 MG TABLET PO SCH (09:23)
[2017-05-19] MEDS: FERROUS SULFATE 325 MG TABLET PO SCH (09:24)
[2017-05-19] MEDS: metFORMIN 500 MG TABLET PO SCH (09:24)
[2017-05-19] MEDS: NYSTATIN POWDER 15 GM BOTTLE TOP SCH (09:24)
[2017-05-19] MEDS: POTASSIUM CHLORIDE 10 MEQ TABLET PO SCH (09:24)
[2017-05-19] MEDS: ASPIRIN EC 81 MG TABLET PO SCH (09:24)
[2017-05-19 12:20] VITALS: BP 146/79
[2017-05-19] MEDS: cefTRIAXone 1,000 MG in SYRINGE 1 EACH IV SCH (15:06)
== END 2017-05-19 14:50 | DRG 308 ==
LOC: EDBD → EDUNIT# → N.ED 14:07 → N.EDINP 15:38 → N.TELES 16:45
PROVIDERS: ADMIT Internal Medicine; ATTEND Internal Medicine

== ENCOUNTER 2017-08-26 11:40 | Inpatient (IN) ==
[2017-08-26] MEDS ORDERED: SODIUM CHLORIDE 0.9% 1,000 ML IV STA ×2 (12:15→13:48)
[2017-08-26 12:28] LABS: Basophils # 0.1 10*3/uL (0.0-0.2); Basophils % 0.4 % (0.0-0.8); Hemoglobin 12.1 GM/DL (12.0-16.0); Immature Granulocytes % 0.5 %; Immature Granulocytes Absolute 0.09 #; Lymphocytes # 0.7 10*3/uL (1.4-4.0); Lymphocytes % 3.7 % (21.3-54.2); Mean Corpuscular Hemoglobin 29 PG (27-34); Mean Corpuscular Volume 94.7 FL (87-102); Mean Platelet Volume 10.5 FL (9.6-12.0); Monocytes # 1.8 10*3/uL (0.11-0.8); Monocytes % 9.7 % (1.7-12.7); Neutrophils # 15.9 10*3/uL (1.4-7.4); Neutrophils % 85.7 % (38.7-73.9); Platelet Count 238 T/CUMM (130-400); Red Blood Count 4.12 MC/CUMM (3.8-5.5); Red Cell Distribution Width 14.7 % (9.3-17.3); White Blood Count 18.5 T/CUMM (4-12)
[2017-08-26 12:34] LABS: Apearance,Urine Slightly Hazy (Clear); Bacteria,Urine Many /HPF (Few); Bilirubin,Urine Negative (Negative); Blood, Urine Small mg/dL (Negative); Glucose,Urine (UA) Negative (Negative); Ketones,Urine Negative (Negative); Mucus,Urine Occasional /LPF (Occasional); Nitrite,Urine Negative (Negative); Protein,Urine 100 MG/DL; Squamous Epithelial Cell,Urine Occasional /HPF (0-10); Urine Color Amber (Yellow); Urine Specific Gravity 1.018 (1.001-1.035); WBC,Urine 4 /HPF (0-6)
[2017-08-26 12:38] LABS: INR 1.3; PT Patient Result 13.7 SECS; Partial Thromboplastin Time 29.5 SECS (0-40)
[2017-08-26 12:47] LABS: Band Neutrophils 3 % (0-10); Giant Platelets Few; Hypochromasia 1+; Lymphocytes 2 % (20-55); Ovalocytes Slight; Platelet Estimate Adequate; Segmented Neutrophils 90 % (50-85); Total Cells Counted 100
[2017-08-26 12:53] LABS: Ammonia 57 UMOL/L (11-32)
[2017-08-26 12:58] LABS: Albumin 2.9 G/DL (3.4-5.0); Bilirubin,Total 1.6 MG/DL (0.2-1.0); Calcium 9.3 MG/DL (8.5-10.1); Osmolality,Calculated 302.7 MOS/KG (273-304); Potassium 3.9 MMOL/L (3.5-5.1); Total Protein 6.9 G/DL (6.4-8.3)
[2017-08-26 12:59] LABS: Lactic Acid 5.1 MMOL/L (0.4-2.0)
[2017-08-26] MEDS ORDERED: ONDANSETRON 4 MG/2 ML VIAL IV PRN (15:47)
[2017-08-26] MEDS ORDERED: DOCUSATE SODIUM 100 MG CAPSULE PO PRN (15:47)
[2017-08-26] MEDS ORDERED: MORPHINE 2 MG/1 ML SYRINGE IV PRN (15:47)
[2017-08-26] MEDS ORDERED: ACETAMINOPHEN 325 MG TABLET PO PRN (15:47)
[2017-08-26] MEDS ORDERED: cefTRIAXone 1,000 MG in SODIUM CHLORIDE 0.9% 100 ML IV SCH (16:00)
[2017-08-26] MEDS ORDERED: AZITHROMYCIN INJ 500 MG in SODIUM CHLORIDE 0.9% 250 ML IV SCH (16:00)
[2017-08-26] MEDS ORDERED: VANCOMYCIN INJ 1,000 MG in SODIUM CHLORIDE 0.9% 250 ML IV ONE (17:30)
[2017-08-26] MEDS: SODIUM CHLORIDE 0.9% 1,000 ML IV SCH (17:30)
[2017-08-26] MEDS: MEROPENEM 500 MG in SYRINGE 1 EACH IV SCH (17:31)
[2017-08-26] MEDS: LACTULOSE 20 GM/30 ML UDCUP PO SCH ×2 (17:34→20:34)
[2017-08-26 18:29] LABS: Troponin I Only 0.033 NG/ML (0.00-0.045)
[2017-08-26] MEDS ORDERED: GLUCAGON 1 MG VIAL IM PRN (19:22)
[2017-08-26] MEDS ORDERED: DEXTROSE 50% 25 GM/50 ML VIAL IV PRN (19:22)
[2017-08-26] MEDS ORDERED: DIGOXIN 0.5 MG/2 ML AMP IV ONE (19:39)
[2017-08-26] MEDS: INSULIN LISPRO 100 UNIT/ML SUBCUT SCH (20:34)
[2017-08-27] MEDS: LACTULOSE 20 GM/30 ML UDCUP PO SCH ×6 (00:58→21:17)
[2017-08-27] MEDS: SODIUM CHLORIDE 0.9% 1,000 ML IV SCH ×3 (00:58→18:38)
[2017-08-27] MEDS: MEROPENEM 500 MG in SYRINGE 1 EACH IV SCH ×2 (05:10→17:02)
[2017-08-27 05:16] LABS: Basophils # 0.1 10*3/uL (0.0-0.2); Basophils % 0.4 % (0.0-0.8); Eosinophils % 0.3 % (0.00-10.9); Hematocrit 29.6 VOL% (35.7-47.0); Hemoglobin 9.5 GM/DL (12.0-16.0); Immature Granulocytes % 0.4 %; Immature Granulocytes Absolute 0.05 #; Lymphocytes # 0.8 10*3/uL (1.4-4.0); Lymphocytes % 6.4 % (21.3-54.2); Mean Corpuscular HGB Conc 32.1 GM/DL (32-36); Mean Corpuscular Hemoglobin 30 PG (27-34); Mean Corpuscular Volume 93.7 FL (87-102); Mean Platelet Volume 10.7 FL (9.6-12.0); Monocytes # 1.2 10*3/uL (0.11-0.8); Monocytes % 10.1 % (1.7-12.7); Neutrophils # 9.9 10*3/uL (1.4-7.4); Neutrophils % 82.4 % (38.7-73.9); Platelet Count 171 T/CUMM (130-400); Red Blood Count 3.16 MC/CUMM (3.8-5.5); Red Cell Distribution Width 14.6 % (9.3-17.3)
[2017-08-27 05:50] LABS: Alanine Aminotransferase < 9 U/L (13-56); Albumin 2.3 G/DL (3.4-5.0); Alkaline Phosphatase 73 U/L (45-117); Aspartate Amino Transferase 23 U/L (0-37); Blood Urea Nitrogen 42 MG/DL (7-18); Calcium 8.2 MG/DL (8.5-10.1); Cholesterol 82 MG/DL (50-200); Glucose 122 MG/DL (74-106); HDL Cholesterol 37 MG/DL (40-60); Osmolality,Calculated 307.1 MOS/KG (273-304); Potassium 3.2 MMOL/L (3.5-5.1); Risk Ratio 2.22; Sodium 149 MMOL/L (136-145); Total Protein 5.2 G/DL (6.4-8.3); Triglycerides 72 MG/DL (2-150); VLDL CHOLESTEROL 14.4 MG/DL
[2017-08-27 05:54] LABS: Band Neutrophils 6 % (0-10); Burr Cells Slight; Giant Platelets Few; Hypochromasia 1+; Lymphocytes 3 % (20-55); Ovalocytes Slight; Platelet Estimate Normal; Segmented Neutrophils 84 % (50-85); Total Cells Counted 100
[2017-08-27] MEDS: INSULIN LISPRO 100 UNIT/ML SUBCUT SCH ×4 (07:28→21:51)
[2017-08-27] MEDS: POTASSIUM CHLORIDE 20 MEQ/15 ML UDCUP PER TUBE PRN ×4 (08:20→17:52)
[2017-08-27] MEDS: PANTOPRAZOLE 40 MG TABLET PO SCH (08:20)
[2017-08-27] MEDS: SILVER SULFADIAZINE 1% CREAM 400 GM JAR TOP SCH ×2 (16:08→16:31)
[2017-08-27] MEDS: BACITRACIN OINT 0.9 GM PACK TOP SCH (16:08)
[2017-08-27] MEDS: CARVEDILOL 6.25 MG TABLET PO SCH (17:02)
[2017-08-27] MEDS ORDERED: PHENYTOIN ER 100 MG CAPSULE PO SCH (21:00)
[2017-08-27] MEDS: FERROUS SULFATE 325 MG TABLET PO SCH (21:17)
[2017-08-27] MEDS: PHENYTOIN ER 100 MG CAPSULE PO SCH (21:17)
[2017-08-27] MEDS: ATORVASTATIN 40 MG TABLET PO SCH (21:17)
[2017-08-27] MEDS ORDERED: ALBUTEROL/IPRATROPIUM 3 ML NEB RESP TX PRN (23:21)
[2017-08-27] MEDS ORDERED: FUROSEMIDE 40 MG/4 ML VIAL IV ONE (23:30)
[2017-08-27] MEDS: SODIUM CHLORIDE 0.45% 1,000 ML IV SCH (23:33)
[2017-08-28] MEDS: LACTULOSE 20 GM/30 ML UDCUP PO SCH ×6 (00:26→22:20)
[2017-08-28] MEDS: MEROPENEM 500 MG in SYRINGE 1 EACH IV SCH ×2 (05:45→16:41)
[2017-08-28 06:28] LABS: Basophils # 0.1 10*3/uL (0.0-0.2); Basophils % 0.6 % (0.0-0.8); Eosinophils # 0.5 10*3/uL (0.0-0.87); Eosinophils % 4.1 % (0.00-10.9); Hematocrit 28.2 VOL% (35.7-47.0); Hemoglobin 8.7 GM/DL (12.0-16.0); Immature Granulocytes % 0.5 %; Immature Granulocytes Absolute 0.06 #; Lymphocytes # 0.7 10*3/uL (1.4-4.0); Lymphocytes % 5.9 % (21.3-54.2); Mean Corpuscular HGB Conc 30.9 GM/DL (32-36); Mean Corpuscular Hemoglobin 29 PG (27-34); Mean Corpuscular Volume 94.9 FL (87-102); Mean Platelet Volume 10.7 FL (9.6-12.0); Monocytes % 8.3 % (1.7-12.7); Neutrophils # 9.5 10*3/uL (1.4-7.4); Neutrophils % 80.6 % (38.7-73.9); Platelet Count 168 T/CUMM (130-400); Red Blood Count 2.97 MC/CUMM (3.8-5.5); Red Cell Distribution Width 14.4 % (9.3-17.3); White Blood Count 11.8 T/CUMM (4-12)
[2017-08-28 07:01] LABS: Ammonia 43 UMOL/L (11-32)
[2017-08-28 07:10] LABS: Alanine Aminotransferase < 9 U/L (13-56); Albumin 2.2 G/DL (3.4-5.0); Alkaline Phosphatase 75 U/L (45-117); Aspartate Amino Transferase 16 U/L (0-37); Blood Urea Nitrogen 31 MG/DL (7-18); Calcium 8.2 MG/DL (8.5-10.1); Glucose 125 MG/DL (74-106); Osmolality,Calculated 293.8 MOS/KG (273-304); Potassium 3.5 MMOL/L (3.5-5.1); Sodium 144 MMOL/L (136-145)
[2017-08-28] MEDS: INSULIN LISPRO 100 UNIT/ML SUBCUT SCH ×4 (07:50→22:20)
[2017-08-28] MEDS: MAGNESIUM OXIDE 400 MG TABLET PO SCH (08:45)
[2017-08-28] MEDS: POTASSIUM CHLORIDE 10 MEQ TABLET PO SCH (08:46)
[2017-08-28] MEDS: CYANOCOBALAMIN 500 MCG TABLET PO SCH (08:46)
[2017-08-28] MEDS: RIVAROXABAN 20 MG TABLET PO SCH (08:46)
[2017-08-28] MEDS: PHENYTOIN ER 100 MG CAPSULE PO SCH ×2 (08:46→22:20)
[2017-08-28] MEDS: PANTOPRAZOLE 40 MG TABLET PO SCH (08:46)
[2017-08-28] MEDS: BACITRACIN OINT 0.9 GM PACK TOP SCH (08:46)
[2017-08-28] MEDS: ASPIRIN EC 325 MG TABLET PO SCH (08:46)
[2017-08-28] MEDS: FERROUS SULFATE 325 MG TABLET PO SCH ×2 (08:46→22:20)
[2017-08-28] MEDS: CARVEDILOL 6.25 MG TABLET PO SCH ×2 (08:46→16:41)
[2017-08-28] MEDS: SILVER SULFADIAZINE 1% CREAM 400 GM JAR TOP SCH (08:47)
[2017-08-28] MEDS: DIGOXIN 0.125 MG TABLET PO SCH (13:15)
[2017-08-28] MEDS: SODIUM CHLORIDE 0.45% 1,000 ML IV SCH (18:29)
[2017-08-28] MEDS: ATORVASTATIN 40 MG TABLET PO SCH (22:19)
[2017-08-29] MEDS: LACTULOSE 20 GM/30 ML UDCUP PO SCH ×6 (00:47→21:02)
[2017-08-29] MEDS: MEROPENEM 500 MG in SYRINGE 1 EACH IV SCH ×2 (04:49→20:43)
[2017-08-29 05:14] LABS: Basophils % 0.4 % (0.0-0.8); Eosinophils # 0.5 10*3/uL (0.0-0.87); Eosinophils % 4.6 % (0.00-10.9); Hematocrit 28.7 VOL% (35.7-47.0); Immature Granulocytes % 0.5 %; Immature Granulocytes Absolute 0.06 #; Lymphocytes # 0.8 10*3/uL (1.4-4.0); Mean Corpuscular HGB Conc 31.4 GM/DL (32-36); Mean Corpuscular Hemoglobin 30 PG (27-34); Mean Corpuscular Volume 94.1 FL (87-102); Mean Platelet Volume 10.2 FL (9.6-12.0); Neutrophils # 8.6 10*3/uL (1.4-7.4); Neutrophils % 78.5 % (38.7-73.9); Platelet Count 183 T/CUMM (130-400); Red Blood Count 3.05 MC/CUMM (3.8-5.5); Red Cell Distribution Width 14.3 % (9.3-17.3)
[2017-08-29 05:45] LABS: Potassium 3.9 MMOL/L (3.5-5.1)
[2017-08-29] MEDS: CARVEDILOL 6.25 MG TABLET PO SCH ×2 (08:22→18:28)
[2017-08-29] MEDS: PHENYTOIN ER 100 MG CAPSULE PO SCH ×2 (08:22→21:03)
[2017-08-29] MEDS: RIVAROXABAN 20 MG TABLET PO SCH (08:22)
[2017-08-29] MEDS: FERROUS SULFATE 325 MG TABLET PO SCH ×2 (08:22→21:03)
[2017-08-29] MEDS: ASPIRIN EC 325 MG TABLET PO SCH (08:22)
[2017-08-29] MEDS: POTASSIUM CHLORIDE 10 MEQ TABLET PO SCH (08:22)
[2017-08-29] MEDS: MAGNESIUM OXIDE 400 MG TABLET PO SCH (08:22)
[2017-08-29] MEDS: PANTOPRAZOLE 40 MG TABLET PO SCH (08:22)
[2017-08-29] MEDS: CYANOCOBALAMIN 500 MCG TABLET PO SCH (08:27)
[2017-08-29] MEDS: INSULIN LISPRO 100 UNIT/ML SUBCUT SCH ×4 (10:00→21:03)
[2017-08-29] MEDS: BACITRACIN OINT 0.9 GM PACK TOP SCH (10:01)
[2017-08-29] MEDS: SILVER SULFADIAZINE 1% CREAM 400 GM JAR TOP SCH (10:02)
[2017-08-29] MEDS: DIGOXIN 0.125 MG TABLET PO SCH (15:35)
[2017-08-29] MEDS: ATORVASTATIN 40 MG TABLET PO SCH (21:03)
[2017-08-30] MEDS: LACTULOSE 20 GM/30 ML UDCUP PO SCH ×6 (00:22→20:51)
[2017-08-30] MEDS: PHENYTOIN ER 100 MG CAPSULE PO SCH ×2 (08:45→20:51)
[2017-08-30] MEDS: RIVAROXABAN 20 MG TABLET PO SCH (08:45)
[2017-08-30] MEDS: CARVEDILOL 6.25 MG TABLET PO SCH ×2 (08:45→16:45)
[2017-08-30] MEDS: MAGNESIUM OXIDE 400 MG TABLET PO SCH (08:45)
[2017-08-30] MEDS: POTASSIUM CHLORIDE 10 MEQ TABLET PO SCH (08:45)
[2017-08-30] MEDS: PANTOPRAZOLE 40 MG TABLET PO SCH (08:45)
[2017-08-30] MEDS: INSULIN LISPRO 100 UNIT/ML SUBCUT SCH ×4 (08:45→21:46)
[2017-08-30] MEDS: FERROUS SULFATE 325 MG TABLET PO SCH ×2 (08:45→20:51)
[2017-08-30] MEDS: ASPIRIN EC 325 MG TABLET PO SCH (08:45)
[2017-08-30] MEDS: MEROPENEM 500 MG in SYRINGE 1 EACH IV SCH ×2 (08:46→21:22)
[2017-08-30] MEDS: SODIUM CHLORIDE 0.45% 1,000 ML IV SCH (08:46)
[2017-08-30] MEDS: BACITRACIN OINT 0.9 GM PACK TOP SCH (08:46)
[2017-08-30] MEDS: CYANOCOBALAMIN 500 MCG TABLET PO SCH (08:47)
[2017-08-30] MEDS: SILVER SULFADIAZINE 1% CREAM 400 GM JAR TOP SCH (08:47)
[2017-08-30] MEDS: DIGOXIN 0.125 MG TABLET PO SCH (13:48)
[2017-08-30] MEDS: FUROSEMIDE 40 MG TABLET PO SCH (17:35)
[2017-08-30] MEDS: metFORMIN 500 MG TABLET PO SCH (17:35)
[2017-08-30] MEDS: ALBUTEROL/IPRATROPIUM 3 ML NEB RESP TX SCH (19:10)
[2017-08-30] MEDS: ATORVASTATIN 40 MG TABLET PO SCH (20:51)
[2017-08-31] MEDS: ALBUTEROL/IPRATROPIUM 3 ML NEB RESP TX SCH ×4 (01:22→21:14)
[2017-08-31] MEDS: LACTULOSE 20 GM/30 ML UDCUP PO SCH ×6 (02:33→21:06)
[2017-08-31 04:55] LABS: Basophils # 0.1 10*3/uL (0.0-0.2); Basophils % 0.4 % (0.0-0.8); Eosinophils # 0.3 10*3/uL (0.0-0.87); Eosinophils % 2.4 % (0.00-10.9); Hematocrit 28.2 VOL% (35.7-47.0); Hemoglobin 9.2 GM/DL (12.0-16.0); Immature Granulocytes % 0.9 %; Immature Granulocytes Absolute 0.11 #; Lymphocytes # 0.9 10*3/uL (1.4-4.0); Lymphocytes % 7.3 % (21.3-54.2); Mean Corpuscular HGB Conc 32.6 GM/DL (32-36); Mean Corpuscular Hemoglobin 30 PG (27-34); Mean Corpuscular Volume 90.7 FL (87-102); Mean Platelet Volume 10.6 FL (9.6-12.0); Monocytes # 1.9 10*3/uL (0.11-0.8); Monocytes % 16.5 % (1.7-12.7); Neutrophils # 8.4 10*3/uL (1.4-7.4); Neutrophils % 72.5 % (38.7-73.9); Platelet Count 206 T/CUMM (130-400); Red Blood Count 3.11 MC/CUMM (3.8-5.5); Red Cell Distribution Width 14.5 % (9.3-17.3); White Blood Count 11.6 T/CUMM (4-12)
[2017-08-31 05:25] LABS: Calcium 7.8 MG/DL (8.5-10.1); Osmolality,Calculated 283.7 MOS/KG (273-304); Potassium 4.2 MMOL/L (3.5-5.1)
[2017-08-31 05:33] LABS: Band Neutrophils 3 % (0-10); Eosinophils 2 % (0-10); Lymphocytes 15 % (20-55); Segmented Neutrophils 68 % (50-85); Total Cells Counted 100
[2017-08-31 05:34] LABS: Platelet Estimate Normal
[2017-08-31] MEDS: SODIUM CHLORIDE 0.45% 1,000 ML IV SCH (06:47)
[2017-08-31] MEDS: POTASSIUM CHLORIDE 10 MEQ TABLET PO SCH (08:36)
[2017-08-31] MEDS: PHENYTOIN ER 100 MG CAPSULE PO SCH ×2 (08:36→21:06)
[2017-08-31] MEDS: FERROUS SULFATE 325 MG TABLET PO SCH ×2 (08:36→21:06)
[2017-08-31] MEDS: PANTOPRAZOLE 40 MG TABLET PO SCH (08:36)
[2017-08-31] MEDS: CARVEDILOL 6.25 MG TABLET PO SCH ×2 (08:36→16:37)
[2017-08-31] MEDS: FUROSEMIDE 40 MG TABLET PO SCH ×2 (08:36→16:37)
[2017-08-31] MEDS: SILVER SULFADIAZINE 1% CREAM 400 GM JAR TOP SCH (08:37)
[2017-08-31] MEDS: BACITRACIN OINT 0.9 GM PACK TOP SCH (08:37)
[2017-08-31] MEDS: RIVAROXABAN 20 MG TABLET PO SCH (08:37)
[2017-08-31] MEDS: MEROPENEM 500 MG in SYRINGE 1 EACH IV SCH ×2 (08:37→20:40)
[2017-08-31] MEDS: CYANOCOBALAMIN 500 MCG TABLET PO SCH (08:37)
[2017-08-31] MEDS: ASPIRIN EC 325 MG TABLET PO SCH (08:37)
[2017-08-31] MEDS: metFORMIN 500 MG TABLET PO SCH ×2 (08:37→16:37)
[2017-08-31] MEDS: MAGNESIUM OXIDE 400 MG TABLET PO SCH (08:37)
[2017-08-31] MEDS: INSULIN LISPRO 100 UNIT/ML SUBCUT SCH ×4 (08:38→21:55)
[2017-08-31] MEDS: DIGOXIN 0.125 MG TABLET PO SCH (14:02)
[2017-08-31] MEDS: ATORVASTATIN 40 MG TABLET PO SCH (21:06)
[2017-09-01] MEDS: ALBUTEROL/IPRATROPIUM 3 ML NEB RESP TX SCH ×4 (01:23→19:11)
[2017-09-01] MEDS: LACTULOSE 20 GM/30 ML UDCUP PO SCH ×7 (01:39→23:17)
[2017-09-01] MEDS: PHENYTOIN ER 100 MG CAPSULE PO SCH ×2 (09:50→21:36)
[2017-09-01] MEDS: metFORMIN 500 MG TABLET PO SCH ×2 (09:50→17:41)
[2017-09-01] MEDS: POTASSIUM CHLORIDE 10 MEQ TABLET PO SCH (09:50)
[2017-09-01] MEDS: MEROPENEM 500 MG in SYRINGE 1 EACH IV SCH ×2 (09:50→21:36)
[2017-09-01] MEDS: MAGNESIUM OXIDE 400 MG TABLET PO SCH (09:50)
[2017-09-01] MEDS: ASPIRIN EC 325 MG TABLET PO SCH (09:50)
[2017-09-01] MEDS: BACITRACIN OINT 0.9 GM PACK TOP SCH (09:50)
[2017-09-01] MEDS: FUROSEMIDE 40 MG TABLET PO SCH ×2 (09:50→17:41)
[2017-09-01] MEDS: RIVAROXABAN 20 MG TABLET PO SCH (09:50)
[2017-09-01] MEDS: FERROUS SULFATE 325 MG TABLET PO SCH ×2 (09:50→21:36)
[2017-09-01] MEDS: PANTOPRAZOLE 40 MG TABLET PO SCH (09:50)
[2017-09-01] MEDS: CYANOCOBALAMIN 500 MCG TABLET PO SCH (09:50)
[2017-09-01] MEDS: CARVEDILOL 6.25 MG TABLET PO SCH ×2 (09:50→17:42)
[2017-09-01] MEDS: SILVER SULFADIAZINE 1% CREAM 400 GM JAR TOP SCH (10:23)
[2017-09-01] MEDS: INSULIN LISPRO 100 UNIT/ML SUBCUT SCH ×4 (10:23→21:37)
[2017-09-01] MEDS ORDERED: TUBERCULIN SKIN TEST 0.1 ML SYRINGE INTRADERM ONE (13:00)
[2017-09-01] MEDS: DIGOXIN 0.125 MG TABLET PO SCH (13:25)
[2017-09-01] MEDS: ATORVASTATIN 40 MG TABLET PO SCH (21:36)
[2017-09-01 22:29] LABS: Apearance,Urine Slightly Hazy (Clear); Bacteria,Urine Moderate /HPF (Few); Bilirubin,Urine Negative (Negative); Blood, Urine Moderate mg/dL (Negative); Glucose,Urine (UA) Negative (Negative); Ketones,Urine Negative (Negative); Mucus,Urine Occasional /LPF (Occasional); Nitrite,Urine Negative (Negative); Protein,Urine Negative; RBC,Urine <1 /HPF (0-4); Squamous Epithelial Cell,Urine Occasional /HPF (0-10); Urine Color Yellow (Yellow); Urine Specific Gravity 1.006 (1.001-1.035); Urine Urobilinogen < 2.0 EU/DL (0.2-1.0); WBC,Urine 2 /HPF (0-6)
[2017-09-02] MEDS: ALBUTEROL/IPRATROPIUM 3 ML NEB RESP TX SCH ×4 (00:34→20:00)
[2017-09-02] MEDS: LACTULOSE 20 GM/30 ML UDCUP PO SCH ×6 (03:36→21:07)
[2017-09-02 05:11] LABS: Basophils # 0.1 10*3/uL (0.0-0.2); Basophils % 0.5 % (0.0-0.8); Eosinophils # 0.3 10*3/uL (0.0-0.87); Eosinophils % 2.7 % (0.00-10.9); Hematocrit 28.5 VOL% (35.7-47.0); Hemoglobin 9.1 GM/DL (12.0-16.0); Immature Granulocytes % 0.6 %; Immature Granulocytes Absolute 0.07 #; Lymphocytes % 8.7 % (21.3-54.2); Mean Corpuscular HGB Conc 31.9 GM/DL (32-36); Mean Corpuscular Hemoglobin 29 PG (27-34); Mean Corpuscular Volume 91.3 FL (87-102); Mean Platelet Volume 10.3 FL (9.6-12.0); Monocytes # 1.3 10*3/uL (0.11-0.8); Monocytes % 12.1 % (1.7-12.7); Neutrophils # 8.2 10*3/uL (1.4-7.4); Neutrophils % 75.4 % (38.7-73.9); Platelet Count 246 T/CUMM (130-400); Red Blood Count 3.12 MC/CUMM (3.8-5.5); White Blood Count 10.9 T/CUMM (4-12)
[2017-09-02 05:43] LABS: Calcium 8.1 MG/DL (8.5-10.1); Osmolality,Calculated 282.5 MOS/KG (273-304); Potassium 3.8 MMOL/L (3.5-5.1)
[2017-09-02] MEDS: INSULIN LISPRO 100 UNIT/ML SUBCUT SCH ×4 (07:31→21:07)
[2017-09-02] MEDS: CYANOCOBALAMIN 500 MCG TABLET PO SCH (08:47)
[2017-09-02] MEDS: MAGNESIUM OXIDE 400 MG TABLET PO SCH (08:47)
[2017-09-02] MEDS: metFORMIN 500 MG TABLET PO SCH ×2 (08:48→17:13)
[2017-09-02] MEDS: POTASSIUM CHLORIDE 10 MEQ TABLET PO SCH (08:48)
[2017-09-02] MEDS: ASPIRIN EC 325 MG TABLET PO SCH (08:48)
[2017-09-02] MEDS: MEROPENEM 500 MG in SYRINGE 1 EACH IV SCH (08:48)
[2017-09-02] MEDS: PHENYTOIN ER 100 MG CAPSULE PO SCH ×2 (08:48→21:06)
[2017-09-02] MEDS: FERROUS SULFATE 325 MG TABLET PO SCH ×2 (08:48→21:06)
[2017-09-02] MEDS: CARVEDILOL 6.25 MG TABLET PO SCH ×2 (08:48→17:13)
[2017-09-02] MEDS: FUROSEMIDE 40 MG TABLET PO SCH ×2 (08:48→17:12)
[2017-09-02] MEDS: PANTOPRAZOLE 40 MG TABLET PO SCH (08:48)
[2017-09-02] MEDS: RIVAROXABAN 20 MG TABLET PO SCH (08:48)
[2017-09-02] MEDS: BACITRACIN OINT 0.9 GM PACK TOP SCH (08:58)
[2017-09-02] MEDS: SILVER SULFADIAZINE 1% CREAM 400 GM JAR TOP SCH (08:58)
[2017-09-02] MEDS: DIGOXIN 0.125 MG TABLET PO SCH (13:36)
[2017-09-02] MEDS: ATORVASTATIN 40 MG TABLET PO SCH (21:06)
[2017-09-03] MEDS: LACTULOSE 20 GM/30 ML UDCUP PO SCH ×4 (00:48→13:14)
[2017-09-03] MEDS: ALBUTEROL/IPRATROPIUM 3 ML NEB RESP TX SCH ×2 (01:00→07:40)
[2017-09-03] MEDS: BACITRACIN OINT 0.9 GM PACK TOP SCH (09:01)
[2017-09-03] MEDS: FUROSEMIDE 40 MG TABLET PO SCH (09:01)
[2017-09-03] MEDS: POTASSIUM CHLORIDE 10 MEQ TABLET PO SCH (09:02)
[2017-09-03] MEDS: metFORMIN 500 MG TABLET PO SCH (09:02)
[2017-09-03] MEDS: RIVAROXABAN 20 MG TABLET PO SCH (09:02)
[2017-09-03] MEDS: CYANOCOBALAMIN 500 MCG TABLET PO SCH (09:02)
[2017-09-03] MEDS: ASPIRIN EC 325 MG TABLET PO SCH (09:02)
[2017-09-03] MEDS: MAGNESIUM OXIDE 400 MG TABLET PO SCH (09:03)
[2017-09-03] MEDS: PANTOPRAZOLE 40 MG TABLET PO SCH (09:03)
[2017-09-03] MEDS: CARVEDILOL 6.25 MG TABLET PO SCH (09:03)
[2017-09-03] MEDS: PHENYTOIN ER 100 MG CAPSULE PO SCH (09:03)
[2017-09-03] MEDS: INSULIN LISPRO 100 UNIT/ML SUBCUT SCH ×2 (09:03→13:13)
[2017-09-03] MEDS: FERROUS SULFATE 325 MG TABLET PO SCH (09:08)
[2017-09-03] MEDS: SILVER SULFADIAZINE 1% CREAM 400 GM JAR TOP SCH (10:36)
[2017-09-03 11:58] VITALS: BP 147/67
[2017-09-03] MEDS: DIGOXIN 0.125 MG TABLET PO SCH (13:14)
== END 2017-09-03 14:40 | DRG 871 ==
LOC: EDUNIT# → N.ED 11:40 → SUATTDRO 12:47 → N.EDINP 12:47 → N.CC 15:54 → N.2E 08-28 14:44
PROVIDERS: ADMIT Internal Medicine; ATTEND Family Medicine

== ENCOUNTER 2017-10-03 00:19 | Inpatient (IN) ==
[2017-10-03] MEDS ORDERED: SODIUM BICARB INJ 100 MEQ in SODIUM CHLORIDE 0.9% 1,000 ML IV STA (00:59)
[2017-10-03 01:34] LABS: INR 1.3; PT Patient Result 13.6 SECS
[2017-10-03 01:36] LABS: Amorphous Crystals,Urine Occasional /HPF (Few); Apearance,Urine CLOUDY (Clear); Bacteria,Urine Moderate /HPF (Few); Blood, Urine Negative (Negative); Glucose,Urine (UA) Negative (Negative); Hyaline Casts,Urine 20 /LPF (0-3); Ketones,Urine Negative (Negative); Mucus,Urine Occasional /LPF (Occasional); Nitrite,Urine Negative (Negative); Protein,Urine 100 MG/DL; RBC,Urine 2 /HPF (0-4); Squamous Epithelial Cell,Urine Occasional /HPF (0-10); Urine Color Amber (Yellow); Urine Specific Gravity 1.015 (1.001-1.035); WBC,Urine 5 /HPF (0-6)
[2017-10-03 01:37] LABS: Bilirubin,Urine Small mg/dL (Negative)
[2017-10-03 01:45] LABS: Calcium 9.5 MG/DL (8.5-10.1); Osmolality,Calculated 342.6 MOS/KG (273-304); Potassium 4.1 MMOL/L (3.5-5.1)
[2017-10-03 01:50] LABS: Basophils # 0.1 10*3/uL (0.0-0.2); Basophils % 0.3 % (0.0-0.8); Hematocrit 43.3 VOL% (35.7-47.0); Immature Granulocytes % 0.7 %; Immature Granulocytes Absolute 0.16 #; Lymphocytes # 0.9 10*3/uL (1.4-4.0); Lymphocytes % 3.9 % (21.3-54.2); Mean Corpuscular HGB Conc 32.3 GM/DL (32-36); Mean Corpuscular Hemoglobin 28 PG (27-34); Mean Corpuscular Volume 87.7 FL (87-102); Mean Platelet Volume 11.5 FL (9.6-12.0); Monocytes # 1.5 10*3/uL (0.11-0.8); Monocytes % 6.8 % (1.7-12.7); Neutrophils # 19.4 10*3/uL (1.4-7.4); Neutrophils % 88.3 % (38.7-73.9); Platelet Count 275 T/CUMM (130-400); Red Blood Count 4.94 MC/CUMM (3.8-5.5); Red Cell Distribution Width 15.2 % (9.3-17.3)
[2017-10-03 01:53] LABS: Amylase 223 U/L (25-115)
[2017-10-03 02:01] LABS: Troponin I Only 0.113 NG/ML (0.00-0.045)
[2017-10-03] MEDS ORDERED: DEXTROSE 50% 25 GM/50 ML VIAL IV PRN (02:22)
[2017-10-03] MEDS ORDERED: GLUCAGON 1 MG VIAL IM PRN (02:22)
[2017-10-03] MEDS ORDERED: DILTIAZEM 50 MG/10 ML VIAL IV STA (02:26)
[2017-10-03] MEDS ORDERED: DILTIAZEM 50 MG/10 ML VIAL IV ONE (02:27)
[2017-10-03 02:29] LABS: Anisocytosis 1+; Band Neutrophils 10 % (0-10); Lymphocytes 3 % (20-55); Poikilocytosis 1+; Polychromasia Slight; Segmented Neutrophils 87 % (50-85); Total Cells Counted 100
[2017-10-03] MEDS: SODIUM CHLORIDE 0.9% 1,000 ML IV SCH ×2 (04:07→16:56)
[2017-10-03] MEDS ORDERED: MECLIZINE 25 MG TABLET PO PRN (06:03)
[2017-10-03] MEDS ORDERED: METOPROLOL TARTRATE 5 MG/5 ML VIAL IV PRN (06:06)
[2017-10-03 08:38] LABS: Basophils # 0.1 10*3/uL (0.0-0.2); Basophils % 0.3 % (0.0-0.8); Eosinophils % 0.1 % (0.00-10.9); Hematocrit 36.6 VOL% (35.7-47.0); Hemoglobin 12.1 GM/DL (12.0-16.0); Immature Granulocytes % 0.7 %; Immature Granulocytes Absolute 0.14 #; Lymphocytes # 0.8 10*3/uL (1.4-4.0); Lymphocytes % 4.4 % (21.3-54.2); Mean Corpuscular HGB Conc 33.1 GM/DL (32-36); Mean Corpuscular Hemoglobin 28 PG (27-34); Mean Corpuscular Volume 85.5 FL (87-102); Mean Platelet Volume 11.1 FL (9.6-12.0); Monocytes # 1.4 10*3/uL (0.11-0.8); Monocytes % 7.4 % (1.7-12.7); Neutrophils # 16.5 10*3/uL (1.4-7.4); Neutrophils % 87.1 % (38.7-73.9); Platelet Count 212 T/CUMM (130-400); Red Blood Count 4.28 MC/CUMM (3.8-5.5); Red Cell Distribution Width 15.3 % (9.3-17.3)
[2017-10-03 08:58] LABS: Hypochromasia 1+; Lymphocytes 3 % (20-55); Microcytosis 1+; Ovalocytes Few; Segmented Neutrophils 93 % (50-85); Total Cells Counted 100
[2017-10-03 08:59] LABS: Platelet Estimate Normal
[2017-10-03 09:04] LABS: Calcium 8.7 MG/DL (8.5-10.1)
[2017-10-03 09:05] LABS: Osmolality,Calculated 337.4 MOS/KG (273-304); Potassium 3.3 MMOL/L (3.5-5.1)
[2017-10-03] MEDS: INSULIN LISPRO 100 UNIT/ML SUBCUT SCH ×4 (10:13→21:41)
[2017-10-03] MEDS: RIVAROXABAN 20 MG TABLET PO SCH (10:14)
[2017-10-03] MEDS: CEFTAROLINE 300 MG in SODIUM CHLORIDE 0.9% 100 ML IV SCH ×2 (10:14→21:37)
[2017-10-03] MEDS: MAGNESIUM OXIDE 400 MG TABLET PO SCH (10:14)
[2017-10-03] MEDS: DIGOXIN 0.125 MG TABLET PO SCH (10:14)
[2017-10-03] MEDS: ASPIRIN EC 325 MG TABLET PO SCH (10:14)
[2017-10-03] MEDS: CYANOCOBALAMIN 500 MCG TABLET PO SCH (10:14)
[2017-10-03] MEDS: CARVEDILOL 6.25 MG TABLET PO SCH ×2 (10:14→21:38)
[2017-10-03] MEDS: FERROUS SULFATE 325 MG TABLET PO SCH ×2 (10:16→21:38)
[2017-10-03] MEDS: SILVER SULFADIAZINE 1% CREAM 400 GM JAR TOP SCH (20:30)
[2017-10-03] MEDS: ATORVASTATIN 40 MG TABLET PO SCH (21:38)
[2017-10-04 06:27] LABS: Basophils % 0.3 % (0.0-0.8); Eosinophils # 0.1 10*3/uL (0.0-0.87); Eosinophils % 0.4 % (0.00-10.9); Hematocrit 29.7 VOL% (35.7-47.0); Immature Granulocytes % 0.4 %; Immature Granulocytes Absolute 0.05 #; Lymphocytes # 0.9 10*3/uL (1.4-4.0); Lymphocytes % 7.1 % (21.3-54.2); Mean Corpuscular HGB Conc 33.7 GM/DL (32-36); Mean Corpuscular Hemoglobin 29 PG (27-34); Mean Corpuscular Volume 86.6 FL (87-102); Mean Platelet Volume 11.6 FL (9.6-12.0); Monocytes % 7.4 % (1.7-12.7); Neutrophils # 11.2 10*3/uL (1.4-7.4); Neutrophils % 84.4 % (38.7-73.9); Platelet Count 158 T/CUMM (130-400); Red Blood Count 3.43 MC/CUMM (3.8-5.5); Red Cell Distribution Width 15.2 % (9.3-17.3); White Blood Count 13.2 T/CUMM (4-12)
[2017-10-04 06:56] LABS: Calcium 8.4 MG/DL (8.5-10.1); Osmolality,Calculated 325.3 MOS/KG (273-304); Potassium 2.9 MMOL/L (3.5-5.1)
[2017-10-04] MEDS: INSULIN LISPRO 100 UNIT/ML SUBCUT SCH ×4 (08:32→21:59)
[2017-10-04] MEDS ORDERED: POTASSIUM CHLORIDE 20 MEQ TABLET PO ONE ×2 (09:15→13:00)
[2017-10-04] MEDS: MAGNESIUM OXIDE 400 MG TABLET PO SCH (10:24)
[2017-10-04] MEDS: DIGOXIN 0.125 MG TABLET PO SCH (10:24)
[2017-10-04] MEDS: CYANOCOBALAMIN 500 MCG TABLET PO SCH (10:24)
[2017-10-04] MEDS: CARVEDILOL 6.25 MG TABLET PO SCH ×2 (10:25→21:59)
[2017-10-04] MEDS: FERROUS SULFATE 325 MG TABLET PO SCH ×2 (10:25→21:59)
[2017-10-04] MEDS: RIVAROXABAN 20 MG TABLET PO SCH (10:25)
[2017-10-04] MEDS: ASPIRIN EC 325 MG TABLET PO SCH (10:26)
[2017-10-04] MEDS: SILVER SULFADIAZINE 1% CREAM 400 GM JAR TOP SCH ×2 (10:28→22:07)
[2017-10-04] MEDS: CEFTAROLINE 300 MG in SODIUM CHLORIDE 0.9% 100 ML IV SCH ×2 (10:31→20:12)
[2017-10-04] MEDS: DEXTROSE 5% 1,000 ML IV SCH ×3 (10:35→23:15)
[2017-10-04] MEDS: SODIUM CHLORIDE 0.9% 1,000 ML IV SCH (16:11)
[2017-10-04] MEDS: ATORVASTATIN 40 MG TABLET PO SCH (21:59)
[2017-10-05 07:00] LABS: Basophils % 0.3 % (0.0-0.8); Eosinophils # 0.2 10*3/uL (0.0-0.87); Eosinophils % 1.6 % (0.00-10.9); Hemoglobin 9.8 GM/DL (12.0-16.0); Immature Granulocytes % 0.7 %; Immature Granulocytes Absolute 0.07 #; Lymphocytes # 0.9 10*3/uL (1.4-4.0); Lymphocytes % 9.3 % (21.3-54.2); Mean Corpuscular HGB Conc 32.7 GM/DL (32-36); Mean Corpuscular Hemoglobin 29 PG (27-34); Mean Corpuscular Volume 88.2 FL (87-102); Mean Platelet Volume 11.5 FL (9.6-12.0); Monocytes % 10.1 % (1.7-12.7); Neutrophils # 7.7 10*3/uL (1.4-7.4); Platelet Count 153 T/CUMM (130-400); Red Cell Distribution Width 15.1 % (9.3-17.3); White Blood Count 9.9 T/CUMM (4-12)
[2017-10-05 07:06] LABS: Calcium 8.1 MG/DL (8.5-10.1); Osmolality,Calculated 307.8 MOS/KG (273-304); Potassium 3.7 MMOL/L (3.5-5.1)
[2017-10-05] MEDS: DEXTROSE 5% 1,000 ML IV SCH ×4 (07:29→21:37)
[2017-10-05] MEDS: INSULIN LISPRO 100 UNIT/ML SUBCUT SCH ×4 (08:19→21:35)
[2017-10-05] MEDS: ASPIRIN EC 325 MG TABLET PO SCH (08:20)
[2017-10-05] MEDS: DIGOXIN 0.125 MG TABLET PO SCH (08:20)
[2017-10-05] MEDS: MAGNESIUM OXIDE 400 MG TABLET PO SCH (08:20)
[2017-10-05] MEDS: CYANOCOBALAMIN 500 MCG TABLET PO SCH (08:20)
[2017-10-05] MEDS: FERROUS SULFATE 325 MG TABLET PO SCH ×2 (08:20→21:29)
[2017-10-05] MEDS: CARVEDILOL 6.25 MG TABLET PO SCH ×2 (08:20→21:29)
[2017-10-05] MEDS: RIVAROXABAN 20 MG TABLET PO SCH (08:20)
[2017-10-05] MEDS: SILVER SULFADIAZINE 1% CREAM 400 GM JAR TOP SCH ×2 (08:21→21:36)
[2017-10-05] MEDS: CEFTAROLINE 300 MG in SODIUM CHLORIDE 0.9% 100 ML IV SCH ×2 (10:35→18:40)
[2017-10-05] MEDS ORDERED: ACETAMINOPHEN 325 MG TABLET PO PRN (16:20)
[2017-10-05] MEDS: ATORVASTATIN 40 MG TABLET PO SCH (21:29)
[2017-10-06 06:23] LABS: Basophils # 0.1 10*3/uL (0.0-0.2); Basophils % 0.6 % (0.0-0.8); Eosinophils # 0.3 10*3/uL (0.0-0.87); Hematocrit 31.2 VOL% (35.7-47.0); Hemoglobin 9.9 GM/DL (12.0-16.0); Immature Granulocytes % 0.7 %; Immature Granulocytes Absolute 0.07 #; Lymphocytes # 0.7 10*3/uL (1.4-4.0); Lymphocytes % 7.5 % (21.3-54.2); Mean Corpuscular HGB Conc 31.7 GM/DL (32-36); Mean Corpuscular Hemoglobin 28 PG (27-34); Mean Corpuscular Volume 88.1 FL (87-102); Mean Platelet Volume 11.5 FL (9.6-12.0); Monocytes # 0.9 10*3/uL (0.11-0.8); Monocytes % 9.7 % (1.7-12.7); Neutrophils # 7.6 10*3/uL (1.4-7.4); Neutrophils % 78.5 % (38.7-73.9); Platelet Count 161 T/CUMM (130-400); Red Blood Count 3.54 MC/CUMM (3.8-5.5); Red Cell Distribution Width 14.7 % (9.3-17.3); White Blood Count 9.7 T/CUMM (4-12)
[2017-10-06] MEDS: DEXTROSE 5% 1,000 ML IV SCH ×3 (06:57→22:07)
[2017-10-06 06:59] LABS: Calcium 7.9 MG/DL (8.5-10.1); Osmolality,Calculated 292.4 MOS/KG (273-304); Potassium 3.7 MMOL/L (3.5-5.1)
[2017-10-06] MEDS: INSULIN LISPRO 100 UNIT/ML SUBCUT SCH ×4 (08:05→22:06)
[2017-10-06] MEDS: CEFTAROLINE 300 MG in SODIUM CHLORIDE 0.9% 100 ML IV SCH ×2 (08:09→22:05)
[2017-10-06] MEDS: RIVAROXABAN 20 MG TABLET PO SCH (08:14)
[2017-10-06] MEDS ORDERED: TUBERCULIN SKIN TEST 0.1 ML SYRINGE INTRADERM ONE (08:17)
[2017-10-06] MEDS: CYANOCOBALAMIN 500 MCG TABLET PO SCH (08:20)
[2017-10-06] MEDS: DIGOXIN 0.125 MG TABLET PO SCH (08:20)
[2017-10-06] MEDS: MAGNESIUM OXIDE 400 MG TABLET PO SCH (08:20)
[2017-10-06] MEDS: CARVEDILOL 6.25 MG TABLET PO SCH (08:20)
[2017-10-06] MEDS: ASPIRIN EC 325 MG TABLET PO SCH (08:20)
[2017-10-06] MEDS: FERROUS SULFATE 325 MG TABLET PO SCH ×2 (08:20→22:06)
[2017-10-06] MEDS: SILVER SULFADIAZINE 1% CREAM 400 GM JAR TOP SCH ×2 (08:27→22:07)
[2017-10-06] MEDS: ATORVASTATIN 40 MG TABLET PO SCH (22:06)
[2017-10-07 06:00] LABS: Basophils % 0.3 % (0.0-0.8); Eosinophils # 0.4 10*3/uL (0.0-0.87); Eosinophils % 4.5 % (0.00-10.9); Hematocrit 31.8 VOL% (35.7-47.0); Hemoglobin 10.6 GM/DL (12.0-16.0); Immature Granulocytes % 0.6 %; Immature Granulocytes Absolute 0.05 #; Lymphocytes # 0.8 10*3/uL (1.4-4.0); Lymphocytes % 9.7 % (21.3-54.2); Mean Corpuscular HGB Conc 33.3 GM/DL (32-36); Mean Corpuscular Hemoglobin 28 PG (27-34); Mean Platelet Volume 10.7 FL (9.6-12.0); Neutrophils # 6.4 10*3/uL (1.4-7.4); Neutrophils % 73.9 % (38.7-73.9); Platelet Count 183 T/CUMM (130-400); Red Blood Count 3.74 MC/CUMM (3.8-5.5); Red Cell Distribution Width 14.9 % (9.3-17.3); White Blood Count 8.6 T/CUMM (4-12)
[2017-10-07 06:40] LABS: Calcium 8.2 MG/DL (8.5-10.1); Free T4 (Free Thyroxine) 1.45 NG/DL (0.76-1.46); Potassium 3.9 MMOL/L (3.5-5.1); T4 (Thyroxine) 8.7 UG/DL (4.7-13.3); Thyroid Stimulating Hormone 0.049 uIU/ml (0.358-3.74)
[2017-10-07] MEDS ORDERED: MAGNESIUM SULF RIDER 2 GM in PREMIX 1 EACH IV ONE (08:11)
[2017-10-07] MEDS: INSULIN LISPRO 100 UNIT/ML SUBCUT SCH ×2 (09:15→12:41)
[2017-10-07] MEDS: CEFTAROLINE 300 MG in SODIUM CHLORIDE 0.9% 100 ML IV SCH (09:15)
[2017-10-07] MEDS: DEXTROSE 5% 1,000 ML IV SCH (09:15)
[2017-10-07] MEDS: DIGOXIN 0.125 MG TABLET PO SCH (09:16)
[2017-10-07] MEDS: CYANOCOBALAMIN 500 MCG TABLET PO SCH (09:17)
[2017-10-07] MEDS: RIVAROXABAN 20 MG TABLET PO SCH (09:17)
[2017-10-07] MEDS: ASPIRIN EC 325 MG TABLET PO SCH (09:17)
[2017-10-07] MEDS: MAGNESIUM OXIDE 400 MG TABLET PO SCH (09:17)
[2017-10-07] MEDS: FERROUS SULFATE 325 MG TABLET PO SCH (09:17)
[2017-10-07] MEDS: SILVER SULFADIAZINE 1% CREAM 400 GM JAR TOP SCH (09:18)
[2017-10-07 12:02] VITALS: BP 175/92
== END 2017-10-07 14:30 | DRG 872 ==
LOC: EDBD → EDUNIT# → N.ED 00:19 → N.EDINP 02:25 → N.5E 03:45
PROVIDERS: ADMIT Internal Medicine Infectious Disease; ATTEND Internal Medicine Infectious Disease

== ENCOUNTER 2018-12-23 22:09 | Inpatient (IN) ==
[2018-12-24 00:56] LABS: Basophils # 0.1 10*3/uL (0.0-0.2); Basophils % 0.6 % (0.0-0.8); Eosinophils # 0.4 10*3/uL (0.0-0.87); Eosinophils % 4.7 % (0.00-10.9); Hematocrit 32.3 VOL% (35.7-47.0); Hemoglobin 10.5 GM/DL (12.0-16.0); Immature Granulocytes % 0.5 %; Immature Granulocytes Absolute 0.04 #; Lymphocytes # 0.9 10*3/uL (1.4-4.0); Lymphocytes % 10.1 % (21.3-54.2); Mean Corpuscular HGB Conc 32.5 GM/DL (32-36); Mean Corpuscular Volume 90.7 FL (87-102); Mean Platelet Volume 10.8 FL (9.6-12.0); Monocytes % 7.3 % (1.7-12.7); Neutrophils % 76.8 % (38.7-73.9); Platelet Count 147 T/CUMM (130-400); Red Blood Count 3.56 MC/CUMM (3.8-5.5); Red Cell Distribution Width 13.6 % (9.3-17.3); White Blood Count 8.7 T/CUMM (4-12)
[2018-12-24 01:06] LABS: Apearance,Urine Slightly Hazy (Clear); Bilirubin,Urine Negative (Negative); Blood, Urine Small mg/dL (Negative); Glucose,Urine (UA) Negative (Negative); Ketones,Urine Negative (Negative); Nitrite,Urine Negative (Negative); Protein,Urine Negative; Squamous Epithelial Cell,Urine Occasional /HPF (0-10); Urine Color Yellow (Yellow); Urine Specific Gravity 1.004 (1.001-1.035); Urine Urobilinogen < 2.0 EU/DL (0.2-1.0); WBC,Urine 20 /HPF (0-6)
[2018-12-24 01:35] LABS: Alanine Aminotransferase 12 U/L (13-56); Albumin 3.4 G/DL (3.4-5.0); Alkaline Phosphatase 200 U/L (45-117); Aspartate Amino Transferase 24 U/L (0-37); Blood Urea Nitrogen 50 MG/DL (7-18); Calcium 9.2 MG/DL (8.5-10.1); Glucose 93 MG/DL (74-106); Osmolality,Calculated 269.1 MOS/KG (273-304); Total Protein 7.6 G/DL (6.4-8.3)
[2018-12-24] MEDS ORDERED: MAGNESIUM SULF RIDER 2 GM in PREMIX 1 EACH IV STA (01:44)
[2018-12-24] MEDS ORDERED: cefTRIAXone 1,000 MG in SODIUM CHLORIDE 0.9% 100 ML IV STA (01:45)
[2018-12-24] MEDS ORDERED: ENOXAPARIN 100 MG/ML SYRINGE SUBCUT STA (01:49)
[2018-12-24] MEDS ORDERED: SODIUM CHLORIDE 0.9% 500 ML IV STA (01:50)
[2018-12-24] MEDS ORDERED: BISACODYL 5 MG TABLET PO PRN (02:07)
[2018-12-24] MEDS ORDERED: ONDANSETRON 4 MG/2 ML VIAL IV PRN (02:07)
[2018-12-24] MEDS ORDERED: guaiFENesin/DM ER 600-30 MG TABLET PO PRN (02:07)
[2018-12-24] MEDS ORDERED: diphenhydrAMINE CAP 25 MG CAPSULE PO PRN (02:07)
[2018-12-24] MEDS ORDERED: ACETAMINOPHEN 325 MG TABLET PO PRN (02:07)
[2018-12-24] MEDS ORDERED: NICOTINE 21 MG/24 HR PATCH TRANSDERM PRN (02:07)
[2018-12-24] MEDS ORDERED: MORPHINE 4 MG/1 ML VIAL IV PRN (02:07)
[2018-12-24 02:51] LABS: Risk Ratio 3.03; Thyroid Stimulating Hormone 2.35 uIU/ml (0.358-3.74); VLDL CHOLESTEROL 25.4 MG/DL
[2018-12-24] MEDS ORDERED: ATROPINE 1 MG/10 ML SYRINGE IV ONE ×2 (03:30→18:34)
[2018-12-24 08:27] LABS: Albumin 3.3 G/DL (3.4-5.0); Bilirubin,Total 0.9 MG/DL (0.2-1.0); Calcium 9.3 MG/DL (8.5-10.1); Osmolality,Calculated 265.2 MOS/KG (273-304); Total Protein 7.2 G/DL (6.4-8.3)
[2018-12-24] MEDS: PANTOPRAZOLE 40 MG TABLET PO SCH (09:34)
[2018-12-24] MEDS: ASPIRIN EC 81 MG TABLET PO SCH (14:36)
[2018-12-24] MEDS: FUROSEMIDE 80 MG TABLET PO SCH (14:36)
[2018-12-24] MEDS: SACUBITRIL/VALSARTAN 49-51 MG TABLET PO SCH ×2 (14:36→20:06)
[2018-12-24] MEDS ORDERED: cefTRIAXone 1,000 MG in SYRINGE 1 EACH IV SCH (15:00)
[2018-12-24 15:46] LABS: Apearance,Urine CLEAR (Clear); Bacteria,Urine Occasional /HPF (Few); Bilirubin,Urine Negative (Negative); Blood, Urine Small mg/dL (Negative); Glucose,Urine (UA) Negative (Negative); Ketones,Urine Negative (Negative); Nitrite,Urine Negative (Negative); Protein,Urine Negative; RBC,Urine 2 /HPF (0-4); Squamous Epithelial Cell,Urine Occasional /HPF (0-10); Urine Color Yellow (Yellow); Urine Specific Gravity 1.004 (1.001-1.035); Urine Urobilinogen < 2.0 EU/DL (0.2-1.0); WBC,Urine 4 /HPF (0-6)
[2018-12-24] MEDS ORDERED: PHENYTOIN INJ 1,000 MG in SODIUM CHLORIDE 0.9% 100 ML IV ONE (16:30)
[2018-12-24] MEDS: ATORVASTATIN 40 MG TABLET PO SCH (20:06)
[2018-12-24] MEDS: SODIUM CHLORIDE 1 GM TABLET PO SCH (20:06)
[2018-12-24] MEDS: PHENYTOIN ER 100 MG CAPSULE PO SCH (20:06)
[2018-12-24] MEDS ORDERED: ATROPINE 1 MG/10 ML SYRINGE IV PRN (20:21)
[2018-12-25 04:38] LABS: Basophils # 0.1 10*3/uL (0.0-0.2); Basophils % 0.8 % (0.0-0.8); Eosinophils # 0.3 10*3/uL (0.0-0.87); Eosinophils % 4.2 % (0.00-10.9); Hematocrit 29.9 VOL% (35.7-47.0); Hemoglobin 9.7 GM/DL (12.0-16.0); Immature Granulocytes % 0.3 %; Immature Granulocytes Absolute 0.02 #; Lymphocytes # 0.5 10*3/uL (1.4-4.0); Lymphocytes % 6.3 % (21.3-54.2); Mean Corpuscular HGB Conc 32.4 GM/DL (32-36); Mean Corpuscular Volume 91.4 FL (87-102); Mean Platelet Volume 11.5 FL (9.6-12.0); Monocytes % 8.5 % (1.7-12.7); Neutrophils % 79.9 % (38.7-73.9); Platelet Count 121 T/CUMM (130-400); Red Blood Count 3.27 MC/CUMM (3.8-5.5); Red Cell Distribution Width 13.5 % (9.3-17.3); White Blood Count 7.9 T/CUMM (4-12)
[2018-12-25 05:22] LABS: Calcium 8.6 MG/DL (8.5-10.1); Osmolality,Calculated 277.5 MOS/KG (273-304)
[2018-12-25] MEDS: cefTRIAXone 1,000 MG in SYRINGE 1 EACH IV SCH (08:56)
[2018-12-25] MEDS: SACUBITRIL/VALSARTAN 49-51 MG TABLET PO SCH ×2 (08:56→21:07)
[2018-12-25] MEDS: PHENYTOIN ER 100 MG CAPSULE PO SCH ×3 (08:56→21:07)
[2018-12-25] MEDS: SODIUM CHLORIDE 1 GM TABLET PO SCH ×3 (08:56→21:07)
[2018-12-25] MEDS: ASPIRIN EC 81 MG TABLET PO SCH (08:56)
[2018-12-25] MEDS: FUROSEMIDE 80 MG TABLET PO SCH (08:56)
[2018-12-25] MEDS: PANTOPRAZOLE 40 MG TABLET PO SCH (08:56)
[2018-12-25] MEDS: ENOXAPARIN 30 MG/0.3 ML SYRINGE SUBCUT SCH (10:12)
[2018-12-25] MEDS: hydrALAZINE 25 MG TABLET PO SCH ×2 (10:12→16:04)
[2018-12-25] MEDS: MAGNESIUM CHLORIDE 64 MG TABLET PO SCH (14:10)
[2018-12-25] MEDS: INSULIN REGULAR 100 UNIT/ML SUBCUT SCH ×2 (16:40→21:08)
[2018-12-25] MEDS: ATORVASTATIN 40 MG TABLET PO SCH (21:07)
[2018-12-26] MEDS: hydrALAZINE 25 MG TABLET PO SCH ×4 (00:22→20:59)
[2018-12-26 04:03] LABS: Basophils % 0.6 % (0.0-0.8); Eosinophils # 0.2 10*3/uL (0.0-0.87); Eosinophils % 3.3 % (0.00-10.9); Hematocrit 29.3 VOL% (35.7-47.0); Hemoglobin 9.6 GM/DL (12.0-16.0); Immature Granulocytes % 0.3 %; Immature Granulocytes Absolute 0.02 #; Lymphocytes # 0.7 10*3/uL (1.4-4.0); Lymphocytes % 10.2 % (21.3-54.2); Mean Corpuscular HGB Conc 32.8 GM/DL (32-36); Mean Corpuscular Volume 91.6 FL (87-102); Monocytes % 8.2 % (1.7-12.7); Neutrophils % 77.4 % (38.7-73.9); Platelet Count 128 T/CUMM (130-400); Red Cell Distribution Width 13.5 % (9.3-17.3); White Blood Count 6.4 T/CUMM (4-12)
[2018-12-26 04:28] LABS: Calcium 8.9 MG/DL (8.5-10.1); Osmolality,Calculated 286.7 MOS/KG (273-304)
[2018-12-26] MEDS: INSULIN REGULAR 100 UNIT/ML SUBCUT SCH ×4 (08:10→21:00)
[2018-12-26] MEDS: PANTOPRAZOLE 40 MG TABLET PO SCH (09:08)
[2018-12-26] MEDS: SODIUM CHLORIDE 1 GM TABLET PO SCH ×3 (09:08→21:00)
[2018-12-26] MEDS: ASPIRIN EC 81 MG TABLET PO SCH (09:08)
[2018-12-26] MEDS: SACUBITRIL/VALSARTAN 49-51 MG TABLET PO SCH ×2 (09:08→20:59)
[2018-12-26] MEDS: FUROSEMIDE 80 MG TABLET PO SCH (09:08)
[2018-12-26] MEDS: MAGNESIUM CHLORIDE 64 MG TABLET PO SCH (09:08)
[2018-12-26] MEDS: PHENYTOIN ER 100 MG CAPSULE PO SCH ×3 (09:09→20:59)
[2018-12-26] MEDS: ENOXAPARIN 30 MG/0.3 ML SYRINGE SUBCUT SCH (09:09)
[2018-12-26] MEDS: cefTRIAXone 1,000 MG in SYRINGE 1 EACH IV SCH (09:13)
[2018-12-26] MEDS: MAGNESIUM OXIDE 400 MG TABLET PO SCH (13:38)
[2018-12-26] MEDS: ATORVASTATIN 40 MG TABLET PO SCH (21:00)
[2018-12-27 04:55] LABS: Basophils % 0.6 % (0.0-0.8); Eosinophils # 0.2 10*3/uL (0.0-0.87); Eosinophils % 2.6 % (0.00-10.9); Hematocrit 28.1 VOL% (35.7-47.0); Hemoglobin 9.2 GM/DL (12.0-16.0); Immature Granulocytes % 0.3 %; Immature Granulocytes Absolute 0.02 #; Lymphocytes # 0.9 10*3/uL (1.4-4.0); Lymphocytes % 13.3 % (21.3-54.2); Mean Corpuscular HGB Conc 32.7 GM/DL (32-36); Mean Corpuscular Volume 92.7 FL (87-102); Mean Platelet Volume 11.1 FL (9.6-12.0); Monocytes % 10.5 % (1.7-12.7); Neutrophils % 72.7 % (38.7-73.9); Platelet Count 140 T/CUMM (130-400); Red Blood Count 3.03 MC/CUMM (3.8-5.5); Red Cell Distribution Width 13.9 % (9.3-17.3); White Blood Count 6.9 T/CUMM (4-12)
[2018-12-27 05:03] LABS: Calcium 8.5 MG/DL (8.5-10.1); Osmolality,Calculated 287.4 MOS/KG (273-304)
[2018-12-27] MEDS: INSULIN REGULAR 100 UNIT/ML SUBCUT SCH ×4 (07:04→21:27)
[2018-12-27] MEDS: SACUBITRIL/VALSARTAN 49-51 MG TABLET PO SCH ×2 (08:23→21:26)
[2018-12-27] MEDS: ASPIRIN EC 81 MG TABLET PO SCH (08:24)
[2018-12-27] MEDS: SODIUM CHLORIDE 1 GM TABLET PO SCH ×3 (08:24→21:27)
[2018-12-27] MEDS: MAGNESIUM CHLORIDE 64 MG TABLET PO SCH (08:24)
[2018-12-27] MEDS: FUROSEMIDE 80 MG TABLET PO SCH (08:24)
[2018-12-27] MEDS: PANTOPRAZOLE 40 MG TABLET PO SCH (08:24)
[2018-12-27] MEDS: hydrALAZINE 25 MG TABLET PO SCH ×3 (08:26→21:27)
[2018-12-27] MEDS: PHENYTOIN ER 100 MG CAPSULE PO SCH ×3 (08:26→21:26)
[2018-12-27] MEDS: ENOXAPARIN 30 MG/0.3 ML SYRINGE SUBCUT SCH ×2 (08:28→09:56)
[2018-12-27] MEDS: cefTRIAXone 1,000 MG in SYRINGE 1 EACH IV SCH (08:29)
[2018-12-27] MEDS: MAGNESIUM OXIDE 400 MG TABLET PO SCH (08:31)
[2018-12-27] MEDS ORDERED: POTASSIUM CHLORIDE 20 MEQ TABLET PO SCH (09:00)
[2018-12-27] MEDS ORDERED: POTASSIUM CHLORIDE 20 MEQ TABLET PO ONE ×2 (12:00→18:00)
[2018-12-27] MEDS: POTASSIUM CHLORIDE 20 MEQ TABLET PO SCH (21:27)
[2018-12-27] MEDS: ATORVASTATIN 40 MG TABLET PO SCH (21:30)
[2018-12-28 04:35] LABS: Basophils # 0.1 10*3/uL (0.0-0.2); Basophils % 0.7 % (0.0-0.8); Eosinophils # 0.1 10*3/uL (0.0-0.87); Eosinophils % 1.9 % (0.00-10.9); Hematocrit 29.9 VOL% (35.7-47.0); Hemoglobin 9.5 GM/DL (12.0-16.0); Immature Granulocytes % 0.3 %; Immature Granulocytes Absolute 0.02 #; Lymphocytes # 0.7 10*3/uL (1.4-4.0); Lymphocytes % 9.3 % (21.3-54.2); Mean Corpuscular HGB Conc 31.8 GM/DL (32-36); Mean Corpuscular Volume 92.9 FL (87-102); Mean Platelet Volume 10.7 FL (9.6-12.0); Monocytes % 8.7 % (1.7-12.7); Neutrophils % 79.1 % (38.7-73.9); Platelet Count 148 T/CUMM (130-400); Red Blood Count 3.22 MC/CUMM (3.8-5.5); White Blood Count 7.6 T/CUMM (4-12)
[2018-12-28 04:56] LABS: Calcium 8.8 MG/DL (8.5-10.1); Osmolality,Calculated 293.1 MOS/KG (273-304)
[2018-12-28] MEDS ORDERED: ceFAZolin 1,000 MG VIAL IRRIG ONE (08:02)
[2018-12-28] MEDS ORDERED: ceFAZolin 1,000 MG in SYRINGE 1 EACH IV ONE (08:02)
[2018-12-28] MEDS: INSULIN REGULAR 100 UNIT/ML SUBCUT SCH ×4 (08:04→21:45)
[2018-12-28] MEDS: POTASSIUM CHLORIDE 20 MEQ TABLET PO SCH ×2 (10:05→21:44)
[2018-12-28] MEDS: MAGNESIUM OXIDE 400 MG TABLET PO SCH (10:05)
[2018-12-28] MEDS: SODIUM CHLORIDE 1 GM TABLET PO SCH ×3 (10:06→21:43)
[2018-12-28] MEDS: PANTOPRAZOLE 40 MG TABLET PO SCH (10:06)
[2018-12-28] MEDS: hydrALAZINE 25 MG TABLET PO SCH ×3 (10:06→21:44)
[2018-12-28] MEDS: PHENYTOIN ER 100 MG CAPSULE PO SCH ×3 (10:06→21:43)
[2018-12-28] MEDS: FUROSEMIDE 80 MG TABLET PO SCH (10:06)
[2018-12-28] MEDS: SACUBITRIL/VALSARTAN 49-51 MG TABLET PO SCH ×2 (10:08→21:43)
[2018-12-28] MEDS: ASPIRIN EC 81 MG TABLET PO SCH (10:08)
[2018-12-28] MEDS ORDERED: LIDOCAINE 1% 20 ML VIAL ONE (15:19)
[2018-12-28] MEDS ORDERED: HEPARIN/NACL 0.9% 2 UNITS/ML 500 ML IV ONE (15:19)
[2018-12-28] MEDS ORDERED: TISSUE ADHESIVE 1 EACH APPLICATOR TOP ONE (15:19)
[2018-12-28] MEDS ORDERED: MIDAZOLAM 2 MG/2 ML VIAL ONE (15:23)
[2018-12-28] MEDS ORDERED: fentaNYL 100 MCG/2 ML VIAL ONE (15:24)
[2018-12-28] MEDS: ATORVASTATIN 40 MG TABLET PO SCH (21:44)
[2018-12-28] MEDS: CARVEDILOL 6.25 MG TABLET PO SCH (21:44)
[2018-12-29 04:08] LABS: Basophils # 0.1 10*3/uL (0.0-0.2); Basophils % 0.8 % (0.0-0.8); Eosinophils # 0.1 10*3/uL (0.0-0.87); Eosinophils % 1.5 % (0.00-10.9); Hematocrit 33.4 VOL% (35.7-47.0); Hemoglobin 10.6 GM/DL (12.0-16.0); Immature Granulocytes % 0.4 %; Immature Granulocytes Absolute 0.04 #; Lymphocytes # 0.6 10*3/uL (1.4-4.0); Lymphocytes % 6.5 % (21.3-54.2); Mean Corpuscular HGB Conc 31.7 GM/DL (32-36); Mean Corpuscular Volume 94.1 FL (87-102); Mean Platelet Volume 10.6 FL (9.6-12.0); Monocytes % 8.3 % (1.7-12.7); Neutrophils % 82.5 % (38.7-73.9); Platelet Count 161 T/CUMM (130-400); Red Blood Count 3.55 MC/CUMM (3.8-5.5); Red Cell Distribution Width 14.2 % (9.3-17.3); White Blood Count 9.5 T/CUMM (4-12)
[2018-12-29 04:36] LABS: Calcium 9.1 MG/DL (8.5-10.1); Osmolality,Calculated 297.8 MOS/KG (273-304)
[2018-12-29] MEDS ORDERED: CARVEDILOL 12.5 MG TABLET PO SCH (08:35)
[2018-12-29] MEDS ORDERED: AMOXICILLIN/CLAV 500 MG TABLET PO SCH (09:00)
[2018-12-29] MEDS: INSULIN REGULAR 100 UNIT/ML SUBCUT SCH ×2 (09:27→12:11)
[2018-12-29] MEDS: CARVEDILOL 6.25 MG TABLET PO SCH (09:28)
[2018-12-29] MEDS: hydrALAZINE 25 MG TABLET PO SCH (09:41)
[2018-12-29] MEDS: POTASSIUM CHLORIDE 20 MEQ TABLET PO SCH (09:41)
[2018-12-29] MEDS: SACUBITRIL/VALSARTAN 49-51 MG TABLET PO SCH (09:41)
[2018-12-29] MEDS: MAGNESIUM OXIDE 400 MG TABLET PO SCH (09:41)
[2018-12-29] MEDS: PANTOPRAZOLE 40 MG TABLET PO SCH (09:41)
[2018-12-29] MEDS: SODIUM CHLORIDE 1 GM TABLET PO SCH (09:41)
[2018-12-29] MEDS: ASPIRIN EC 81 MG TABLET PO SCH (09:42)
[2018-12-29] MEDS: PHENYTOIN ER 100 MG CAPSULE PO SCH (09:42)
[2018-12-29] MEDS: FUROSEMIDE 80 MG TABLET PO SCH (09:43)
[2018-12-29 12:23] VITALS: BP 136/79
[2018-12-30] MEDS ORDERED: RIVAROXABAN 20 MG TABLET PO SCH (08:00)
== END 2018-12-29 15:00 | DRG 243 ==
LOC: EDBD → EDUNIT# → N.CC 22:09 → N.ED 22:09 → N.EDINP 22:09 → SUATTDRO 12-24 02:07 → SUPCPDRO 12-24 02:07 → N.2E 12-24 02:30 → N.CC 12-24 06:48 → SUATTDRO 12-25 11:19 → N.TELES 12-25 17:56
PROVIDERS: ADMIT Internal Medicine; ATTEND Internal Medicine

== ENCOUNTER 2019-01-11 12:48 | Observation (INO) ==
[2019-01-11] MEDS ORDERED: SODIUM CHLORIDE 0.9% 500 ML IV STA (13:41)
[2019-01-11 13:56] LABS: Basophils # 0.1 10*3/uL (0.0-0.2); Basophils % 0.6 % (0.0-0.8); Eosinophils # 0.1 10*3/uL (0.0-0.87); Eosinophils % 1.4 % (0.00-10.9); Hematocrit 32.5 VOL% (35.7-47.0); Hemoglobin 10.2 GM/DL (12.0-16.0); Immature Granulocytes % 0.6 %; Immature Granulocytes Absolute 0.05 #; Lymphocytes # 0.6 10*3/uL (1.4-4.0); Lymphocytes % 8.1 % (21.3-54.2); Mean Corpuscular HGB Conc 31.4 GM/DL (32-36); Mean Corpuscular Volume 95.6 FL (87-102); Mean Platelet Volume 10.7 FL (9.6-12.0); Monocytes % 5.8 % (1.7-12.7); Neutrophils % 83.5 % (38.7-73.9); Platelet Count 238 T/CUMM (130-400); Red Cell Distribution Width 15.5 % (9.3-17.3)
[2019-01-11 14:04] LABS: INR 1.2; PT Patient Result 13.1 SECS
[2019-01-11 14:20] LABS: Albumin 3.2 G/DL (3.4-5.0); Bilirubin,Total 0.4 MG/DL (0.2-1.0); Calcium 9.2 MG/DL (8.5-10.1); Osmolality,Calculated 285.5 MOS/KG (273-304); Thyroid Stimulating Hormone 1.56 uIU/ml (0.358-3.74); Total Protein 7.5 G/DL (6.4-8.3)
[2019-01-11 15:00] LABS: Hyaline Casts,Urine 3 /LPF (0-3); RBC,Urine 1 /HPF (0-4); Squamous Epithelial Cell,Urine Few /HPF (0-10); Transitional Epi Cells,Urine Few /HPF (<1); WBC,Urine 3 /HPF (0-6)
[2019-01-11] MEDS ORDERED: FUROSEMIDE 40 MG/4 ML VIAL IV STA (15:02)
[2019-01-11 15:13] LABS: Apearance,Urine Clear (Clear); Bilirubin,Urine Negative (Negative); Blood, Urine Negative (Negative); Glucose,Urine (UA) Negative (Negative); Ketones,Urine Negative (Negative); Nitrite,Urine Negative (Negative); Protein,Urine Negative; Urine Color Yellow (Yellow); Urine Specific Gravity 1.005 (1.001-1.035)
[2019-01-11 15:14] LABS: Urine Urobilinogen 0.2 EU/DL (0.2-1.0)
[2019-01-11 15:19] LABS: Barbiturates Screen,Urine Negative (Negative); Benzodiazepines Screen,Urine Negative (Negative); Cannabinoid Screen,Urine Negative (Negative); Opiate Screen,Urine Negative (Negative); Phencyclidine Screen,Urine Negative (Negative)
[2019-01-11] MEDS ORDERED: cefTRIAXone 1,000 MG in SODIUM CHLORIDE 0.9% 100 ML IV STA (15:21)
[2019-01-11] MEDS ORDERED: ONDANSETRON 4 MG/2 ML VIAL IV PRN (16:33)
[2019-01-11] MEDS ORDERED: CYANOCOBALAMIN 500 MCG TABLET PO SCH (17:30)
[2019-01-11] MEDS: SACUBITRIL/VALSARTAN 49-51 MG TABLET PO SCH (20:49)
[2019-01-11] MEDS: PHENYTOIN ER 100 MG CAPSULE PO SCH (20:50)
[2019-01-11] MEDS: FERROUS SULFATE 325 MG TABLET PO SCH (20:50)
[2019-01-11] MEDS: hydrALAZINE 25 MG TABLET PO SCH (20:50)
[2019-01-11] MEDS ORDERED: ATORVASTATIN 40 MG TABLET PO SCH (21:00)
[2019-01-12 05:57] LABS: Basophils # 0.1 10*3/uL (0.0-0.2); Eosinophils # 0.2 10*3/uL (0.0-0.87); Eosinophils % 2.7 % (0.00-10.9); Immature Granulocytes % 0.4 %; Immature Granulocytes Absolute 0.03 #; Lymphocytes % 15.3 % (21.3-54.2); Mean Corpuscular HGB Conc 32.1 GM/DL (32-36); Mean Corpuscular Volume 94.3 FL (87-102); Monocytes % 8.8 % (1.7-12.7); Neutrophils % 71.8 % (38.7-73.9); Platelet Count 204 T/CUMM (130-400); Red Blood Count 2.97 MC/CUMM (3.8-5.5); Red Cell Distribution Width 15.5 % (9.3-17.3); White Blood Count 6.7 T/CUMM (4-12)
[2019-01-12 06:31] LABS: Calcium 9.1 MG/DL (8.5-10.1); Osmolality,Calculated 285.4 MOS/KG (273-304); Risk Ratio 3.18; VLDL CHOLESTEROL 23.6 MG/DL
[2019-01-12] MEDS ORDERED: CARVEDILOL 12.5 MG TABLET PO SCH (08:00)
[2019-01-12] MEDS ORDERED: RIVAROXABAN 20 MG TABLET PO SCH (08:00)
[2019-01-12] MEDS ORDERED: cefTRIAXone 1,000 MG in SYRINGE 1 EACH IV SCH (09:00)
[2019-01-12] MEDS ORDERED: ESCITALOPRAM 10 MG TABLET PO SCH (09:00)
[2019-01-12] MEDS ORDERED: PANTOPRAZOLE 40 MG TABLET PO SCH (09:00)
[2019-01-12] MEDS ORDERED: FUROSEMIDE 80 MG TABLET PO SCH (09:00)
[2019-01-12] MEDS ORDERED: ASPIRIN EC 81 MG TABLET PO SCH (09:00)
[2019-01-12] MEDS ORDERED: POTASSIUM CHLORIDE 10 MEQ TABLET PO SCH (09:00)
[2019-01-12] MEDS: SACUBITRIL/VALSARTAN 49-51 MG TABLET PO SCH (09:04)
[2019-01-12] MEDS: hydrALAZINE 25 MG TABLET PO SCH ×2 (09:04→14:59)
[2019-01-12] MEDS: FERROUS SULFATE 325 MG TABLET PO SCH (09:05)
[2019-01-12] MEDS: PHENYTOIN ER 100 MG CAPSULE PO SCH ×2 (09:05→14:59)
[2019-01-12] MEDS ORDERED: MAGNESIUM OXIDE 400 MG TABLET PO SCH (10:00)
[2019-01-12] MEDS ORDERED: PHENYTOIN INJ 500 MG in SODIUM CHLORIDE 0.9% 100 ML IV ONE (13:00)
[2019-01-12 16:20] VITALS: BP 95/72
== END 2019-01-12 16:22 ==
LOC: EDUNIT# → EDBD → N.EDINP 12:48 → N.ED 12:48 → N.2E 17:54
PROVIDERS: ADMIT Internal Medicine; ATTEND Internal Medicine